=== PATIENT | female | born 1955 | race Two or more races ===

== ENCOUNTER 2017-12-10 15:05 | Inpatient (IN) | payer MEDICARE, OTHER ==
--- NOTE | 2017-12-10 15:44 | ED Physician Chart ---
ED Chief Complaint/HPI - Patient Information Date Seen:: 12/10/17 Time Seen:: 15:35 Chief Complaint:: combative History of Present Illness:: THIS IS A 62 YO FEMALE SENT FROM A [facility] FOR AN EVALUATION AND TREATMENT FOR HER PSYCHOSIS. SHE DENIES HAVING ANY CHEST, ABDOMEN AND HEAD PAIN. SHE ADMITS TO DIABETES AND HEART DISEASE. Allergies:: Allergies Allergy/AdvReac Type Severity Reaction Status Date / Time No Known Allergies Allergy Verified 12/10/17 15:20 Vitals:: Vital Signs - 8 hr 12/10/17 15:20 Temp 98.3 F HR 85 RR 16 BP 136/65 O2 Sat % 95 Historian:: Medical Records Review:: Nurse's Note Reviewed, Transfer documents Reviewed ED Review of Systems - Review of Systems General/Constitutional: No fever, No chills, No weight loss, No weakness, No diaphoresis, No edema, No loss of appetite Skin: No skin lesions, No rash, No bruising Head: No headache, No light-headedness Eyes: No loss of vision, No pain, No diplopia ENT: No earache, No nasal drainage, No sore throat, No tinnitus Neck: No neck pain, No swelling, No thyromegaly, No stiffness, No mass noted Cardio Vascular: No chest pain, No palpitations, No PND, No orthopnea, No edema Pulmonary: No SOB, No cough, No sputum, No wheezing GI: No nausea, No vomiting, No diarrhea, No pain, No melena, No hematochezia, No constipation, No hematemesis G/U: No dysuria, No frequency, No hematuria Musculoskeletal: No bone or joint pain, No back pain, No muscle pain Endocrine: No polyuria, No polydipsia Psychiatric: Prior psych history, No depression, No anxiety, No suicidal ideation Hematopoietic: No bruising, No lymphadenopathy Allergic/Immuno: No urticaria, No angioedema Neurological: No syncope, No focal symptoms, No weakness, No paresthesia, No headache, No seizure, No dizziness, No confusion, No vertigo ED Past Medical History - Past Medical History Obtainable: Yes Past Medical History: HTN, DM, CAD, CVA/TIA, Dyslipidemia Family History: None Social History: Non Smoker, No Alcohol, No Drug Use, Care Facility Surgical History: other (STENT PLACED IN THE HEART) Family Medical History - Family Member Brother History Unknown: Yes Age: 50 Ethnicity: Non- Living Status: Still Living Other Medical History: DOWNE'S SYNDROME ED Physical Exam - Physical Examination General/Constitutional: Awake, Well-developed, well-nourished, Alert, No distress, GCS 15, Non-toxic appearing, Ambulatory Head: Atraumatic Eyes: Lids, conjuctiva normal, PERRL, EOMI Skin: Nl inspection, No rash, No skin lesions, No ecchymosis, Well hydrated, No lymphadenopathy ENMT: External ears, nose nl, Nasal exam nl, Lips, teeth, gums nl Neck: Nontender, Full ROM w/o pain, No JVD, No nuchal rigidity, No bruit, No mass, No stridor Respiratory: Nl effort/Exclusion, Clear to Auscultation, No Wheeze/Rhonchi/Rales Cardio Vascular: RRR, No murmur, gallop, rubs, NL S1 S2 GI: No tenderness/rebounding/guarding, No organomegaly, No hernia, Normal BS's, Nondistended, No mass/bruits, No McBurney tenderness : No CVA tenderness Extremities: No tenderness or effusion, Full ROM, normal strength in all extremities, No edema, Normal digits & nails Neuro/Psych: Alert/oriented, DTR's symmetric, Normal sensory exam, Normal motor strength, Judgement/insight normal, Mood normal (COMBATIVE), Normal gait, No focal deficits Misc: Normal back, No paraspinal tenderness ED Labs/Radiology/EKG Results - Lab Results Results: Abnormal Lab Results 12/10/17 12/10/17 12/10/17 15:35 15:35 15:35 WBC 5.2 RBC 4.56 Hgb 14.2 Hct 42.4 MCV 93.2 MCH 31.2 H MCHC Differential 33.5 RDW 12.5 Plt Count 214 MPV 10.7 Neutrophils % 66.2 Lymphocytes % 27.0 Monocytes % 4.4 Eosinophils % 1.4 Basophils % 1.0 PT 10.2 INR 0.98 PTT (Actin FS) 19.6 L Sodium 131 L Potassium 4.9 Chloride 97 L Carbon Dioxide 24.9 Anion Gap 14.0 BUN 23 Creatinine 0.7 Est GFR ( Amer) > 60.0 Est GFR (Non-Af Amer) > 60.0 BUN/Creatinine Ratio 32.9 Glucose 639 H* Calcium 9.3 Total Bilirubin 0.3 AST 29 ALT 29 Alkaline Phosphatase 120 H Troponin I Total Protein 6.3 Albumin 3.6 L Globulin 2.7 Albumin/Globulin Ratio 1.3 12/10/17 15:35 WBC RBC Hgb Hct MCV MCH MCHC Differential RDW Plt Count MPV Neutrophils % Lymphocytes % Monocytes % Eosinophils % Basophils % PT INR PTT (Actin FS) Sodium Potassium Chloride Carbon Dioxide Anion Gap BUN Creatinine Est GFR ( Amer) Est GFR (Non-Af Amer) BUN/Creatinine Ratio Glucose Calcium Total Bilirubin AST ALT Alkaline Phosphatase Troponin I 0.01 Total Protein Albumin Globulin Albumin/Globulin Ratio - Radiology Results Results: CHEST X-RAY = NAD - EKG Interpretations EKG Time:: 15:20 Rate & Rhythm: RATE= 83, SINUS AND NO ECTOPY SEEN [place]: RIGHT ED Assessment - Assessment General Assessment: PSYCHOSIS DIABETES MELLITUS ED Septic Shock - . Is Septic Shock (SBP<90, OR Lactate>4 mmol\L) present?: No - <6hrs of presentation: Vital Signs: Vital Signs - 8 hr 12/10/17 15:20 Temp 98.3 F HR 85 RR 16 BP 136/65 O2 Sat % 95 ED Reassessment (Disposition) - Diagnosis Diagnosis:: PSYCHOSIS DIABETES MELLITUS - Patient Disposition Discharge/Transfer:: Acute Care w/in this hosp Admitting Medical Physician:: Samson Aldrich Admitting Psych Physician:: Florentin Wen Condition at Disposition:: Unchanged
[2017-12-10 15:47] LABS: % EOSINOPHILS 1.4 % (0.0-5.0); % MONOCYTES 4.4 % (2.0-10.0); % NEUTROPHILS 66.2 % (40.0-80.0); BASOPHILE ABSOLUTE 0.1 Th/cumm (0-0.2); EOSINOPHILE ABSOLUTE 0.1 Th/cmm (0.1-0.4); HEMATOCRIT 42.4 % (41.0-60); HEMOGLOBIN 14.2 gm/dL (12-16); LYMPHOCYTE ABSOLUTE 1.4 Th/cmm (1.5-3.0); MEAN CELL VOLUME 93.2 fl (81-100); MEAN CORPUSCULAR HEMOGLOBIN 31.2 pg (27.0-31.0); MEAN CORPUSCULAR HGB CONC 33.5 pg (28.0-36.0); MEAN PLATELET VOLUME 10.7 fl; MONOCYTE ABSOLUTE 0.2 Th/cmm (0.3-1.0); NEUTROPHILE ABSOLUTE 3.4 Th/cmm (1.8-8.0); PLATELET COUNT 214 Th/cmm (150-400); RED BLOOD COUNT 4.56 Mil/cmm (3.80-5.10); RED CELL DISTRIBUTION WIDTH 12.5 % (11.5-20.0); WHITE BLOOD COUNT 5.2 Th/cmm (4.8-10.8)
[2017-12-10 16:00] LABS: INR 0.98 (0.5-1.4); PROTHROMBIN TIME (TEST) 10.2 SECONDS (9.5-11.5)
[2017-12-10 16:01] LABS: ALB/GLOB RATIO 1.3 (1.0-1.8); ALBUMIN 3.6 gm/dL (3.7-5.3); ALKALINE PHOSPHATASE 120 U/L (34-104); BILIRUBIN,TOTAL 0.3 mg/dL (0.3-1.0); BUN - UREA NITROGEN 23 mg/dL (7-25); CALCIUM SERUM 9.3 mg/dL (8.6-10.3); CARBON DIOXIDE 24.9 mEq/L (21.0-31.0); CHLORIDE 97 mEq/L (98-107); CREATININE - SERUM 0.7 mg/dL (0.6-1.2); GFR AFRICAN-AMERICAN > 60.0 ml/min (>90); GFR NON AFRICAN-AMERICAN > 60.0 ml/min; POTASSIUM SERUM 4.9 mEq/L (3.5-5.1); SGOT 29 U/L (13-39); SGPT/ALT 29 U/L (7-52); SODIUM SERUM 131 mEq/L (136-145); TOTAL PROTEIN,SERUM 6.3 gm/dL (6.0-8.3)
[2017-12-10 16:03] LABS: GLUCOSE 639 mg/dL (70-105)
[2017-12-10] MEDS ORDERED: Sodium Chloride 0.45% 1,000 ML IV ONE (16:14)
[2017-12-10] MEDS ORDERED: INSULIN HUMAN REGULAR 100 UNITS/ML UNIT IV ONE (16:15)
[2017-12-10] MEDS ORDERED: INSULIN HUMAN REGULAR 100 UNITS/ML UNIT SUBQ ONE (16:15)
[2017-12-10] MEDS ORDERED: INSULIN HUMAN REGULAR 100 UNITS/ML UNIT ONE (16:29)
[2017-12-10 19:10] LABS: URINE SOURCE CLEAN C
[2017-12-10 19:12] LABS: URINE BILIRUBIN NEGATIVE (NEGATIVE); URINE BLOOD LARGE (NEGATIVE); URINE GLUCOSE (UA) >=1000 mg/dL (NEGATIVE); URINE KETONE TRACE mg/dL (NEGATIVE); URINE LEUKOCYTE ESTERASE TRACE (NEGATIVE); URINE MICROSCOPIC INDICATED? YES; URINE NITRATE NEGATIVE (NEGATIVE); URINE PROTEIN NEGATIVE (NEGATIVE); URINE UROBILINOGEN 0.2 E.U./dL (0.2 - 1.0)
[2017-12-10 19:18] LABS: URINE CLARITY CLOUDY (CLEAR); URINE COLOR YELLOW
[2017-12-10 19:19] LABS: URINE BACTERIA FEW /hpf (NONE SEEN); URINE EPITHELIAL CELLS OCCASIONAL /lpf (FEW)
[2017-12-10] MEDS ORDERED: Magnesium Hydroxide (MOM) 30 mL UDC PO PRN (19:19)
[2017-12-10] MEDS ORDERED: Maalox 30 mL Cup PO PRN (19:19)
[2017-12-10 19:21] LABS: URINE AMORPHOUS SEDIMENT MODERATE URATES (NONE SEEN)
[2017-12-10 19:35] VITALS: BP 118/55
[2017-12-10] MEDS: Atorvastatin Calcium 10 MG TAB PO SCH (20:36)
[2017-12-10] MEDS ORDERED: INSULIN GLARGINE HUM REC ANLOG 30 UNIT SUBQ SCH (21:00)
[2017-12-10] MEDS ORDERED: Non-Formulary Item 1 EA (Atorvastatin Calcium [Lipitor] 40 MG) PO SCH (21:00)
[2017-12-10] MEDS ORDERED: Magnesium Hydroxide (MOM) 30 mL UDC PO SCH (21:00)
[2017-12-10] MEDS ORDERED: INSULIN LISPRO 100 UNIT SUBQ SCH (21:00)
[2017-12-11] MEDS ORDERED: Non-Formulary Item 1 EA (Docusate Sodium [Docusate Sodium] 100 MG) PO SCH (09:00)
[2017-12-11] MEDS: Multivitamin Tab PO SCH (09:10)
[2017-12-11] MEDS: Multivitamin w/ Minerals Tab PO SCH (09:10)
[2017-12-11] MEDS: Aspirin 81mg Chewable Tab PO SCH (09:10)
--- NOTE | 2017-12-11 09:23 | Diagnostic Imaging Report ---
Chest x-ray single view History: Cough Comparison: None The heart size is normal. No focal pulmonary parenchymal processes. No hilar or mediastinal abnormalities. Impression: No acute abnormalities
[2017-12-11] MEDS ORDERED: Insulin Detemir 100 units/mL 10mL Vial SUBQ ONE (10:29)
[2017-12-11] MEDS ORDERED: INSULIN ASPART SLIDING SCALE 100 UNITS/ML UNIT SUBQ ONE (10:33)
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
[2017-12-11] MEDS: INSULIN ASPART SLIDING SCALE 100 UNITS/ML UNIT SUBQ SCH ×2 (12:12→18:23)
--- NOTE | 2017-12-11 17:55 | History & Physical ---
ADMIT DATE: 12/10/2017 REASON FOR ADMISSION: Agitation and combative behavior. HISTORY OF PRESENT ILLNESS: A 62-year-old female with past medical history significant for diabetes and hypertension, presents from care home for evaluation of agitation and behavioral aggressiveness. The patient was initially evaluated in the Emergency Room and medically cleared and admitted to psychiatric benz for further evaluation. The patient is awake and able to give some history although she is an unreliable historian. The patient denies any pain or distress. The patient and staff state that she has good appetite and oral intake. The patient appears cooperative and calm at this time. PAST MEDICAL HISTORY: The patient has history of insulin-dependent diabetes mellitus, hypertension, CVA with left-sided weakness, coronary artery disease, hyperlipidemia and depression. MEDICATIONS: As per reconciliation. ALLERGIES: The patient has allergy to IBUPROFEN. SOCIAL HISTORY: No tobacco, alcohol, or illicit drug use. FAMILY HISTORY: Noncontributory. REVIEW OF SYSTEMS: IMMUNOLOGIC: No recurrent infection. CARDIOVASCULAR: The patient has hypertension and heart disease. GASTROINTESTINAL: Denies nausea, vomiting, diarrhea. ENDOCRINE: The patient is diabetic. No thyroid disorder. NEUROLOGIC: The patient has had stroke before. No seizures. HEMATOLOGIC: No bleeding or clotting disorder. PHYSICAL EXAMINATION: GENERAL: The patient is awake and alert, in no acute distress. VITAL SIGNS: Temperature 98.3, pulse 77, respiration 18, blood pressure 105/57. SKIN: No acute lesions. HEENT: Pupils equally round, anicteric sclerae. NECK: Supple, no JVD, mass or bruit on auscultation. HEART: S1, S2, regular rate and rhythm. ABDOMEN: Soft, nontender, positive bowel sounds. EXTREMITIES: No clubbing, cyanosis, or edema. NEUROLOGIC: Left-sided weakness. LABORATORY DATA: Sodium is 131, potassium 4.9, BUN 23, creatinine 0.7, glucose is 639 on admission. IMPRESSION: 1. Insulin-dependent diabetes mellitus. 2. Hypertension ____. 3. Cerebrovascular accident. 4. Coronary artery disease. 5. Hyperlipidemia. 6. Depression. PLAN: The patient is admitted to [facility]. She is continued on current medications including her long-acting insulin as well as insulin sliding scale. I had a conversation with the staff today regarding glycemic control and close monitoring of her blood sugar. The patient is medically cleared to participate in activity. She will be followed while in facility. JOB# [id number]
[2017-12-11] MEDS: Atorvastatin Calcium 10 MG TAB PO SCH (21:36)
[2017-12-11] MEDS: Insulin Detemir 100 units/mL 10mL Vial SUBQ SCH (21:42)
[2017-12-11 23:02] LABS: A1C % 9.4 % (4.0-6.0)
[2017-12-12 06:55] LABS: ANION GAP 9.3 (7.0-16.0); BUN - UREA NITROGEN 19 mg/dL (7-25); CALCIUM SERUM 9.3 mg/dL (8.6-10.3); CARBON DIOXIDE 28.3 mEq/L (21.0-31.0); CHLORIDE 106 mEq/L (98-107); CREATININE - SERUM 0.5 mg/dL (0.6-1.2); GFR AFRICAN-AMERICAN > 60.0 ml/min (>90); GFR NON AFRICAN-AMERICAN > 60.0 ml/min; POTASSIUM SERUM 3.6 mEq/L (3.5-5.1); SODIUM SERUM 140 mEq/L (136-145)
[2017-12-12 07:04] LABS: GLUCOSE 51 mg/dL (70-105)
[2017-12-12] MEDS: INSULIN ASPART SLIDING SCALE 100 UNITS/ML UNIT SUBQ SCH ×4 (07:05→17:44)
[2017-12-12] MEDS: Multivitamin w/ Minerals Tab PO SCH (08:07)
[2017-12-12] MEDS: Aspirin 81mg Chewable Tab PO SCH (08:07)
[2017-12-12] MEDS: Multivitamin Tab PO SCH (08:07)
--- NOTE | 2017-12-12 15:28 | General Progress Note ---
Subjective - Review of Systems Service Date: 12/12/17 Subjective: resting comfortably no distress Objective - Results Result Diagrams: 12/10/17 15:35 12/12/17 06:18 Recent Labs: Laboratory Last Values WBC 5.2 Th/cmm (4.8-10.8) 12/10/17 15:35 RBC 4.56 Mil/cmm (3.80-5.10) 12/10/17 15:35 Hgb 14.2 gm/dL (12-16) 12/10/17 15:35 Hct 42.4 % (41.0-60) 12/10/17 15:35 MCV 93.2 fl (81-100) 12/10/17 15:35 MCH 31.2 pg (27.0-31.0) H 12/10/17 15:35 MCHC Differential 33.5 pg (28.0-36.0) 12/10/17 15:35 RDW 12.5 % (11.5-20.0) 12/10/17 15:35 Plt Count 214 Th/cmm (150-400) 12/10/17 15:35 MPV 10.7 fl 12/10/17 15:35 Neutrophils % 66.2 % (40.0-80.0) 12/10/17 15:35 Lymphocytes % 27.0 % (20.0-50.0) 12/10/17 15:35 Monocytes % 4.4 % (2.0-10.0) 12/10/17 15:35 Eosinophils % 1.4 % (0.0-5.0) 12/10/17 15:35 Basophils % 1.0 % (0.0-2.0) 12/10/17 15:35 PT 10.2 SECONDS (9.5-11.5) 12/10/17 15:35 INR 0.98 (0.5-1.4) 12/10/17 15:35 PTT (Actin FS) 19.6 SECONDS (26.0-38.0) L 12/10/17 15:35 Sodium 140 mEq/L (136-145) 12/12/17 06:18 Potassium 3.6 mEq/L (3.5-5.1) 12/12/17 06:18 Chloride 106 mEq/L (98-107) 12/12/17 06:18 Carbon Dioxide 28.3 mEq/L (21.0-31.0) 12/12/17 06:18 Anion Gap 9.3 (7.0-16.0) 12/12/17 06:18 BUN 19 mg/dL (7-25) 12/12/17 06:18 Creatinine 0.5 mg/dL (0.6-1.2) L 12/12/17 06:18 Est GFR ( Amer) > 60.0 ml/min (>90) 12/12/17 06:18 Est GFR (Non-Af Amer) > 60.0 ml/min 12/12/17 06:18 BUN/Creatinine Ratio 38.0 12/12/17 06:18 Glucose 51 mg/dL (70-105) L D 12/12/17 06:18 POC Glucose 421 MG/DL (70 - 105) H 12/12/17 12:05 Hemoglobin A1c % 9.4 % (4.0-6.0) H 12/10/17 15:35 Calcium 9.3 mg/dL (8.6-10.3) 12/12/17 06:18 Total Bilirubin 0.3 mg/dL (0.3-1.0) 12/10/17 15:35 AST 29 U/L (13-39) 12/10/17 15:35 ALT 29 U/L (7-52) 12/10/17 15:35 Alkaline Phosphatase 120 U/L (34-104) H 12/10/17 15:35 Troponin I 0.01 ng/mL (0.01-0.05) 12/10/17 15:35 Total Protein 6.3 gm/dL (6.0-8.3) 12/10/17 15:35 Albumin 3.6 gm/dL (3.7-5.3) L 12/10/17 15:35 Globulin 2.7 gm/dL 12/10/17 15:35 Albumin/Globulin Ratio 1.3 (1.0-1.8) 12/10/17 15:35 TSH 1.11 uIU/ml (0.34-5.60) 12/10/17 15:35 Urine Source CLEAN C 12/10/17 17:55 Urine Color YELLOW 12/10/17 17:55 Urine Clarity CLOUDY (CLEAR) H 12/10/17 17:55 Urine pH 6.0 (4.6 - 8.0) 12/10/17 17:55 Ur Specific [place] <= 1.005 (1.005-1.030) 12/10/17 17:55 Urine Protein NEGATIVE mg/dL (NEGATIVE) 12/10/17 17:55 Urine Glucose (UA) >=1000 mg/dL (NEGATIVE) H 12/10/17 17:55 Urine Ketones TRACE mg/dL (NEGATIVE) 12/10/17 17:55 Urine Blood LARGE (NEGATIVE) H 12/10/17 17:55 Urine Nitrate NEGATIVE (NEGATIVE) 12/10/17 17:55 Urine Bilirubin NEGATIVE (NEGATIVE) 12/10/17 17:55 Urine Urobilinogen 0.2 E.U./dL (0.2 - 1.0) 12/10/17 17:55 Ur Leukocyte Esterase TRACE (NEGATIVE) H 12/10/17 17:55 Urine RBC 5-10 /hpf (0-5) H 12/10/17 17:55 Urine WBC 2-5 /hpf (0-5) 12/10/17 17:55 Ur Epithelial Cells OCCASIONAL /lpf (FEW) 12/10/17 17:55 Amorphous Sediment MODERATE URATES (NONE SEEN) 12/10/17 17:55 Urine Bacteria FEW /hpf (NONE SEEN) 12/10/17 17:55 - Physical Exam Vitals and I&O: Vital Signs Temp 99.5 F 12/12/17 14:00 Pulse 76 12/12/17 14:00 Resp 20 12/12/17 14:00 BP 109/56 12/12/17 14:00 Pulse Ox 97 12/11/17 20:49 Intake & Output 12/11/17 12/12/17 12/12/17 18:59 06:59 18:59 Intake Total 1100 120 Balance 1100 120 Intake: Oral 1100 120 Other: # Voids 3 # Bowel Movements 0 Active Medications: Current Medications Acetaminophen (Tylenol) 650 mg PO Q4HR PRN PRN Reason: Mild Pain / Temp above 100 Stop: 02/08/18 19:18 Al Hydrox/Mg Hydrox/Simethicone (Maalox) 30 ml PO Q4HR PRN PRN Reason: GI DISTRESS Stop: 02/08/18 19:18 Aspirin (Aspirin Chewable) 81 mg PO DAILY KANG Stop: 02/09/18 08:59 Last Admin: 12/12/17 08:07 Dose: 81 mg Atorvastatin Calcium (Lipitor) 40 mg PO HS [facility]; Protocol Stop: 02/08/18 20:59 Last Admin: 12/11/17 21:36 Dose: 40 mg Clopidogrel Bisulfate (Plavix) 75 mg PO DAILY [facility] Stop: 02/09/18 08:59 Last Admin: 12/12/17 08:07 Dose: 75 mg Docusate Sodium (Colace) 100 mg PO DAILY [facility] Stop: 02/09/18 08:59 Last Admin: 12/12/17 08:07 Dose: 100 mg Insulin Aspart (Novolog Insulin Sliding Scale) 0 units SUBQ Q6HR [facility]; Protocol Stop: 02/09/18 11:59 Last Admin: 12/12/17 12:12 Dose: 13 units Insulin Detemir (Levemir Insulin) 30 units SUBQ HS [facility] Stop: 02/09/18 20:59 Last Admin: 12/11/17 21:42 Dose: 30 units Lorazepam (Ativan) 0.5 mg PO Q4HR PRN; Protocol PRN Reason: Anxiety Stop: 01/09/18 19:18 Magnesium Hydroxide (Milk Of Magnesia) 30 ml PO HS PRN PRN Reason: Constipation Metoprolol Tartrate (Lopressor) 25 mg PO BID [facility] Stop: 02/09/18 08:59 Last Admin: 12/12/17 08:07 Dose: 25 mg Multivitamins/Vitamin C (Theragran) 1 tab PO DAILY [facility] Stop: 02/09/18 08:59 Last Admin: 12/12/17 08:07 Dose: 1 tab Nitroglycerin (Nitrostat) 0.4 mg SL Q5MIN PRN PRN Reason: Chest Pain Stop: 02/08/18 18:09 Zolpidem Tartrate (Ambien) 5 mg PO HS PRN PRN Reason: Insomnia Stop: 02/08/18 19:18 Last Admin: 12/10/17 22:34 Dose: 5 mg General: No acute distress HEENT: Atraumatic, PERRLA Neck: Supple, JVD, Thyromegaly Cardiovascular: Regular rate, Normal S1, Normal S2 Lungs: Clear to auscultation Abdomen: Bowel sounds, Soft Assessment/Plan - Assessment Assessment: DM CAD HTN CVA - Plan Plan: cont current treatment Nutritional Asmnt/Malnutr-PDOC - Dietary Evaluation Malnutrition Findings (Please click <Entered> for more info): Nutritional Asmnt/Malnutrition Start: 12/12/17 09: 52 Text: Status: Complete Freq: Protocol: Document 12/12/17 09:52 [email or web address] F (Rec: 12/12/17 10:04 KARELY CARLOS- [email or web address]) Nutritional Asmnt/Malnutrition Patient General Information Nutritional Screening High Risk Consult Diagnosis Psychosis, cardiac disease Pertinent Medical Hx/Surgical Hx insulin-dependent diabetes, hypertension, CVA with left- sided weakness, coronary artery disease, hyperlipidemia , depression Subjective Information Consult received for cardiac diet. patient was admitted with BG 639. Patient in room at time of RD visit. Tolerating current diet order with adequate intake. Current Diet Order/ Nutrition Support Cardiac diet Patient / S.O Not Indicated Pertinent Medications maalox, lipitor, colace, novolog, levemir, MOM, Theragran Pertinent Labs Glucose 47-639, HGA1C 9.4, albumin 3.6 Nutritional Hx/Data Height 1.5 m Height (Calculated Centimeters) 149.9 Current Weight (lbs) 68.039 kg Weight (Calculated Kilograms) 68.0 Weight (Calculated Grams) 05573.9 [place] Body Weight 97.5 % [place] Body Weight 153 Body Mass Index (BMI) 30.2 Recent Weight Change No Weight Status Obese GI Symptoms GI Symptoms None Last BM none noted in EMR Difficult in: None Food Allergies No Cultural/Ethnic/Alevism Belief none indicated Usual diet at home unknown Skin Integrity/Comment: Roberto 17, No symptoms, abdomen soft, non-tender, round Current %PO Good (75-100%) Estimated Nutritional Goals BEE in Kcals: Adj wt of IBW Calories/Kcals/Kg 25-30 kcal/kg (using Adj wt 50 .2kg ) Kcals Calculated 9548-9903 kcal/day Protein: Adj wt of IBW Protein g/k-1.2 gm/kg Protein Calculated 50-60gm/day Fluid: ml 0182-5545 ml/day Nutritional Problem 1. Problem Problem Altered nutrition related lab values Etiology related to uncontrolled blood sugar aeb Signs/Symptoms: Glucose 47-639, HGA1C 9.4 Intervention/Recommendation Comments 1. Consider modifying diet to 45gm CCHO, cardiac diet. 2. MD to continue to modify insulin regimen for optimal glycemic control. Expected Outcomes/Goals Expected Outcomes/Goals Oral intake >75% of meals, weight stable or trend toward ideal body weight, nutrition related labs normalize
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
[2017-12-12] MEDS: Atorvastatin Calcium 10 MG TAB PO SCH (20:46)
[2017-12-12] MEDS: Insulin Detemir 100 units/mL 10mL Vial SUBQ SCH ×2 (21:00→22:39)
[2017-12-13] MEDS: INSULIN ASPART SLIDING SCALE 100 UNITS/ML UNIT SUBQ SCH ×4 (00:29→18:05)
[2017-12-13] MEDS: Multivitamin w/ Minerals Tab PO SCH (09:19)
[2017-12-13] MEDS: Aspirin 81mg Chewable Tab PO SCH (09:20)
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
--- NOTE | 2017-12-13 19:59 | Internal Medicine Prog Note ---
Internal Medicine Subjective - Subjective Service Date: 12/13/17 Patient seen and examined:: with staff Patient is:: awake, verbal, arousable, in bed, talking, confused Per staff patient has:: no adverse event Internal Medicine Objective - Results Result Diagrams: 12/10/17 15:35 12/12/17 06:18 Recent Labs: Laboratory Last Values WBC 5.2 Th/cmm (4.8-10.8) 12/10/17 15:35 RBC 4.56 Mil/cmm (3.80-5.10) 12/10/17 15:35 Hgb 14.2 gm/dL (12-16) 12/10/17 15:35 Hct 42.4 % (41.0-60) 12/10/17 15:35 MCV 93.2 fl (81-100) 12/10/17 15:35 MCH 31.2 pg (27.0-31.0) H 12/10/17 15:35 MCHC Differential 33.5 pg (28.0-36.0) 12/10/17 15:35 RDW 12.5 % (11.5-20.0) 12/10/17 15:35 Plt Count 214 Th/cmm (150-400) 12/10/17 15:35 MPV 10.7 fl 12/10/17 15:35 Neutrophils % 66.2 % (40.0-80.0) 12/10/17 15:35 Lymphocytes % 27.0 % (20.0-50.0) 12/10/17 15:35 Monocytes % 4.4 % (2.0-10.0) 12/10/17 15:35 Eosinophils % 1.4 % (0.0-5.0) 12/10/17 15:35 Basophils % 1.0 % (0.0-2.0) 12/10/17 15:35 PT 10.2 SECONDS (9.5-11.5) 12/10/17 15:35 INR 0.98 (0.5-1.4) 12/10/17 15:35 PTT (Actin FS) 19.6 SECONDS (26.0-38.0) L 12/10/17 15:35 Sodium 140 mEq/L (136-145) 12/12/17 06:18 Potassium 3.6 mEq/L (3.5-5.1) 12/12/17 06:18 Chloride 106 mEq/L (98-107) 12/12/17 06:18 Carbon Dioxide 28.3 mEq/L (21.0-31.0) 12/12/17 06:18 Anion Gap 9.3 (7.0-16.0) 12/12/17 06:18 BUN 19 mg/dL (7-25) 12/12/17 06:18 Creatinine 0.5 mg/dL (0.6-1.2) L 12/12/17 06:18 Est GFR ( Amer) > 60.0 ml/min (>90) 12/12/17 06:18 Est GFR (Non-Af Amer) > 60.0 ml/min 12/12/17 06:18 BUN/Creatinine Ratio 38.0 12/12/17 06:18 Glucose 51 mg/dL (70-105) L D 12/12/17 06:18 POC Glucose 73 MG/DL (70 - 105) 12/13/17 05:22 Hemoglobin A1c % 9.4 % (4.0-6.0) H 12/10/17 15:35 Calcium 9.3 mg/dL (8.6-10.3) 12/12/17 06:18 Total Bilirubin 0.3 mg/dL (0.3-1.0) 12/10/17 15:35 AST 29 U/L (13-39) 12/10/17 15:35 ALT 29 U/L (7-52) 12/10/17 15:35 Alkaline Phosphatase 120 U/L (34-104) H 12/10/17 15:35 Troponin I 0.01 ng/mL (0.01-0.05) 12/10/17 15:35 Total Protein 6.3 gm/dL (6.0-8.3) 12/10/17 15:35 Albumin 3.6 gm/dL (3.7-5.3) L 12/10/17 15:35 Globulin 2.7 gm/dL 12/10/17 15:35 Albumin/Globulin Ratio 1.3 (1.0-1.8) 12/10/17 15:35 TSH 1.11 uIU/ml (0.34-5.60) 12/10/17 15:35 Urine Source CLEAN C 12/10/17 17:55 Urine Color YELLOW 12/10/17 17:55 Urine Clarity CLOUDY (CLEAR) H 12/10/17 17:55 Urine pH 6.0 (4.6 - 8.0) 12/10/17 17:55 Ur Specific [place] <= 1.005 (1.005-1.030) 12/10/17 17:55 Urine Protein NEGATIVE mg/dL (NEGATIVE) 12/10/17 17:55 Urine Glucose (UA) >=1000 mg/dL (NEGATIVE) H 12/10/17 17:55 Urine Ketones TRACE mg/dL (NEGATIVE) 12/10/17 17:55 Urine Blood LARGE (NEGATIVE) H 12/10/17 17:55 Urine Nitrate NEGATIVE (NEGATIVE) 12/10/17 17:55 Urine Bilirubin NEGATIVE (NEGATIVE) 12/10/17 17:55 Urine Urobilinogen 0.2 E.U./dL (0.2 - 1.0) 12/10/17 17:55 Ur Leukocyte Esterase TRACE (NEGATIVE) H 12/10/17 17:55 Urine RBC 5-10 /hpf (0-5) H 12/10/17 17:55 Urine WBC 2-5 /hpf (0-5) 12/10/17 17:55 Ur Epithelial Cells OCCASIONAL /lpf (FEW) 12/10/17 17:55 Amorphous Sediment MODERATE URATES (NONE SEEN) 12/10/17 17:55 Urine Bacteria FEW /hpf (NONE SEEN) 12/10/17 17:55 - Physical Exam Vitals and I&O: Vital Signs Temp 98.3 F 12/13/17 16:43 Pulse 62 12/13/17 16:49 Resp 20 12/13/17 16:43 BP 117/69 12/13/17 16:49 Pulse Ox 98 12/13/17 06:36 Intake & Output 12/13/17 12/13/17 12/14/17 06:59 18:59 06:59 Intake Total 240 1400 Balance 240 1400 Intake: Oral 240 1400 Other: # Voids 2 5 # Bowel Movements 1 Active Medications: Current Medications Acetaminophen (Tylenol) 650 mg PO Q4HR PRN PRN Reason: Mild Pain / Temp above 100 Stop: 02/08/18 19:18 Al Hydrox/Mg Hydrox/Simethicone (Maalox) 30 ml PO Q4HR PRN PRN Reason: GI DISTRESS Stop: 02/08/18 19:18 Aspirin (Aspirin Chewable) 81 mg PO DAILY [facility] Stop: 02/09/18 08:59 Last Admin: 12/13/17 09:20 Dose: 81 mg Atorvastatin Calcium (Lipitor) 40 mg PO HS [facility]; Protocol Stop: 02/08/18 20:59 Clopidogrel Bisulfate (Plavix) 75 mg PO DAILY [facility] Stop: 02/09/18 08:59 Last Admin: 12/13/17 09:19 Dose: 75 mg Docusate Sodium (Colace) 100 mg PO DAILY [facility] Stop: 02/09/18 08:59 Last Admin: 12/13/17 09:20 Dose: 100 mg Insulin Aspart (Novolog Insulin Sliding Scale) 0 units SUBQ Q6HR [facility]; Protocol Stop: 02/09/18 11:59 Last Admin: 12/13/17 11:55 Dose: Not Given Insulin Detemir (Levemir Insulin) 30 units SUBQ HS [facility] Stop: 02/09/18 20:59 Last Admin: 12/12/17 21:00 Dose: 30 units Lorazepam (Ativan) 0.5 mg PO Q4HR PRN; Protocol PRN Reason: Anxiety Stop: 01/09/18 19:18 Last Admin: 12/13/17 14:20 Dose: 0.5 mg Magnesium Hydroxide (Milk Of Magnesia) 30 ml PO HS PRN PRN Reason: Constipation Metoprolol Tartrate (Lopressor) 25 mg PO BID [facility] Stop: 02/09/18 08:59 Last Admin: 12/13/17 16:49 Dose: 25 mg Nitroglycerin (Nitrostat) 0.4 mg SL Q5MIN PRN PRN Reason: Chest Pain Stop: 02/08/18 18:09 Quetiapine Fumarate (Seroquel) 25 mg PO BID [facility]; Protocol Stop: 02/11/18 16:59 Zolpidem Tartrate (Ambien) 5 mg PO HS PRN PRN Reason: Insomnia Stop: 02/08/18 19:18 Last Admin: 12/12/17 20:46 Dose: 5 mg General: demented HEENT: NC/AT, PERRLA, EOMI, anicteric sclerae, throat clear Neck: No thyromegaly, +2 carotid pulse wo bruit, + JVD Lungs: CTAB Cardiovascular: RRR, Normal S1, Normal S2, without murmur Abdomen: soft, non-tender, non-distended Extremities: clear Neurological: no change Internal Medicine Assmt/Plan - Assessment Assessment: 1.DM. 2.HTN. 3.CVA. 4.CAD. 5.HYPERLIPIDEMIA. 6.DEMENTIA. - Plan Plan: CONTINUE ON CURRENT MEDICATION AND DIET. Nutritional Asmnt/Malnutr-PDOC - Dietary Evaluation Malnutrition Findings (Please click <Entered> for more info): Nutritional Asmnt/Malnutrition Start: 12/12/17 09: 52 Text: Status: Complete Freq: Protocol: Document 12/12/17 09:52 KARELY (Rec: 12/12/17 10:04 KARELY GONZALEZ- [email or web address]) Nutritional Asmnt/Malnutrition Patient General Information Nutritional Screening High Risk Consult Diagnosis Psychosis, cardiac disease Pertinent Medical Hx/Surgical Hx insulin-dependent diabetes, hypertension, CVA with left- sided weakness, coronary artery disease, hyperlipidemia , depression Subjective Information Consult received for cardiac diet. patient was admitted with BG 639. Patient in room at time of RD visit. Tolerating current diet order with adequate intake. Current Diet Order/ Nutrition Support Cardiac diet Patient / S.O Not Indicated Pertinent Medications maalox, lipitor, colace, novolog, levemir, MOM, Theragran Pertinent Labs Glucose 47-639, HGA1C 9.4, albumin 3.6 Nutritional Hx/Data Height 1.5 m Height (Calculated Centimeters) 149.9 Current Weight (lbs) 68.039 kg Weight (Calculated Kilograms) 68.0 Weight (Calculated Grams) 93284.9 [place] Body Weight 97.5 % [place] Body Weight 153 Body Mass Index (BMI) 30.2 Recent Weight Change No Weight Status Obese GI Symptoms GI Symptoms None Last BM none noted in EMR Difficult in: None Food Allergies No Cultural/Ethnic/Tenriism Belief none indicated Usual diet at home unknown Skin Integrity/Comment: Roberto 17, No symptoms, abdomen soft, non-tender, round Current %PO Good (75-100%) Estimated Nutritional Goals BEE in Kcals: Adj wt of IBW Calories/Kcals/Kg 25-30 kcal/kg (using Adj wt 50 .2kg ) Kcals Calculated 5701-7359 kcal/day Protein: Adj wt of IBW Protein g/k-1.2 gm/kg Protein Calculated 50-60gm/day Fluid: ml 1475-9362 ml/day Nutritional Problem 1. Problem Problem Altered nutrition related lab values Etiology related to uncontrolled blood sugar aeb Signs/Symptoms: Glucose 47-639, HGA1C 9.4 Intervention/Recommendation Comments 1. Consider modifying diet to 45gm CCHO, cardiac diet. 2. MD to continue to modify insulin regimen for optimal glycemic control. Expected Outcomes/Goals Expected Outcomes/Goals Oral intake >75% of meals, weight stable or trend toward ideal body weight, nutrition related labs normalize
[2017-12-13] MEDS: Insulin Detemir 100 units/mL 10mL Vial SUBQ SCH (21:11)
[2017-12-13] MEDS ORDERED: INSULIN ASPART, RECOMBINANT 100 UNITS/ML SUBQ ONE (22:02)
[2017-12-14] MEDS: INSULIN ASPART SLIDING SCALE 100 UNITS/ML UNIT SUBQ SCH ×4 (00:31→18:00)
[2017-12-14] MEDS: Multivitamin w/ Minerals Tab PO SCH (09:18)
[2017-12-14] MEDS: Aspirin 81mg Chewable Tab PO SCH (09:18)
--- NOTE | 2017-12-14 16:15 | Progress Notes ---
DATE: 12/14/2017 SUBJECTIVE: The patient with ongoing behaviors, unruly behaviors, impulsive, unpredictable, still isolative, concerns about medication compliance. The patient is sleeping well, eating well, mostly withdrawn, keeps to herself. ASSESSMENT: The patient remains impulsive, unpredictable, concerns about compliance. She is somewhat calmer today. Staff noting she remains impulsive, poorly oriented, does not know where she is coming from. Does not know where she is going to go, forgetful, and confused. JOB# [id number]
--- NOTE | 2017-12-14 20:47 | Internal Medicine Prog Note ---
Internal Medicine Subjective - Subjective Service Date: 12/14/17 Patient seen and examined:: without staff Patient is:: awake, verbal, arousable, in bed, talking, confused Per staff patient has:: no adverse event Internal Medicine Objective - Results Result Diagrams: 12/10/17 15:35 12/12/17 06:18 Recent Labs: Laboratory Last Values WBC 5.2 Th/cmm (4.8-10.8) 12/10/17 15:35 RBC 4.56 Mil/cmm (3.80-5.10) 12/10/17 15:35 Hgb 14.2 gm/dL (12-16) 12/10/17 15:35 Hct 42.4 % (41.0-60) 12/10/17 15:35 MCV 93.2 fl (81-100) 12/10/17 15:35 MCH 31.2 pg (27.0-31.0) H 12/10/17 15:35 MCHC Differential 33.5 pg (28.0-36.0) 12/10/17 15:35 RDW 12.5 % (11.5-20.0) 12/10/17 15:35 Plt Count 214 Th/cmm (150-400) 12/10/17 15:35 MPV 10.7 fl 12/10/17 15:35 Neutrophils % 66.2 % (40.0-80.0) 12/10/17 15:35 Lymphocytes % 27.0 % (20.0-50.0) 12/10/17 15:35 Monocytes % 4.4 % (2.0-10.0) 12/10/17 15:35 Eosinophils % 1.4 % (0.0-5.0) 12/10/17 15:35 Basophils % 1.0 % (0.0-2.0) 12/10/17 15:35 PT 10.2 SECONDS (9.5-11.5) 12/10/17 15:35 INR 0.98 (0.5-1.4) 12/10/17 15:35 PTT (Actin FS) 19.6 SECONDS (26.0-38.0) L 12/10/17 15:35 Sodium 140 mEq/L (136-145) 12/12/17 06:18 Potassium 3.6 mEq/L (3.5-5.1) 12/12/17 06:18 Chloride 106 mEq/L (98-107) 12/12/17 06:18 Carbon Dioxide 28.3 mEq/L (21.0-31.0) 12/12/17 06:18 Anion Gap 9.3 (7.0-16.0) 12/12/17 06:18 BUN 19 mg/dL (7-25) 12/12/17 06:18 Creatinine 0.5 mg/dL (0.6-1.2) L 12/12/17 06:18 Est GFR ( Amer) > 60.0 ml/min (>90) 12/12/17 06:18 Est GFR (Non-Af Amer) > 60.0 ml/min 12/12/17 06:18 BUN/Creatinine Ratio 38.0 12/12/17 06:18 Glucose 628 mg/dL (70-105) H* 12/13/17 22:10 POC Glucose 187 MG/DL (70 - 105) H 12/14/17 05:22 Hemoglobin A1c % 9.4 % (4.0-6.0) H 12/10/17 15:35 Calcium 9.3 mg/dL (8.6-10.3) 12/12/17 06:18 Total Bilirubin 0.3 mg/dL (0.3-1.0) 12/10/17 15:35 AST 29 U/L (13-39) 12/10/17 15:35 ALT 29 U/L (7-52) 12/10/17 15:35 Alkaline Phosphatase 120 U/L (34-104) H 12/10/17 15:35 Troponin I 0.01 ng/mL (0.01-0.05) 12/10/17 15:35 Total Protein 6.3 gm/dL (6.0-8.3) 12/10/17 15:35 Albumin 3.6 gm/dL (3.7-5.3) L 12/10/17 15:35 Globulin 2.7 gm/dL 12/10/17 15:35 Albumin/Globulin Ratio 1.3 (1.0-1.8) 12/10/17 15:35 TSH 1.11 uIU/ml (0.34-5.60) 12/10/17 15:35 Urine Source CLEAN C 12/10/17 17:55 Urine Color YELLOW 12/10/17 17:55 Urine Clarity CLOUDY (CLEAR) H 12/10/17 17:55 Urine pH 6.0 (4.6 - 8.0) 12/10/17 17:55 Ur Specific [place] <= 1.005 (1.005-1.030) 12/10/17 17:55 Urine Protein NEGATIVE mg/dL (NEGATIVE) 12/10/17 17:55 Urine Glucose (UA) >=1000 mg/dL (NEGATIVE) H 12/10/17 17:55 Urine Ketones TRACE mg/dL (NEGATIVE) 12/10/17 17:55 Urine Blood LARGE (NEGATIVE) H 12/10/17 17:55 Urine Nitrate NEGATIVE (NEGATIVE) 12/10/17 17:55 Urine Bilirubin NEGATIVE (NEGATIVE) 12/10/17 17:55 Urine Urobilinogen 0.2 E.U./dL (0.2 - 1.0) 12/10/17 17:55 Ur Leukocyte Esterase TRACE (NEGATIVE) H 12/10/17 17:55 Urine RBC 5-10 /hpf (0-5) H 12/10/17 17:55 Urine WBC 2-5 /hpf (0-5) 12/10/17 17:55 Ur Epithelial Cells OCCASIONAL /lpf (FEW) 12/10/17 17:55 Amorphous Sediment MODERATE URATES (NONE SEEN) 12/10/17 17:55 Urine Bacteria FEW /hpf (NONE SEEN) 12/10/17 17:55 - Physical Exam Vitals and I&O: Vital Signs Temp 98.5 F 12/14/17 14:00 Pulse 80 12/14/17 16:58 Resp 20 12/14/17 14:00 BP 121/78 12/14/17 16:58 Pulse Ox 97 12/14/17 14:00 Intake & Output 12/14/17 12/14/17 12/15/17 06:59 18:59 06:59 Intake Total 120 900 Balance 120 900 Intake: Oral 120 900 Other: # Voids 3 4 # Bowel Movements 1 Active Medications: Current Medications Acetaminophen (Tylenol) 650 mg PO Q4HR PRN PRN Reason: Mild Pain / Temp above 100 Stop: 02/08/18 19:18 Al Hydrox/Mg Hydrox/Simethicone (Maalox) 30 ml PO Q4HR PRN PRN Reason: GI DISTRESS Stop: 02/08/18 19:18 Aspirin (Aspirin Chewable) 81 mg PO DAILY [facility] Stop: 02/09/18 08:59 Last Admin: 12/14/17 09:18 Dose: 81 mg Atorvastatin Calcium (Lipitor) 40 mg PO HS [facility]; Protocol Stop: 02/08/18 20:59 Last Admin: 12/14/17 20:36 Dose: 40 mg Clopidogrel Bisulfate (Plavix) 75 mg PO DAILY [facility] Stop: 02/09/18 08:59 Last Admin: 12/14/17 09:18 Dose: 75 mg Docusate Sodium (Colace) 100 mg PO DAILY [facility] Stop: 02/09/18 08:59 Last Admin: 12/14/17 09:19 Dose: 100 mg Insulin Aspart (Novolog Insulin Sliding Scale) 0 units SUBQ Q6HR [facility]; Protocol Stop: 02/09/18 11:59 Last Admin: 12/14/17 18:00 Dose: Not Given Insulin Detemir (Levemir Insulin) 30 units SUBQ HS [facility] Stop: 02/09/18 20:59 Last Admin: 12/13/17 21:11 Dose: 30 units Lorazepam (Ativan) 0.5 mg PO Q4HR PRN; Protocol PRN Reason: Anxiety Stop: 01/09/18 19:18 Last Admin: 12/13/17 14:20 Dose: 0.5 mg Magnesium Hydroxide (Milk Of Magnesia) 30 ml PO HS PRN PRN Reason: Constipation Metoprolol Tartrate (Lopressor) 25 mg PO BID [facility] Stop: 02/09/18 08:59 Last Admin: 12/14/17 16:58 Dose: 25 mg Nitroglycerin (Nitrostat) 0.4 mg SL Q5MIN PRN PRN Reason: Chest Pain Stop: 02/08/18 18:09 Quetiapine Fumarate (Seroquel) 25 mg PO BID [facility]; Protocol Stop: 02/11/18 16:59 Last Admin: 12/14/17 16:59 Dose: 25 mg Zolpidem Tartrate (Ambien) 5 mg PO HS PRN PRN Reason: Insomnia Stop: 02/08/18 19:18 Last Admin: 12/12/17 20:46 Dose: 5 mg General: demented HEENT: NC/AT, PERRLA, EOMI, anicteric sclerae, throat clear Neck: No thyromegaly, +2 carotid pulse wo bruit, + JVD Lungs: CTAB Cardiovascular: RRR, Normal S1, Normal S2, without murmur Abdomen: soft, non-tender, non-distended Extremities: clear Neurological: no change Internal Medicine Assmt/Plan - Assessment Assessment: 1.DM. 2.HTN. 3.CVA. 4.CAD. 5.HYPERLIPIDEMIA. 6.DEMENTIA. - Plan Plan: CONTINUE ON CURRENT MEDICATION AND DIET.sliding scale with regular insulin coverege ac and sh. Nutritional Asmnt/Malnutr-PDOC - Dietary Evaluation Malnutrition Findings (Please click <Entered> for more info): Nutritional Asmnt/Malnutrition Start: 12/12/17 09: 52 Text: Status: Complete Freq: Protocol: Document 12/12/17 09:52 KARELY (Rec: 12/12/17 10:04 KARELY GONZALEZ- FNS1) Nutritional Asmnt/Malnutrition Patient General Information Nutritional Screening High Risk Consult Diagnosis Psychosis, cardiac disease Pertinent Medical Hx/Surgical Hx insulin-dependent diabetes, hypertension, CVA with left- sided weakness, coronary artery disease, hyperlipidemia , depression Subjective Information Consult received for cardiac diet. patient was admitted with BG 639. Patient in room at time of RD visit. Tolerating current diet order with adequate intake. Current Diet Order/ Nutrition Support Cardiac diet Patient / S.O Not Indicated Pertinent Medications maalox, lipitor, colace, novolog, levemir, MOM, Theragran Pertinent Labs Glucose 47-639, HGA1C 9.4, albumin 3.6 Nutritional Hx/Data Height 1.5 m Height (Calculated Centimeters) 149.9 Current Weight (lbs) 68.039 kg Weight (Calculated Kilograms) 68.0 Weight (Calculated Grams) 63760.9 [place] Body Weight 97.5 % [place] Body Weight 153 Body Mass Index (BMI) 30.2 Recent Weight Change No Weight Status Obese GI Symptoms GI Symptoms None Last BM none noted in EMR Difficult in: None Food Allergies No Cultural/Ethnic/Hoahaoism Belief none indicated Usual diet at home unknown Skin Integrity/Comment: Roberto 17, No symptoms, abdomen soft, non-tender, round Current %PO Good (75-100%) Estimated Nutritional Goals BEE in Kcals: Adj wt of IBW Calories/Kcals/Kg 25-30 kcal/kg (using Adj wt 50 .2kg ) Kcals Calculated 0639-0400 kcal/day Protein: Adj wt of IBW Protein g/k-1.2 gm/kg Protein Calculated 50-60gm/day Fluid: ml 2783-2386 ml/day Nutritional Problem 1. Problem Problem Altered nutrition related lab values Etiology related to uncontrolled blood sugar aeb Signs/Symptoms: Glucose 47-639, HGA1C 9.4 Intervention/Recommendation Comments 1. Consider modifying diet to 45gm CCHO, cardiac diet. 2. MD to continue to modify insulin regimen for optimal glycemic control. Expected Outcomes/Goals Expected Outcomes/Goals Oral intake >75% of meals, weight stable or trend toward ideal body weight, nutrition related labs normalize
[2017-12-14] MEDS: Insulin Detemir 100 units/mL 10mL Vial SUBQ SCH (21:48)
[2017-12-15] MEDS: INSULIN ASPART SLIDING SCALE 100 UNITS/ML UNIT SUBQ SCH ×5 (06:35→21:37)
[2017-12-15] MEDS: Multivitamin w/ Minerals Tab PO SCH (08:37)
[2017-12-15] MEDS: Aspirin 81mg Chewable Tab PO SCH (08:38)
--- NOTE | 2017-12-15 10:04 | Progress Notes ---
DATE: 12/15/2017 SUBJECTIVE: The patient with ongoing behaviors, unruly behavior, is noted to be impulsive, unpredictable, isolative, concerns about medication compliance. She has been doing better. She seems to be more compliant with medications, significantly calmer, still remains forgetful, fully oriented. No longer as agitated and aggressive. She does remain highly impulsive, unpredictable. ASSESSMENT: The patient is forgetful, impulsive, ongoing safety concerns. She had been aggressive few days prior. We will continue to monitor. The patient does not know why she is here, the year, the month. [facility]# [id number]
--- NOTE | 2017-12-15 20:30 | Internal Medicine Prog Note ---
Internal Medicine Subjective - Subjective Service Date: 12/15/17 Patient seen and examined:: without staff Patient is:: awake, verbal, arousable, in bed, talking, confused Per staff patient has:: no adverse event Internal Medicine Objective - Results Result Diagrams: 12/10/17 15:35 12/12/17 06:18 Recent Labs: Laboratory Last Values WBC 5.2 Th/cmm (4.8-10.8) 12/10/17 15:35 RBC 4.56 Mil/cmm (3.80-5.10) 12/10/17 15:35 Hgb 14.2 gm/dL (12-16) 12/10/17 15:35 Hct 42.4 % (41.0-60) 12/10/17 15:35 MCV 93.2 fl (81-100) 12/10/17 15:35 MCH 31.2 pg (27.0-31.0) H 12/10/17 15:35 MCHC Differential 33.5 pg (28.0-36.0) 12/10/17 15:35 RDW 12.5 % (11.5-20.0) 12/10/17 15:35 Plt Count 214 Th/cmm (150-400) 12/10/17 15:35 MPV 10.7 fl 12/10/17 15:35 Neutrophils % 66.2 % (40.0-80.0) 12/10/17 15:35 Lymphocytes % 27.0 % (20.0-50.0) 12/10/17 15:35 Monocytes % 4.4 % (2.0-10.0) 12/10/17 15:35 Eosinophils % 1.4 % (0.0-5.0) 12/10/17 15:35 Basophils % 1.0 % (0.0-2.0) 12/10/17 15:35 PT 10.2 SECONDS (9.5-11.5) 12/10/17 15:35 INR 0.98 (0.5-1.4) 12/10/17 15:35 PTT (Actin FS) 19.6 SECONDS (26.0-38.0) L 12/10/17 15:35 Sodium 140 mEq/L (136-145) 12/12/17 06:18 Potassium 3.6 mEq/L (3.5-5.1) 12/12/17 06:18 Chloride 106 mEq/L (98-107) 12/12/17 06:18 Carbon Dioxide 28.3 mEq/L (21.0-31.0) 12/12/17 06:18 Anion Gap 9.3 (7.0-16.0) 12/12/17 06:18 BUN 19 mg/dL (7-25) 12/12/17 06:18 Creatinine 0.5 mg/dL (0.6-1.2) L 12/12/17 06:18 Est GFR ( Amer) > 60.0 ml/min (>90) 12/12/17 06:18 Est GFR (Non-Af Amer) > 60.0 ml/min 12/12/17 06:18 BUN/Creatinine Ratio 38.0 12/12/17 06:18 Glucose 628 mg/dL (70-105) H* 12/13/17 22:10 POC Glucose 327 MG/DL (70 - 105) H 12/15/17 11:13 Hemoglobin A1c % 9.4 % (4.0-6.0) H 12/10/17 15:35 Calcium 9.3 mg/dL (8.6-10.3) 12/12/17 06:18 Total Bilirubin 0.3 mg/dL (0.3-1.0) 12/10/17 15:35 AST 29 U/L (13-39) 12/10/17 15:35 ALT 29 U/L (7-52) 12/10/17 15:35 Alkaline Phosphatase 120 U/L (34-104) H 12/10/17 15:35 Troponin I 0.01 ng/mL (0.01-0.05) 12/10/17 15:35 Total Protein 6.3 gm/dL (6.0-8.3) 12/10/17 15:35 Albumin 3.6 gm/dL (3.7-5.3) L 12/10/17 15:35 Globulin 2.7 gm/dL 12/10/17 15:35 Albumin/Globulin Ratio 1.3 (1.0-1.8) 12/10/17 15:35 TSH 1.11 uIU/ml (0.34-5.60) 12/10/17 15:35 Urine Source CLEAN C 12/10/17 17:55 Urine Color YELLOW 12/10/17 17:55 Urine Clarity CLOUDY (CLEAR) H 12/10/17 17:55 Urine pH 6.0 (4.6 - 8.0) 12/10/17 17:55 Ur Specific [place] <= 1.005 (1.005-1.030) 12/10/17 17:55 Urine Protein NEGATIVE mg/dL (NEGATIVE) 12/10/17 17:55 Urine Glucose (UA) >=1000 mg/dL (NEGATIVE) H 12/10/17 17:55 Urine Ketones TRACE mg/dL (NEGATIVE) 12/10/17 17:55 Urine Blood LARGE (NEGATIVE) H 12/10/17 17:55 Urine Nitrate NEGATIVE (NEGATIVE) 12/10/17 17:55 Urine Bilirubin NEGATIVE (NEGATIVE) 12/10/17 17:55 Urine Urobilinogen 0.2 E.U./dL (0.2 - 1.0) 12/10/17 17:55 Ur Leukocyte Esterase TRACE (NEGATIVE) H 12/10/17 17:55 Urine RBC 5-10 /hpf (0-5) H 12/10/17 17:55 Urine WBC 2-5 /hpf (0-5) 12/10/17 17:55 Ur Epithelial Cells OCCASIONAL /lpf (FEW) 12/10/17 17:55 Amorphous Sediment MODERATE URATES (NONE SEEN) 12/10/17 17:55 Urine Bacteria FEW /hpf (NONE SEEN) 12/10/17 17:55 - Physical Exam Vitals and I&O: Vital Signs Temp 97.6 F 12/15/17 14:00 Pulse 83 12/15/17 16:51 Resp 20 12/15/17 14:00 BP 106/56 12/15/17 16:51 Pulse Ox 96 12/15/17 14:00 Intake & Output 12/15/17 12/15/17 12/16/17 06:59 18:59 06:59 Intake Total 1200 Balance 1200 Intake: Oral 1200 Other: # Bowel Movements 1 Active Medications: Current Medications Acetaminophen (Tylenol) 650 mg PO Q4HR PRN PRN Reason: Mild Pain / Temp above 100 Stop: 02/08/18 19:18 Aspirin (Aspirin Chewable) 81 mg PO DAILY [facility] Stop: 02/09/18 08:59 Last Admin: 12/15/17 08:38 Dose: 81 mg Atorvastatin Calcium (Lipitor) 40 mg PO HS COUNTS INCLUDE 234 BEDS AT THE [facility]; Protocol Stop: 02/08/18 20:59 Last Admin: 12/14/17 20:36 Dose: 40 mg Clopidogrel Bisulfate (Plavix) 75 mg PO DAILY COUNTS INCLUDE 234 BEDS AT THE [facility] Stop: 02/09/18 08:59 Last Admin: 12/15/17 08:37 Dose: 75 mg Docusate Sodium (Colace) 100 mg PO DAILY COUNTS INCLUDE 234 BEDS AT THE [facility] Stop: 02/09/18 08:59 Last Admin: 12/15/17 08:38 Dose: 100 mg Insulin Aspart (Novolog Insulin Sliding Scale) 0 units SUBQ ACHS COUNTS INCLUDE 234 BEDS AT THE [facility]; Protocol Stop: 02/12/18 20:59 Last Admin: 12/15/17 16:28 Dose: 5 units Insulin Detemir (Levemir Insulin) 30 units SUBQ HS COUNTS INCLUDE 234 BEDS AT THE [facility] Stop: 02/09/18 20:59 Last Admin: 12/14/17 21:48 Dose: 30 units Lorazepam (Ativan) 0.5 mg PO Q4HR PRN; Protocol PRN Reason: Anxiety Stop: 01/09/18 19:18 Last Admin: 12/13/17 14:20 Dose: 0.5 mg Magnesium Hydroxide (Milk Of Magnesia) 30 ml PO HS PRN PRN Reason: Constipation Metoprolol Tartrate (Lopressor) 25 mg PO BID COUNTS INCLUDE 234 BEDS AT THE [facility] Stop: 02/09/18 08:59 Last Admin: 12/15/17 16:51 Dose: 25 mg Nitroglycerin (Nitrostat) 0.4 mg SL Q5MIN PRN PRN Reason: Chest Pain Stop: 02/08/18 18:09 Quetiapine Fumarate (Seroquel) 25 mg PO BID COUNTS INCLUDE 234 BEDS AT THE [facility]; Protocol Stop: 02/11/18 16:59 Last Admin: 12/15/17 16:51 Dose: 25 mg Zolpidem Tartrate (Ambien) 5 mg PO HS PRN PRN Reason: Insomnia Stop: 02/08/18 19:18 Last Admin: 12/12/17 20:46 Dose: 5 mg General: demented HEENT: NC/AT, PERRLA, EOMI, anicteric sclerae, throat clear Neck: No thyromegaly, +2 carotid pulse wo bruit, + JVD Lungs: CTAB Cardiovascular: RRR, Normal S1, Normal S2, without murmur Abdomen: soft, non-tender, non-distended Extremities: clear Neurological: no change Internal Medicine Assmt/Plan - Assessment Assessment: 1.DM. 2.HTN. 3.CVA. 4.CAD. 5.HYPERLIPIDEMIA. 6.DEMENTIA. - Plan Plan: CONTINUE ON CURRENT MEDICATION AND DIET.sliding scale with regular insulin coverege ac and sh. Nutritional Asmnt/Malnutr-PDOC - Dietary Evaluation Malnutrition Findings (Please click <Entered> for more info): Nutritional Asmnt/Malnutrition Start: 12/12/17 09: 52 Text: Status: Complete Freq: Protocol: Document 12/12/17 09:52 KARELY (Rec: 12/12/17 10:04 KARELY GONZALEZ- [email or web address]) Nutritional Asmnt/Malnutrition Patient General Information Nutritional Screening High Risk Consult Diagnosis Psychosis, cardiac disease Pertinent Medical Hx/Surgical Hx insulin-dependent diabetes, hypertension, CVA with left- sided weakness, coronary artery disease, hyperlipidemia , depression Subjective Information Consult received for cardiac diet. patient was admitted with BG 639. Patient in room at time of RD visit. Tolerating current diet order with adequate intake. Current Diet Order/ Nutrition Support Cardiac diet Patient / S.O Not Indicated Pertinent Medications maalox, lipitor, colace, novolog, levemir, MOM, Theragran Pertinent Labs Glucose 47-639, HGA1C 9.4, albumin 3.6 Nutritional Hx/Data Height 1.5 m Height (Calculated Centimeters) 149.9 Current Weight (lbs) 68.039 kg Weight (Calculated Kilograms) 68.0 Weight (Calculated Grams) 36219.9 [place] Body Weight 97.5 % [place] Body Weight 153 Body Mass Index (BMI) 30.2 Recent Weight Change No Weight Status Obese GI Symptoms GI Symptoms None Last BM none noted in EMR Difficult in: None Food Allergies No Cultural/Ethnic/Jew Belief none indicated Usual diet at home unknown Skin Integrity/Comment: Roberto 17, No symptoms, abdomen soft, non-tender, round Current %PO Good (75-100%) Estimated Nutritional Goals BEE in Kcals: Adj wt of IBW Calories/Kcals/Kg 25-30 kcal/kg (using Adj wt 50 .2kg ) Kcals Calculated 8101-8045 kcal/day Protein: Adj wt of IBW Protein g/k-1.2 gm/kg Protein Calculated 50-60gm/day Fluid: ml 2829-2122 ml/day Nutritional Problem 1. Problem Problem Altered nutrition related lab values Etiology related to uncontrolled blood sugar aeb Signs/Symptoms: Glucose 47-639, HGA1C 9.4 Intervention/Recommendation Comments 1. Consider modifying diet to 45gm CCHO, cardiac diet. 2. MD to continue to modify insulin regimen for optimal glycemic control. Expected Outcomes/Goals Expected Outcomes/Goals Oral intake >75% of meals, weight stable or trend toward ideal body weight, nutrition related labs normalize
[2017-12-15] MEDS: Insulin Detemir 100 units/mL 10mL Vial SUBQ SCH (21:37)
[2017-12-16] MEDS: INSULIN ASPART SLIDING SCALE 100 UNITS/ML UNIT SUBQ SCH ×4 (06:46→20:38)
[2017-12-16 08:55] LABS: CHOLESTEROL 155 mg/dL (<200); HDL -HIGH DENSITY LIPOPROTEIN 46 mg/dL (23-92); TRIGLYCERIDES 148 mg/dL (<150)
[2017-12-16] MEDS: Aspirin 81mg Chewable Tab PO SCH (08:58)
[2017-12-16] MEDS: Multivitamin w/ Minerals Tab PO SCH (09:00)
[2017-12-16] MEDS ORDERED: Maalox 30 mL Cup PO PRN (10:51)
--- NOTE | 2017-12-16 15:41 | Progress Notes ---
DATE: 12/16/2017 SUBJECTIVE: The patient with ongoing behavior, is confused, believes that she lives "in the [place]," less agitation, less aggressive behavior, seems to be calmer, better med compliance, better treatment compliance, remains down, depressed, mostly stays to herself. ASSESSMENT: The patient is confused, disoriented, withdrawn. She does remain impulsive, unpredictable, but is with better medication compliance and better treatment compliance. [facility]# [id number]
--- NOTE | 2017-12-16 20:38 | Internal Medicine Prog Note ---
Internal Medicine Subjective - Subjective Service Date: 12/16/17 Patient seen and examined:: without staff Patient is:: awake, verbal, arousable, in bed, talking, confused Per staff patient has:: no adverse event Internal Medicine Objective - Results Result Diagrams: 12/10/17 15:35 12/12/17 06:18 Recent Labs: Laboratory Last Values WBC 5.2 Th/cmm (4.8-10.8) 12/10/17 15:35 RBC 4.56 Mil/cmm (3.80-5.10) 12/10/17 15:35 Hgb 14.2 gm/dL (12-16) 12/10/17 15:35 Hct 42.4 % (41.0-60) 12/10/17 15:35 MCV 93.2 fl (81-100) 12/10/17 15:35 MCH 31.2 pg (27.0-31.0) H 12/10/17 15:35 MCHC Differential 33.5 pg (28.0-36.0) 12/10/17 15:35 RDW 12.5 % (11.5-20.0) 12/10/17 15:35 Plt Count 214 Th/cmm (150-400) 12/10/17 15:35 MPV 10.7 fl 12/10/17 15:35 Neutrophils % 66.2 % (40.0-80.0) 12/10/17 15:35 Lymphocytes % 27.0 % (20.0-50.0) 12/10/17 15:35 Monocytes % 4.4 % (2.0-10.0) 12/10/17 15:35 Eosinophils % 1.4 % (0.0-5.0) 12/10/17 15:35 Basophils % 1.0 % (0.0-2.0) 12/10/17 15:35 PT 10.2 SECONDS (9.5-11.5) 12/10/17 15:35 INR 0.98 (0.5-1.4) 12/10/17 15:35 PTT (Actin FS) 19.6 SECONDS (26.0-38.0) L 12/10/17 15:35 Sodium 140 mEq/L (136-145) 12/12/17 06:18 Potassium 3.6 mEq/L (3.5-5.1) 12/12/17 06:18 Chloride 106 mEq/L (98-107) 12/12/17 06:18 Carbon Dioxide 28.3 mEq/L (21.0-31.0) 12/12/17 06:18 Anion Gap 9.3 (7.0-16.0) 12/12/17 06:18 BUN 19 mg/dL (7-25) 12/12/17 06:18 Creatinine 0.5 mg/dL (0.6-1.2) L 12/12/17 06:18 Est GFR ( Amer) > 60.0 ml/min (>90) 12/12/17 06:18 Est GFR (Non-Af Amer) > 60.0 ml/min 12/12/17 06:18 BUN/Creatinine Ratio 38.0 12/12/17 06:18 Glucose 628 mg/dL (70-105) H* 12/13/17 22:10 POC Glucose 329 MG/DL (70 - 105) H 12/16/17 11:19 Hemoglobin A1c % 9.4 % (4.0-6.0) H 12/10/17 15:35 Calcium 9.3 mg/dL (8.6-10.3) 12/12/17 06:18 Total Bilirubin 0.3 mg/dL (0.3-1.0) 12/10/17 15:35 AST 29 U/L (13-39) 12/10/17 15:35 ALT 29 U/L (7-52) 12/10/17 15:35 Alkaline Phosphatase 120 U/L (34-104) H 12/10/17 15:35 Troponin I 0.01 ng/mL (0.01-0.05) 12/10/17 15:35 Total Protein 6.3 gm/dL (6.0-8.3) 12/10/17 15:35 Albumin 3.6 gm/dL (3.7-5.3) L 12/10/17 15:35 Globulin 2.7 gm/dL 12/10/17 15:35 Albumin/Globulin Ratio 1.3 (1.0-1.8) 12/10/17 15:35 Triglycerides 148 mg/dL (<150) 12/16/17 07:38 Cholesterol 155 mg/dL (<200) 12/16/17 07:38 LDL Cholesterol Direct 91 mg/dL (75-193) 12/16/17 07:38 HDL Cholesterol 46 mg/dL (23-92) 12/16/17 07:38 TSH 1.11 uIU/ml (0.34-5.60) 12/10/17 15:35 Urine Source CLEAN C 12/10/17 17:55 Urine Color YELLOW 12/10/17 17:55 Urine Clarity CLOUDY (CLEAR) H 12/10/17 17:55 Urine pH 6.0 (4.6 - 8.0) 12/10/17 17:55 Ur Specific [place] <= 1.005 (1.005-1.030) 12/10/17 17:55 Urine Protein NEGATIVE mg/dL (NEGATIVE) 12/10/17 17:55 Urine Glucose (UA) >=1000 mg/dL (NEGATIVE) H 12/10/17 17:55 Urine Ketones TRACE mg/dL (NEGATIVE) 12/10/17 17:55 Urine Blood LARGE (NEGATIVE) H 12/10/17 17:55 Urine Nitrate NEGATIVE (NEGATIVE) 12/10/17 17:55 Urine Bilirubin NEGATIVE (NEGATIVE) 12/10/17 17:55 Urine Urobilinogen 0.2 E.U./dL (0.2 - 1.0) 12/10/17 17:55 Ur Leukocyte Esterase TRACE (NEGATIVE) H 12/10/17 17:55 Urine RBC 5-10 /hpf (0-5) H 12/10/17 17:55 Urine WBC 2-5 /hpf (0-5) 12/10/17 17:55 Ur Epithelial Cells OCCASIONAL /lpf (FEW) 12/10/17 17:55 Amorphous Sediment MODERATE URATES (NONE SEEN) 12/10/17 17:55 Urine Bacteria FEW /hpf (NONE SEEN) 12/10/17 17:55 RPR NONREACTIVE (NONREACTIVE) 12/10/17 15:35 - Physical Exam Vitals and I&O: Vital Signs Temp 98 F 12/16/17 07:04 Pulse 96 12/16/17 17:16 Resp 18 12/16/17 07:04 BP 127/73 12/16/17 17:16 Pulse Ox 97 12/16/17 07:04 Intake & Output 12/16/17 12/16/17 12/17/17 06:59 18:59 06:59 Intake Total 240 1440 Balance 240 1440 Intake: Oral 240 1440 Other: # Voids 1 1 # Bowel Movements 1 Active Medications: Current Medications Acetaminophen (Tylenol) 650 mg PO Q4HR PRN PRN Reason: Mild Pain / Temp above 100 Stop: 02/08/18 19:18 Al Hydrox/Mg Hydrox/Simethicone (Maalox) 30 ml PO Q4HR PRN PRN Reason: GI DISTRESS Stop: 02/14/18 10:50 Atorvastatin Calcium (Lipitor) 40 mg PO HS [facility]; Protocol Stop: 02/08/18 20:59 Last Admin: 12/15/17 21:11 Dose: 40 mg Clopidogrel Bisulfate (Plavix) 75 mg PO DAILY [facility] Stop: 02/09/18 08:59 Last Admin: 12/16/17 08:59 Dose: 75 mg Docusate Sodium (Colace) 100 mg PO DAILY [facility] Stop: 02/09/18 08:59 Last Admin: 12/16/17 08:59 Dose: 100 mg Insulin Aspart (Novolog Insulin Sliding Scale) 0 units SUBQ ACHS [facility]; Protocol Stop: 02/12/18 20:59 Last Admin: 12/16/17 16:29 Dose: 7 units Insulin Detemir (Levemir Insulin) 30 units SUBQ HS [facility] Stop: 02/09/18 20:59 Last Admin: 12/15/17 21:37 Dose: 30 units Lorazepam (Ativan) 0.5 mg PO Q4HR PRN; Protocol PRN Reason: Anxiety Stop: 01/09/18 19:18 Last Admin: 12/13/17 14:20 Dose: 0.5 mg Magnesium Hydroxide (Milk Of Magnesia) 30 ml PO HS PRN PRN Reason: Constipation Metoprolol Tartrate (Lopressor) 25 mg PO BID [facility] Stop: 02/09/18 08:59 Last Admin: 12/16/17 17:16 Dose: 25 mg Nitroglycerin (Nitrostat) 0.4 mg SL Q5MIN PRN PRN Reason: Chest Pain Stop: 02/08/18 18:09 Quetiapine Fumarate (Seroquel) 25 mg PO BID [facility]; Protocol Stop: 02/11/18 16:59 Last Admin: 12/16/17 08:59 Dose: 25 mg Zolpidem Tartrate (Ambien) 5 mg PO HS PRN PRN Reason: Insomnia Stop: 02/08/18 19:18 Last Admin: 12/15/17 21:11 Dose: 5 mg General: demented HEENT: NC/AT, PERRLA, EOMI, anicteric sclerae, throat clear Neck: No thyromegaly, +2 carotid pulse wo bruit, + JVD Lungs: CTAB Cardiovascular: RRR, Normal S1, Normal S2, without murmur Abdomen: soft, non-tender, non-distended Extremities: clear Neurological: no change Internal Medicine Assmt/Plan - Assessment Assessment: 1.DM. 2.HTN. 3.CVA. 4.CAD. 5.HYPERLIPIDEMIA. 6.DEMENTIA. - Plan Plan: CONTINUE ON CURRENT MEDICATION AND DIET.sliding scale with regular insulin coverege ac and sh. Nutritional Asmnt/Malnutr-PDOC - Dietary Evaluation Malnutrition Findings (Please click <Entered> for more info): Nutritional Asmnt/Malnutrition Start: 12/12/17 09: 52 Text: Status: Complete Freq: Protocol: Document 12/12/17 09:52 KARELY (Rec: 12/12/17 10:04 MMOPAL GONZALEZ- FNS1) Nutritional Asmnt/Malnutrition Patient General Information Nutritional Screening High Risk Consult Diagnosis Psychosis, cardiac disease Pertinent Medical Hx/Surgical Hx insulin-dependent diabetes, hypertension, CVA with left- sided weakness, coronary artery disease, hyperlipidemia , depression Subjective Information Consult received for cardiac diet. patient was admitted with BG 639. Patient in room at time of RD visit. Tolerating current diet order with adequate intake. Current Diet Order/ Nutrition Support Cardiac diet Patient / S.O Not Indicated Pertinent Medications maalox, lipitor, colace, novolog, levemir, MOM, Theragran Pertinent Labs Glucose 47-639, HGA1C 9.4, albumin 3.6 Nutritional Hx/Data Height 1.5 m Height (Calculated Centimeters) 149.9 Current Weight (lbs) 68.039 kg Weight (Calculated Kilograms) 68.0 Weight (Calculated Grams) 94954.9 [place] Body Weight 97.5 % [place] Body Weight 153 Body Mass Index (BMI) 30.2 Recent Weight Change No Weight Status Obese GI Symptoms GI Symptoms None Last BM none noted in EMR Difficult in: None Food Allergies No Cultural/Ethnic/Spiritism Belief none indicated Usual diet at home unknown Skin Integrity/Comment: Roberto 17, No symptoms, abdomen soft, non-tender, round Current %PO Good (75-100%) Estimated Nutritional Goals BEE in Kcals: Adj wt of IBW Calories/Kcals/Kg 25-30 kcal/kg (using Adj wt 50 .2kg ) Kcals Calculated 8977-8249 kcal/day Protein: Adj wt of IBW Protein g/k-1.2 gm/kg Protein Calculated 50-60gm/day Fluid: ml 7761-2954 ml/day Nutritional Problem 1. Problem Problem Altered nutrition related lab values Etiology related to uncontrolled blood sugar aeb Signs/Symptoms: Glucose 47-639, HGA1C 9.4 Intervention/Recommendation Comments 1. Consider modifying diet to 45gm CCHO, cardiac diet. 2. MD to continue to modify insulin regimen for optimal glycemic control. Expected Outcomes/Goals Expected Outcomes/Goals Oral intake >75% of meals, weight stable or trend toward ideal body weight, nutrition related labs normalize
[2017-12-16] MEDS: Insulin Detemir 100 units/mL 10mL Vial SUBQ SCH (20:41)
[2017-12-17] MEDS: INSULIN ASPART SLIDING SCALE 100 UNITS/ML UNIT SUBQ SCH ×4 (06:29→20:27)
[2017-12-17] MEDS: Multivitamin w/ Minerals Tab PO SCH (08:42)
--- NOTE | 2017-12-17 17:03 | Internal Medicine Prog Note ---
Internal Medicine Subjective - Subjective Service Date: 12/17/17 Patient seen and examined:: with staff Patient is:: awake, verbal, arousable, in bed, talking, confused Per staff patient has:: no adverse event Internal Medicine Objective - Results Result Diagrams: 12/10/17 15:35 12/12/17 06:18 Recent Labs: Laboratory Last Values WBC 5.2 Th/cmm (4.8-10.8) 12/10/17 15:35 RBC 4.56 Mil/cmm (3.80-5.10) 12/10/17 15:35 Hgb 14.2 gm/dL (12-16) 12/10/17 15:35 Hct 42.4 % (41.0-60) 12/10/17 15:35 MCV 93.2 fl (81-100) 12/10/17 15:35 MCH 31.2 pg (27.0-31.0) H 12/10/17 15:35 MCHC Differential 33.5 pg (28.0-36.0) 12/10/17 15:35 RDW 12.5 % (11.5-20.0) 12/10/17 15:35 Plt Count 214 Th/cmm (150-400) 12/10/17 15:35 MPV 10.7 fl 12/10/17 15:35 Neutrophils % 66.2 % (40.0-80.0) 12/10/17 15:35 Lymphocytes % 27.0 % (20.0-50.0) 12/10/17 15:35 Monocytes % 4.4 % (2.0-10.0) 12/10/17 15:35 Eosinophils % 1.4 % (0.0-5.0) 12/10/17 15:35 Basophils % 1.0 % (0.0-2.0) 12/10/17 15:35 PT 10.2 SECONDS (9.5-11.5) 12/10/17 15:35 INR 0.98 (0.5-1.4) 12/10/17 15:35 PTT (Actin FS) 19.6 SECONDS (26.0-38.0) L 12/10/17 15:35 Sodium 140 mEq/L (136-145) 12/12/17 06:18 Potassium 3.6 mEq/L (3.5-5.1) 12/12/17 06:18 Chloride 106 mEq/L (98-107) 12/12/17 06:18 Carbon Dioxide 28.3 mEq/L (21.0-31.0) 12/12/17 06:18 Anion Gap 9.3 (7.0-16.0) 12/12/17 06:18 BUN 19 mg/dL (7-25) 12/12/17 06:18 Creatinine 0.5 mg/dL (0.6-1.2) L 12/12/17 06:18 Est GFR ( Amer) > 60.0 ml/min (>90) 12/12/17 06:18 Est GFR (Non-Af Amer) > 60.0 ml/min 12/12/17 06:18 BUN/Creatinine Ratio 38.0 12/12/17 06:18 Glucose 628 mg/dL (70-105) H* 12/13/17 22:10 POC Glucose 85 MG/DL (70 - 105) 12/17/17 06:27 Hemoglobin A1c % 9.4 % (4.0-6.0) H 12/10/17 15:35 Calcium 9.3 mg/dL (8.6-10.3) 12/12/17 06:18 Total Bilirubin 0.3 mg/dL (0.3-1.0) 12/10/17 15:35 AST 29 U/L (13-39) 12/10/17 15:35 ALT 29 U/L (7-52) 12/10/17 15:35 Alkaline Phosphatase 120 U/L (34-104) H 12/10/17 15:35 Troponin I 0.01 ng/mL (0.01-0.05) 12/10/17 15:35 Total Protein 6.3 gm/dL (6.0-8.3) 12/10/17 15:35 Albumin 3.6 gm/dL (3.7-5.3) L 12/10/17 15:35 Globulin 2.7 gm/dL 12/10/17 15:35 Albumin/Globulin Ratio 1.3 (1.0-1.8) 12/10/17 15:35 Triglycerides 148 mg/dL (<150) 12/16/17 07:38 Cholesterol 155 mg/dL (<200) 12/16/17 07:38 LDL Cholesterol Direct 91 mg/dL (75-193) 12/16/17 07:38 HDL Cholesterol 46 mg/dL (23-92) 12/16/17 07:38 TSH 1.11 uIU/ml (0.34-5.60) 12/10/17 15:35 Urine Source CLEAN C 12/10/17 17:55 Urine Color YELLOW 12/10/17 17:55 Urine Clarity CLOUDY (CLEAR) H 12/10/17 17:55 Urine pH 6.0 (4.6 - 8.0) 12/10/17 17:55 Ur Specific [place] <= 1.005 (1.005-1.030) 12/10/17 17:55 Urine Protein NEGATIVE mg/dL (NEGATIVE) 12/10/17 17:55 Urine Glucose (UA) >=1000 mg/dL (NEGATIVE) H 12/10/17 17:55 Urine Ketones TRACE mg/dL (NEGATIVE) 12/10/17 17:55 Urine Blood LARGE (NEGATIVE) H 12/10/17 17:55 Urine Nitrate NEGATIVE (NEGATIVE) 12/10/17 17:55 Urine Bilirubin NEGATIVE (NEGATIVE) 12/10/17 17:55 Urine Urobilinogen 0.2 E.U./dL (0.2 - 1.0) 12/10/17 17:55 Ur Leukocyte Esterase TRACE (NEGATIVE) H 12/10/17 17:55 Urine RBC 5-10 /hpf (0-5) H 12/10/17 17:55 Urine WBC 2-5 /hpf (0-5) 12/10/17 17:55 Ur Epithelial Cells OCCASIONAL /lpf (FEW) 12/10/17 17:55 Amorphous Sediment MODERATE URATES (NONE SEEN) 12/10/17 17:55 Urine Bacteria FEW /hpf (NONE SEEN) 12/10/17 17:55 RPR NONREACTIVE (NONREACTIVE) 12/10/17 15:35 - Physical Exam Vitals and I&O: Vital Signs Temp 98.8 F 12/17/17 14:00 Pulse 87 12/17/17 16:50 Resp 18 12/17/17 14:00 BP 106/46 12/17/17 16:50 Pulse Ox 99 12/17/17 14:00 Intake & Output 12/16/17 12/17/17 12/17/17 18:59 06:59 18:59 Intake Total 1440 Balance 1440 Intake: Oral 1440 Other: # Voids 1 3 # Bowel Movements 1 0 Active Medications: Current Medications Acetaminophen (Tylenol) 650 mg PO Q4HR PRN PRN Reason: Mild Pain / Temp above 100 Stop: 02/08/18 19:18 Acetaminophen (Tylenol) mg PO Q6HRT PRN PRN Reason: Pain (Mild) Stop: 02/15/18 16:55 Al Hydrox/Mg Hydrox/Simethicone (Maalox) 30 ml PO Q4HR PRN PRN Reason: GI DISTRESS Stop: 02/14/18 10:50 Atorvastatin Calcium (Lipitor) 40 mg PO HS [facility]; Protocol Stop: 02/08/18 20:59 Last Admin: 12/16/17 20:37 Dose: 40 mg Clopidogrel Bisulfate (Plavix) 75 mg PO DAILY [facility] Stop: 02/09/18 08:59 Last Admin: 12/17/17 08:34 Dose: 75 mg Docusate Sodium (Colace) 100 mg PO DAILY [facility] Stop: 02/09/18 08:59 Last Admin: 12/17/17 08:34 Dose: 100 mg Insulin Aspart (Novolog Insulin Sliding Scale) 0 units SUBQ ACHS [facility]; Protocol Stop: 02/12/18 20:59 Last Admin: 12/17/17 16:36 Dose: 5 units Insulin Detemir (Levemir Insulin) 30 units SUBQ HS [facility] Stop: 02/09/18 20:59 Last Admin: 12/16/17 20:41 Dose: 30 units Lorazepam (Ativan) 0.5 mg PO Q4HR PRN; Protocol PRN Reason: Anxiety Stop: 01/09/18 19:18 Last Admin: 12/17/17 08:33 Dose: 0.5 mg Magnesium Hydroxide (Milk Of Magnesia) 30 ml PO HS PRN PRN Reason: Constipation Metoprolol Tartrate (Lopressor) 25 mg PO BID [facility] Stop: 02/09/18 08:59 Last Admin: 12/17/17 16:50 Dose: 25 mg Nitroglycerin (Nitrostat) 0.4 mg SL Q5MIN PRN PRN Reason: Chest Pain Stop: 02/08/18 18:09 Quetiapine Fumarate (Seroquel) 25 mg PO BID [facility]; Protocol Stop: 02/11/18 16:59 Last Admin: 12/17/17 16:51 Dose: 25 mg Zolpidem Tartrate (Ambien) 5 mg PO HS PRN PRN Reason: Insomnia Stop: 02/08/18 19:18 Last Admin: 12/15/17 21:11 Dose: 5 mg General: demented HEENT: NC/AT, PERRLA, EOMI, anicteric sclerae, throat clear Neck: No thyromegaly, +2 carotid pulse wo bruit, + JVD Lungs: CTAB Cardiovascular: RRR, Normal S1, Normal S2, without murmur Abdomen: soft, non-tender, non-distended Extremities: clear Neurological: no change Internal Medicine Assmt/Plan - Assessment Assessment: 1.DM. 2.HTN. 3.CVA. 4.CAD. 5.HYPERLIPIDEMIA. 6.DEMENTIA. - Plan Plan: CONTINUE ON CURRENT MEDICATION AND DIET. Nutritional Asmnt/Malnutr-PDOC - Dietary Evaluation Malnutrition Findings (Please click <Entered> for more info): Nutritional Asmnt/Malnutrition Start: 12/12/17 09: 52 Text: Status: Complete Freq: Protocol: Document 12/12/17 09:52 MMOPAL (Rec: 12/12/17 10:04 MMULITERA GONZALEZ- FNS1) Nutritional Asmnt/Malnutrition Patient General Information Nutritional Screening High Risk Consult Diagnosis Psychosis, cardiac disease Pertinent Medical Hx/Surgical Hx insulin-dependent diabetes, hypertension, CVA with left- sided weakness, coronary artery disease, hyperlipidemia , depression Subjective Information Consult received for cardiac diet. patient was admitted with BG 639. Patient in room at time of RD visit. Tolerating current diet order with adequate intake. Current Diet Order/ Nutrition Support Cardiac diet Patient / S.O Not Indicated Pertinent Medications maalox, lipitor, colace, novolog, levemir, MOM, Theragran Pertinent Labs Glucose 47-639, HGA1C 9.4, albumin 3.6 Nutritional Hx/Data Height 1.5 m Height (Calculated Centimeters) 149.9 Current Weight (lbs) 68.039 kg Weight (Calculated Kilograms) 68.0 Weight (Calculated Grams) 93410.9 [place] Body Weight 97.5 % [place] Body Weight 153 Body Mass Index (BMI) 30.2 Recent Weight Change No Weight Status Obese GI Symptoms GI Symptoms None Last BM none noted in EMR Difficult in: None Food Allergies No Cultural/Ethnic/[place] Belief none indicated Usual diet at home unknown Skin Integrity/Comment: Roberto 17, No symptoms, abdomen soft, non-tender, round Current %PO Good (75-100%) Estimated Nutritional Goals BEE in Kcals: Adj wt of IBW Calories/Kcals/Kg 25-30 kcal/kg (using Adj wt 50 .2kg ) Kcals Calculated 2048-4583 kcal/day Protein: Adj wt of IBW Protein g/k-1.2 gm/kg Protein Calculated 50-60gm/day Fluid: ml 5812-8149 ml/day Nutritional Problem 1. Problem Problem Altered nutrition related lab values Etiology related to uncontrolled blood sugar aeb Signs/Symptoms: Glucose 47-639, HGA1C 9.4 Intervention/Recommendation Comments 1. Consider modifying diet to 45gm CCHO, cardiac diet. 2. MD to continue to modify insulin regimen for optimal glycemic control. Expected Outcomes/Goals Expected Outcomes/Goals Oral intake >75% of meals, weight stable or trend toward ideal body weight, nutrition related labs normalize
[2017-12-17] MEDS: Insulin Detemir 100 units/mL 10mL Vial SUBQ SCH (20:26)
[2017-12-18] MEDS: INSULIN ASPART SLIDING SCALE 100 UNITS/ML UNIT SUBQ SCH ×4 (06:31→20:12)
[2017-12-18] MEDS: Multivitamin w/ Minerals Tab PO SCH (08:29)
--- NOTE | 2017-12-18 09:41 | Progress Notes ---
DATE: 12/17/2017 The patient was seen and evaluated. The patient's chart reviewed. Today on [id number] evaluation, the patient reported becoming sad, depressed and distraught. She is tolerating medications well. At this point, ____ depressed and distressed, although seems to be compliant with medications. CURRENT MEDICATIONS: Include Coreg, insulin, Ativan as needed, metoprolol and Seroquel 25 mg b.i.d. ASSESSMENT AND PLAN: This is a 62-year-old female who started to show mild improvement in her mood. We will continue with the current medication regimen as she continues to be slightly withdrawn and disengaged, although some mild improvement is noted. [facility]# [id number]
--- NOTE | 2017-12-18 13:38 | Internal Medicine Prog Note ---
Internal Medicine Subjective - Subjective Service Date: 12/18/17 Patient seen and examined:: without staff Patient is:: awake, verbal, arousable, in bed, talking, confused Per staff patient has:: no adverse event Internal Medicine Objective - Results Result Diagrams: 12/10/17 15:35 12/12/17 06:18 Recent Labs: Laboratory Last Values WBC 5.2 Th/cmm (4.8-10.8) 12/10/17 15:35 RBC 4.56 Mil/cmm (3.80-5.10) 12/10/17 15:35 Hgb 14.2 gm/dL (12-16) 12/10/17 15:35 Hct 42.4 % (41.0-60) 12/10/17 15:35 MCV 93.2 fl (81-100) 12/10/17 15:35 MCH 31.2 pg (27.0-31.0) H 12/10/17 15:35 MCHC Differential 33.5 pg (28.0-36.0) 12/10/17 15:35 RDW 12.5 % (11.5-20.0) 12/10/17 15:35 Plt Count 214 Th/cmm (150-400) 12/10/17 15:35 MPV 10.7 fl 12/10/17 15:35 Neutrophils % 66.2 % (40.0-80.0) 12/10/17 15:35 Lymphocytes % 27.0 % (20.0-50.0) 12/10/17 15:35 Monocytes % 4.4 % (2.0-10.0) 12/10/17 15:35 Eosinophils % 1.4 % (0.0-5.0) 12/10/17 15:35 Basophils % 1.0 % (0.0-2.0) 12/10/17 15:35 PT 10.2 SECONDS (9.5-11.5) 12/10/17 15:35 INR 0.98 (0.5-1.4) 12/10/17 15:35 PTT (Actin FS) 19.6 SECONDS (26.0-38.0) L 12/10/17 15:35 Sodium 140 mEq/L (136-145) 12/12/17 06:18 Potassium 3.6 mEq/L (3.5-5.1) 12/12/17 06:18 Chloride 106 mEq/L (98-107) 12/12/17 06:18 Carbon Dioxide 28.3 mEq/L (21.0-31.0) 12/12/17 06:18 Anion Gap 9.3 (7.0-16.0) 12/12/17 06:18 BUN 19 mg/dL (7-25) 12/12/17 06:18 Creatinine 0.5 mg/dL (0.6-1.2) L 12/12/17 06:18 Est GFR ( Amer) > 60.0 ml/min (>90) 12/12/17 06:18 Est GFR (Non-Af Amer) > 60.0 ml/min 12/12/17 06:18 BUN/Creatinine Ratio 38.0 12/12/17 06:18 Glucose 628 mg/dL (70-105) H* 12/13/17 22:10 POC Glucose 377 MG/DL (70 - 105) H 12/18/17 11:55 Hemoglobin A1c % 9.4 % (4.0-6.0) H 12/10/17 15:35 Calcium 9.3 mg/dL (8.6-10.3) 12/12/17 06:18 Total Bilirubin 0.3 mg/dL (0.3-1.0) 12/10/17 15:35 AST 29 U/L (13-39) 12/10/17 15:35 ALT 29 U/L (7-52) 12/10/17 15:35 Alkaline Phosphatase 120 U/L (34-104) H 12/10/17 15:35 Troponin I 0.01 ng/mL (0.01-0.05) 12/10/17 15:35 Total Protein 6.3 gm/dL (6.0-8.3) 12/10/17 15:35 Albumin 3.6 gm/dL (3.7-5.3) L 12/10/17 15:35 Globulin 2.7 gm/dL 12/10/17 15:35 Albumin/Globulin Ratio 1.3 (1.0-1.8) 12/10/17 15:35 Triglycerides 148 mg/dL (<150) 12/16/17 07:38 Cholesterol 155 mg/dL (<200) 12/16/17 07:38 LDL Cholesterol Direct 91 mg/dL (75-193) 12/16/17 07:38 HDL Cholesterol 46 mg/dL (23-92) 12/16/17 07:38 TSH 1.11 uIU/ml (0.34-5.60) 12/10/17 15:35 Urine Source CLEAN C 12/10/17 17:55 Urine Color YELLOW 12/10/17 17:55 Urine Clarity CLOUDY (CLEAR) H 12/10/17 17:55 Urine pH 6.0 (4.6 - 8.0) 12/10/17 17:55 Ur Specific [place] <= 1.005 (1.005-1.030) 12/10/17 17:55 Urine Protein NEGATIVE mg/dL (NEGATIVE) 12/10/17 17:55 Urine Glucose (UA) >=1000 mg/dL (NEGATIVE) H 12/10/17 17:55 Urine Ketones TRACE mg/dL (NEGATIVE) 12/10/17 17:55 Urine Blood LARGE (NEGATIVE) H 12/10/17 17:55 Urine Nitrate NEGATIVE (NEGATIVE) 12/10/17 17:55 Urine Bilirubin NEGATIVE (NEGATIVE) 12/10/17 17:55 Urine Urobilinogen 0.2 E.U./dL (0.2 - 1.0) 12/10/17 17:55 Ur Leukocyte Esterase TRACE (NEGATIVE) H 12/10/17 17:55 Urine RBC 5-10 /hpf (0-5) H 12/10/17 17:55 Urine WBC 2-5 /hpf (0-5) 12/10/17 17:55 Ur Epithelial Cells OCCASIONAL /lpf (FEW) 12/10/17 17:55 Amorphous Sediment MODERATE URATES (NONE SEEN) 12/10/17 17:55 Urine Bacteria FEW /hpf (NONE SEEN) 12/10/17 17:55 RPR NONREACTIVE (NONREACTIVE) 12/10/17 15:35 - Physical Exam Vitals and I&O: Vital Signs Temp 97.7 F 12/18/17 06:00 Pulse 69 12/18/17 06:00 Resp 18 12/18/17 06:00 BP 105/56 12/18/17 06:00 Pulse Ox 97 12/18/17 06:00 Intake & Output 12/17/17 12/18/17 12/18/17 18:59 06:59 18:59 Intake Total 1200 120 Balance 1200 120 Intake: Oral 1200 120 Other: # Voids 3 # Bowel Movements 1 Active Medications: Current Medications Acetaminophen (Tylenol) 650 mg PO Q4HR PRN PRN Reason: Mild Pain / Temp above 100 Stop: 02/08/18 19:18 Acetaminophen (Tylenol) mg PO Q6HRT PRN PRN Reason: Pain (Mild) Stop: 02/15/18 16:55 Al Hydrox/Mg Hydrox/Simethicone (Maalox) 30 ml PO Q4HR PRN PRN Reason: GI DISTRESS Stop: 02/14/18 10:50 Atorvastatin Calcium (Lipitor) 40 mg PO HS [facility]; Protocol Stop: 02/08/18 20:59 Last Admin: 12/17/17 20:10 Dose: 40 mg Clopidogrel Bisulfate (Plavix) 75 mg PO DAILY [facility] Stop: 02/09/18 08:59 Last Admin: 12/18/17 08:29 Dose: 75 mg Docusate Sodium (Colace) 100 mg PO DAILY [facility] Stop: 02/09/18 08:59 Last Admin: 12/18/17 08:29 Dose: 100 mg Insulin Aspart (Novolog Insulin Sliding Scale) 0 units SUBQ ACHS [facility]; Protocol Stop: 02/12/18 20:59 Last Admin: 12/18/17 12:09 Dose: 11 units Insulin Detemir (Levemir Insulin) 30 units SUBQ HS [facility] Stop: 02/09/18 20:59 Last Admin: 12/17/17 20:26 Dose: 30 units Lorazepam (Ativan) 0.5 mg PO Q4HR PRN; Protocol PRN Reason: Anxiety Stop: 01/09/18 19:18 Last Admin: 12/17/17 20:10 Dose: 0.5 mg Magnesium Hydroxide (Milk Of Magnesia) 30 ml PO HS PRN PRN Reason: Constipation Metoprolol Tartrate (Lopressor) 25 mg PO BID [facility] Stop: 02/09/18 08:59 Last Admin: 12/18/17 08:30 Dose: Not Given Nitroglycerin (Nitrostat) 0.4 mg SL Q5MIN PRN PRN Reason: Chest Pain Stop: 02/08/18 18:09 Quetiapine Fumarate (Seroquel) 25 mg PO BID [facility]; Protocol Stop: 02/11/18 16:59 Last Admin: 12/18/17 08:29 Dose: 25 mg Zolpidem Tartrate (Ambien) 5 mg PO HS PRN PRN Reason: Insomnia Stop: 02/08/18 19:18 Last Admin: 12/17/17 20:11 Dose: 5 mg General: demented HEENT: NC/AT, PERRLA, EOMI, anicteric sclerae, throat clear Neck: No thyromegaly, +2 carotid pulse wo bruit, + JVD Lungs: CTAB Cardiovascular: RRR, Normal S1, Normal S2, without murmur Abdomen: soft, non-tender, non-distended Extremities: clear Neurological: no change Internal Medicine Assmt/Plan - Assessment Assessment: 1.DM. 2.HTN. 3.CVA. 4.CAD. 5.HYPERLIPIDEMIA. 6.DEMENTIA. - Plan Plan: CONTINUE ON CURRENT MEDICATION AND DIET. Nutritional Asmnt/Malnutr-PDOC - Dietary Evaluation Malnutrition Findings (Please click <Entered> for more info): Nutritional Asmnt/Malnutrition Start: 12/12/17 09: 52 Text: Status: Complete Freq: Protocol: Document 12/12/17 09:52 KRAELY (Rec: 12/12/17 10:04 MMULTIERA GONZALEZ- FNS1) Nutritional Asmnt/Malnutrition Patient General Information Nutritional Screening High Risk Consult Diagnosis Psychosis, cardiac disease Pertinent Medical Hx/Surgical Hx insulin-dependent diabetes, hypertension, CVA with left- sided weakness, coronary artery disease, hyperlipidemia , depression Subjective Information Consult received for cardiac diet. patient was admitted with BG 639. Patient in room at time of RD visit. Tolerating current diet order with adequate intake. Current Diet Order/ Nutrition Support Cardiac diet Patient / S.O Not Indicated Pertinent Medications maalox, lipitor, colace, novolog, levemir, MOM, Theragran Pertinent Labs Glucose 47-639, HGA1C 9.4, albumin 3.6 Nutritional Hx/Data Height 1.5 m Height (Calculated Centimeters) 149.9 Current Weight (lbs) 68.039 kg Weight (Calculated Kilograms) 68.0 Weight (Calculated Grams) 58190.9 [place] Body Weight 97.5 % [place] Body Weight 153 Body Mass Index (BMI) 30.2 Recent Weight Change No Weight Status Obese GI Symptoms GI Symptoms None Last BM none noted in EMR Difficult in: None Food Allergies No Cultural/Ethnic/[place] Belief none indicated Usual diet at home unknown Skin Integrity/Comment: Roberto 17, No symptoms, abdomen soft, non-tender, round Current %PO Good (75-100%) Estimated Nutritional Goals BEE in Kcals: Adj wt of IBW Calories/Kcals/Kg 25-30 kcal/kg (using Adj wt 50 .2kg ) Kcals Calculated 6777-8265 kcal/day Protein: Adj wt of IBW Protein g/k-1.2 gm/kg Protein Calculated 50-60gm/day Fluid: ml 4355-5173 ml/day Nutritional Problem 1. Problem Problem Altered nutrition related lab values Etiology related to uncontrolled blood sugar aeb Signs/Symptoms: Glucose 47-639, HGA1C 9.4 Intervention/Recommendation Comments 1. Consider modifying diet to 45gm CCHO, cardiac diet. 2. MD to continue to modify insulin regimen for optimal glycemic control. Expected Outcomes/Goals Expected Outcomes/Goals Oral intake >75% of meals, weight stable or trend toward ideal body weight, nutrition related labs normalize
[2017-12-18] MEDS: Insulin Detemir 100 units/mL 10mL Vial SUBQ SCH (20:13)
--- NOTE | 2017-12-18 20:17 | Progress Notes ---
DATE: 12/18/2017 SUBJECTIVE: The patient was seen and evaluated. The patient's chart reviewed. Covering for Dr. Wen. Today on [id number] evaluation, the patient reports no side effects of the medication. She reports she has been little better with the medication. She reports that her mood is still down. MENTAL STATUS EXAMINATION: Still disoriented, withdrawn and disengaged. ASSESSMENT AND PLAN: We will continue with primary psychiatrist's treatment plan and goals to target the patient's less aggressive behavior that seems to be noticing some mild improvement secondary to the patient status post CVA and neurocognitive impairment. [facility]# [id number]
[2017-12-19] MEDS: INSULIN ASPART SLIDING SCALE 100 UNITS/ML UNIT SUBQ SCH ×4 (06:40→21:20)
[2017-12-19] MEDS: Multivitamin w/ Minerals Tab PO SCH (08:50)
--- NOTE | 2017-12-19 19:47 | Internal Medicine Prog Note ---
Internal Medicine Subjective - Subjective Service Date: 12/19/17 Patient seen and examined:: with staff Patient is:: awake, verbal, arousable, in bed, talking, confused Per staff patient has:: no adverse event Internal Medicine Objective - Results Result Diagrams: 12/10/17 15:35 12/12/17 06:18 Recent Labs: Laboratory Last Values WBC 5.2 Th/cmm (4.8-10.8) 12/10/17 15:35 RBC 4.56 Mil/cmm (3.80-5.10) 12/10/17 15:35 Hgb 14.2 gm/dL (12-16) 12/10/17 15:35 Hct 42.4 % (41.0-60) 12/10/17 15:35 MCV 93.2 fl (81-100) 12/10/17 15:35 MCH 31.2 pg (27.0-31.0) H 12/10/17 15:35 MCHC Differential 33.5 pg (28.0-36.0) 12/10/17 15:35 RDW 12.5 % (11.5-20.0) 12/10/17 15:35 Plt Count 214 Th/cmm (150-400) 12/10/17 15:35 MPV 10.7 fl 12/10/17 15:35 Neutrophils % 66.2 % (40.0-80.0) 12/10/17 15:35 Lymphocytes % 27.0 % (20.0-50.0) 12/10/17 15:35 Monocytes % 4.4 % (2.0-10.0) 12/10/17 15:35 Eosinophils % 1.4 % (0.0-5.0) 12/10/17 15:35 Basophils % 1.0 % (0.0-2.0) 12/10/17 15:35 PT 10.2 SECONDS (9.5-11.5) 12/10/17 15:35 INR 0.98 (0.5-1.4) 12/10/17 15:35 PTT (Actin FS) 19.6 SECONDS (26.0-38.0) L 12/10/17 15:35 Sodium 140 mEq/L (136-145) 12/12/17 06:18 Potassium 3.6 mEq/L (3.5-5.1) 12/12/17 06:18 Chloride 106 mEq/L (98-107) 12/12/17 06:18 Carbon Dioxide 28.3 mEq/L (21.0-31.0) 12/12/17 06:18 Anion Gap 9.3 (7.0-16.0) 12/12/17 06:18 BUN 19 mg/dL (7-25) 12/12/17 06:18 Creatinine 0.5 mg/dL (0.6-1.2) L 12/12/17 06:18 Est GFR ( Amer) > 60.0 ml/min (>90) 12/12/17 06:18 Est GFR (Non-Af Amer) > 60.0 ml/min 12/12/17 06:18 BUN/Creatinine Ratio 38.0 12/12/17 06:18 Glucose 628 mg/dL (70-105) H* 12/13/17 22:10 POC Glucose 221 MG/DL (70 - 105) H 12/19/17 16:59 Hemoglobin A1c % 9.4 % (4.0-6.0) H 12/10/17 15:35 Calcium 9.3 mg/dL (8.6-10.3) 12/12/17 06:18 Total Bilirubin 0.3 mg/dL (0.3-1.0) 12/10/17 15:35 AST 29 U/L (13-39) 12/10/17 15:35 ALT 29 U/L (7-52) 12/10/17 15:35 Alkaline Phosphatase 120 U/L (34-104) H 12/10/17 15:35 Troponin I 0.01 ng/mL (0.01-0.05) 12/10/17 15:35 Total Protein 6.3 gm/dL (6.0-8.3) 12/10/17 15:35 Albumin 3.6 gm/dL (3.7-5.3) L 12/10/17 15:35 Globulin 2.7 gm/dL 12/10/17 15:35 Albumin/Globulin Ratio 1.3 (1.0-1.8) 12/10/17 15:35 Triglycerides 148 mg/dL (<150) 12/16/17 07:38 Cholesterol 155 mg/dL (<200) 12/16/17 07:38 LDL Cholesterol Direct 91 mg/dL (75-193) 12/16/17 07:38 HDL Cholesterol 46 mg/dL (23-92) 12/16/17 07:38 TSH 1.11 uIU/ml (0.34-5.60) 12/10/17 15:35 Urine Source CLEAN C 12/10/17 17:55 Urine Color YELLOW 12/10/17 17:55 Urine Clarity CLOUDY (CLEAR) H 12/10/17 17:55 Urine pH 6.0 (4.6 - 8.0) 12/10/17 17:55 Ur Specific [place] <= 1.005 (1.005-1.030) 12/10/17 17:55 Urine Protein NEGATIVE mg/dL (NEGATIVE) 12/10/17 17:55 Urine Glucose (UA) >=1000 mg/dL (NEGATIVE) H 12/10/17 17:55 Urine Ketones TRACE mg/dL (NEGATIVE) 12/10/17 17:55 Urine Blood LARGE (NEGATIVE) H 12/10/17 17:55 Urine Nitrate NEGATIVE (NEGATIVE) 12/10/17 17:55 Urine Bilirubin NEGATIVE (NEGATIVE) 12/10/17 17:55 Urine Urobilinogen 0.2 E.U./dL (0.2 - 1.0) 12/10/17 17:55 Ur Leukocyte Esterase TRACE (NEGATIVE) H 12/10/17 17:55 Urine RBC 5-10 /hpf (0-5) H 12/10/17 17:55 Urine WBC 2-5 /hpf (0-5) 12/10/17 17:55 Ur Epithelial Cells OCCASIONAL /lpf (FEW) 12/10/17 17:55 Amorphous Sediment MODERATE URATES (NONE SEEN) 12/10/17 17:55 Urine Bacteria FEW /hpf (NONE SEEN) 12/10/17 17:55 RPR NONREACTIVE (NONREACTIVE) 12/10/17 15:35 - Physical Exam Vitals and I&O: Vital Signs Temp 98.0 F 12/19/17 14:00 Pulse 89 12/19/17 14:00 Resp 20 12/19/17 14:00 BP 112/58 12/19/17 14:00 Pulse Ox 97 12/19/17 14:00 Intake & Output 12/19/17 12/19/17 12/20/17 06:59 18:59 06:59 Intake Total 240 900 Balance 240 900 Intake: Oral 240 900 Other: # Voids 1 3 # Bowel Movements 1 1 Active Medications: Current Medications Acetaminophen (Tylenol) 650 mg PO Q4HR PRN PRN Reason: Mild Pain / Temp above 100 Stop: 02/08/18 19:18 Last Admin: 12/19/17 09:35 Dose: 650 mg Al Hydrox/Mg Hydrox/Simethicone (Maalox) 30 ml PO Q4HR PRN PRN Reason: GI DISTRESS Stop: 02/14/18 10:50 Atorvastatin Calcium (Lipitor) 40 mg PO HS [facility]; Protocol Stop: 02/08/18 20:59 Last Admin: 12/18/17 20:07 Dose: 40 mg Clopidogrel Bisulfate (Plavix) 75 mg PO DAILY [facility] Stop: 02/09/18 08:59 Last Admin: 12/19/17 08:50 Dose: 75 mg Docusate Sodium (Colace) 100 mg PO DAILY [facility] Stop: 02/09/18 08:59 Last Admin: 12/19/17 08:50 Dose: 100 mg Insulin Aspart (Novolog Insulin Sliding Scale) 0 units SUBQ ACHS [facility]; Protocol Stop: 02/12/18 20:59 Last Admin: 12/19/17 17:02 Dose: 5 units Insulin Detemir (Levemir Insulin) 30 units SUBQ HS [facility] Stop: 02/09/18 20:59 Last Admin: 12/18/17 20:13 Dose: 30 units Lorazepam (Ativan) 0.5 mg PO Q4HR PRN; Protocol PRN Reason: Anxiety Stop: 01/09/18 19:18 Last Admin: 12/17/17 20:10 Dose: 0.5 mg Magnesium Hydroxide (Milk Of Magnesia) 30 ml PO HS PRN PRN Reason: Constipation Metoprolol Tartrate (Lopressor) 25 mg PO BID [facility] Stop: 02/09/18 08:59 Last Admin: 12/19/17 16:34 Dose: Not Given Nitroglycerin (Nitrostat) 0.4 mg SL Q5MIN PRN PRN Reason: Chest Pain Stop: 02/08/18 18:09 Quetiapine Fumarate (Seroquel) 25 mg PO BID [facility]; Protocol Stop: 02/11/18 16:59 Last Admin: 12/19/17 16:34 Dose: 25 mg Zolpidem Tartrate (Ambien) 5 mg PO HS PRN PRN Reason: Insomnia Stop: 02/08/18 19:18 Last Admin: 12/18/17 20:08 Dose: 5 mg General: demented HEENT: NC/AT, PERRLA, EOMI, anicteric sclerae, throat clear Neck: No thyromegaly, +2 carotid pulse wo bruit, + JVD Lungs: CTAB Cardiovascular: RRR, Normal S1, Normal S2, without murmur Abdomen: soft, non-tender, non-distended Extremities: clear Neurological: no change Internal Medicine Assmt/Plan - Assessment Assessment: 1.DM. 2.HTN. 3.CVA. 4.CAD. 5.HYPERLIPIDEMIA. 6.DEMENTIA. - Plan Plan: CONTINUE ON CURRENT MEDICATION AND DIET. Nutritional Asmnt/Malnutr-PDOC - Dietary Evaluation Malnutrition Findings (Please click <Entered> for more info): Nutritional Asmnt/Malnutrition Start: 12/12/17 09: 52 Text: Status: Complete Freq: Protocol: Document 12/12/17 09:52 KARELY (Rec: 12/12/17 10:04 KARELY GONZALEZ- [email or web address]) Nutritional Asmnt/Malnutrition Patient General Information Nutritional Screening High Risk Consult Diagnosis Psychosis, cardiac disease Pertinent Medical Hx/Surgical Hx insulin-dependent diabetes, hypertension, CVA with left- sided weakness, coronary artery disease, hyperlipidemia , depression Subjective Information Consult received for cardiac diet. patient was admitted with BG 639. Patient in room at time of RD visit. Tolerating current diet order with adequate intake. Current Diet Order/ Nutrition Support Cardiac diet Patient / S.O Not Indicated Pertinent Medications maalox, lipitor, colace, novolog, levemir, MOM, Theragran Pertinent Labs Glucose 47-639, HGA1C 9.4, albumin 3.6 Nutritional Hx/Data Height 1.5 m Height (Calculated Centimeters) 149.9 Current Weight (lbs) 68.039 kg Weight (Calculated Kilograms) 68.0 Weight (Calculated Grams) 91945.9 [place] Body Weight 97.5 % [place] Body Weight 153 Body Mass Index (BMI) 30.2 Recent Weight Change No Weight Status Obese GI Symptoms GI Symptoms None Last BM none noted in EMR Difficult in: None Food Allergies No Cultural/Ethnic/Yazdanism Belief none indicated Usual diet at home unknown Skin Integrity/Comment: Roberto 17, No symptoms, abdomen soft, non-tender, round Current %PO Good (75-100%) Estimated Nutritional Goals BEE in Kcals: Adj wt of IBW Calories/Kcals/Kg 25-30 kcal/kg (using Adj wt 50 .2kg ) Kcals Calculated 9544-9060 kcal/day Protein: Adj wt of IBW Protein g/k-1.2 gm/kg Protein Calculated 50-60gm/day Fluid: ml 4300-4492 ml/day Nutritional Problem 1. Problem Problem Altered nutrition related lab values Etiology related to uncontrolled blood sugar aeb Signs/Symptoms: Glucose 47-639, HGA1C 9.4 Intervention/Recommendation Comments 1. Consider modifying diet to 45gm CCHO, cardiac diet. 2. MD to continue to modify insulin regimen for optimal glycemic control. Expected Outcomes/Goals Expected Outcomes/Goals Oral intake >75% of meals, weight stable or trend toward ideal body weight, nutrition related labs normalize
[2017-12-19] MEDS: Insulin Detemir 100 units/mL 10mL Vial SUBQ SCH (21:21)
--- NOTE | 2017-12-19 23:38 | Progress Notes ---
DATE: 12/19/2017 The patient in the hospital, calm and cooperative. She remains withdrawn, disengaged, bouts of confusion, disorientation, still remains impulsive, highly unpredictable, had been very aggressive upon initial presentation, mostly stays to herself. She does seem to be calmer, more cooperative, no longer yelling or screaming, although some bouts of anger, irritability. PLAN: We will continue to monitor, titrate and adjust medications. The patient is doing well with current dosing of Seroquel. [facility]# [id number]
[2017-12-20] MEDS: INSULIN ASPART SLIDING SCALE 100 UNITS/ML UNIT SUBQ SCH ×3 (06:55→21:26)
[2017-12-20] MEDS: Multivitamin w/ Minerals Tab PO SCH (08:45)
--- NOTE | 2017-12-20 15:36 | Progress Notes ---
DATE: 12/20/2017 SUBJECTIVE: The patient remains symptomatic, confused, somewhat disoriented. However, she is calmer, somewhat cooperative, allowing care. No longer is aggressive, no longer symptomatic. Alert and oriented to self only. She does not really know where she is. She does not know where she lives. No agitation, no escalation of behaviors. She is likely approaching her baseline. Tolerant of medications. Seroquel dosing was noted. Sleeping well more engaged and going to groups and going to the day area group area. ASSESSMENT AND PLAN: The patient likely approaching her baseline, calmer, more cooperative. PLAN: We will err on the side of caution, monitor for further 24 hours, adjust and titrate medications, monitor for any side effects. JOB# [id number]
--- NOTE | 2017-12-20 20:56 | Internal Medicine Prog Note ---
Internal Medicine Subjective - Subjective Service Date: 12/20/17 Patient seen and examined:: with staff Patient is:: awake, verbal, arousable, in bed, talking, confused Per staff patient has:: no adverse event Internal Medicine Objective - Results Result Diagrams: 12/10/17 15:35 12/12/17 06:18 Recent Labs: Laboratory Last Values WBC 5.2 Th/cmm (4.8-10.8) 12/10/17 15:35 RBC 4.56 Mil/cmm (3.80-5.10) 12/10/17 15:35 Hgb 14.2 gm/dL (12-16) 12/10/17 15:35 Hct 42.4 % (41.0-60) 12/10/17 15:35 MCV 93.2 fl (81-100) 12/10/17 15:35 MCH 31.2 pg (27.0-31.0) H 12/10/17 15:35 MCHC Differential 33.5 pg (28.0-36.0) 12/10/17 15:35 RDW 12.5 % (11.5-20.0) 12/10/17 15:35 Plt Count 214 Th/cmm (150-400) 12/10/17 15:35 MPV 10.7 fl 12/10/17 15:35 Neutrophils % 66.2 % (40.0-80.0) 12/10/17 15:35 Lymphocytes % 27.0 % (20.0-50.0) 12/10/17 15:35 Monocytes % 4.4 % (2.0-10.0) 12/10/17 15:35 Eosinophils % 1.4 % (0.0-5.0) 12/10/17 15:35 Basophils % 1.0 % (0.0-2.0) 12/10/17 15:35 PT 10.2 SECONDS (9.5-11.5) 12/10/17 15:35 INR 0.98 (0.5-1.4) 12/10/17 15:35 PTT (Actin FS) 19.6 SECONDS (26.0-38.0) L 12/10/17 15:35 Sodium 140 mEq/L (136-145) 12/12/17 06:18 Potassium 3.6 mEq/L (3.5-5.1) 12/12/17 06:18 Chloride 106 mEq/L (98-107) 12/12/17 06:18 Carbon Dioxide 28.3 mEq/L (21.0-31.0) 12/12/17 06:18 Anion Gap 9.3 (7.0-16.0) 12/12/17 06:18 BUN 19 mg/dL (7-25) 12/12/17 06:18 Creatinine 0.5 mg/dL (0.6-1.2) L 12/12/17 06:18 Est GFR ( Amer) > 60.0 ml/min (>90) 12/12/17 06:18 Est GFR (Non-Af Amer) > 60.0 ml/min 12/12/17 06:18 BUN/Creatinine Ratio 38.0 12/12/17 06:18 Glucose 469 mg/dL (70-105) H* 12/19/17 21:40 POC Glucose 271 MG/DL (70 - 105) H 12/20/17 11:52 Hemoglobin A1c % 9.4 % (4.0-6.0) H 12/10/17 15:35 Calcium 9.3 mg/dL (8.6-10.3) 12/12/17 06:18 Total Bilirubin 0.3 mg/dL (0.3-1.0) 12/10/17 15:35 AST 29 U/L (13-39) 12/10/17 15:35 ALT 29 U/L (7-52) 12/10/17 15:35 Alkaline Phosphatase 120 U/L (34-104) H 12/10/17 15:35 Troponin I 0.01 ng/mL (0.01-0.05) 12/10/17 15:35 Total Protein 6.3 gm/dL (6.0-8.3) 12/10/17 15:35 Albumin 3.6 gm/dL (3.7-5.3) L 12/10/17 15:35 Globulin 2.7 gm/dL 12/10/17 15:35 Albumin/Globulin Ratio 1.3 (1.0-1.8) 12/10/17 15:35 Triglycerides 148 mg/dL (<150) 12/16/17 07:38 Cholesterol 155 mg/dL (<200) 12/16/17 07:38 LDL Cholesterol Direct 91 mg/dL (75-193) 12/16/17 07:38 HDL Cholesterol 46 mg/dL (23-92) 12/16/17 07:38 TSH 1.11 uIU/ml (0.34-5.60) 12/10/17 15:35 Urine Source CLEAN C 12/10/17 17:55 Urine Color YELLOW 12/10/17 17:55 Urine Clarity CLOUDY (CLEAR) H 12/10/17 17:55 Urine pH 6.0 (4.6 - 8.0) 12/10/17 17:55 Ur Specific [place] <= 1.005 (1.005-1.030) 12/10/17 17:55 Urine Protein NEGATIVE mg/dL (NEGATIVE) 12/10/17 17:55 Urine Glucose (UA) >=1000 mg/dL (NEGATIVE) H 12/10/17 17:55 Urine Ketones TRACE mg/dL (NEGATIVE) 12/10/17 17:55 Urine Blood LARGE (NEGATIVE) H 12/10/17 17:55 Urine Nitrate NEGATIVE (NEGATIVE) 12/10/17 17:55 Urine Bilirubin NEGATIVE (NEGATIVE) 12/10/17 17:55 Urine Urobilinogen 0.2 E.U./dL (0.2 - 1.0) 12/10/17 17:55 Ur Leukocyte Esterase TRACE (NEGATIVE) H 12/10/17 17:55 Urine RBC 5-10 /hpf (0-5) H 12/10/17 17:55 Urine WBC 2-5 /hpf (0-5) 12/10/17 17:55 Ur Epithelial Cells OCCASIONAL /lpf (FEW) 12/10/17 17:55 Amorphous Sediment MODERATE URATES (NONE SEEN) 12/10/17 17:55 Urine Bacteria FEW /hpf (NONE SEEN) 12/10/17 17:55 RPR NONREACTIVE (NONREACTIVE) 12/10/17 15:35 - Physical Exam Vitals and I&O: Vital Signs Temp 98.5 F 12/20/17 20:52 Pulse 84 12/20/17 20:52 Resp 20 12/20/17 20:52 BP 108/60 12/20/17 20:52 Pulse Ox 97 12/20/17 20:52 Intake & Output 12/20/17 12/20/17 12/21/17 06:59 18:59 06:59 Intake Total 240 1300 240 Balance 240 1300 240 Intake: Oral 240 1300 240 Other: # Voids 3 5 1 # Bowel Movements 0 0 Active Medications: Current Medications Acetaminophen (Tylenol) 650 mg PO Q4HR PRN PRN Reason: Mild Pain / Temp above 100 Stop: 02/08/18 19:18 Last Admin: 12/19/17 09:35 Dose: 650 mg Al Hydrox/Mg Hydrox/Simethicone (Maalox) 30 ml PO Q4HR PRN PRN Reason: GI DISTRESS Stop: 02/14/18 10:50 Atorvastatin Calcium (Lipitor) 40 mg PO HS [facility]; Protocol Stop: 02/08/18 20:59 Last Admin: 12/19/17 21:01 Dose: 40 mg Clopidogrel Bisulfate (Plavix) 75 mg PO DAILY [facility] Stop: 02/09/18 08:59 Last Admin: 12/20/17 08:45 Dose: 75 mg Docusate Sodium (Colace) 100 mg PO DAILY [facility] Stop: 02/09/18 08:59 Last Admin: 12/20/17 08:45 Dose: 100 mg Insulin Aspart (Novolog Insulin Sliding Scale) 0 units SUBQ ACHS [facility]; Protocol Stop: 02/12/18 20:59 Last Admin: 12/20/17 11:58 Dose: 7 units Insulin Detemir (Levemir Insulin) 30 units SUBQ HS [facility] Stop: 02/09/18 20:59 Last Admin: 12/19/17 21:21 Dose: 30 units Lorazepam (Ativan) 0.5 mg PO Q4HR PRN; Protocol PRN Reason: Anxiety Stop: 01/09/18 19:18 Last Admin: 12/17/17 20:10 Dose: 0.5 mg Magnesium Hydroxide (Milk Of Magnesia) 30 ml PO HS PRN PRN Reason: Constipation Metoprolol Tartrate (Lopressor) 25 mg PO BID [facility] Stop: 02/09/18 08:59 Last Admin: 12/20/17 16:46 Dose: 25 mg Nitroglycerin (Nitrostat) 0.4 mg SL Q5MIN PRN PRN Reason: Chest Pain Stop: 02/08/18 18:09 Quetiapine Fumarate (Seroquel) 25 mg PO BID [facility]; Protocol Stop: 02/11/18 16:59 Last Admin: 12/20/17 16:46 Dose: 25 mg Zolpidem Tartrate (Ambien) 5 mg PO HS PRN PRN Reason: Insomnia Stop: 02/08/18 19:18 Last Admin: 12/19/17 21:01 Dose: 5 mg General: demented HEENT: NC/AT, PERRLA, EOMI, anicteric sclerae, throat clear Neck: No thyromegaly, +2 carotid pulse wo bruit, + JVD Lungs: CTAB Cardiovascular: RRR, Normal S1, Normal S2, without murmur Abdomen: soft, non-tender, non-distended Extremities: clear Neurological: no change Internal Medicine Assmt/Plan - Assessment Assessment: 1.DM. 2.HTN. 3.CVA. 4.CAD. 5.HYPERLIPIDEMIA. 6.DEMENTIA. - Plan Plan: CONTINUE ON CURRENT MEDICATION AND DIET. Nutritional Asmnt/Malnutr-PDOC - Dietary Evaluation Malnutrition Findings (Please click <Entered> for more info): Nutritional Asmnt/Malnutrition Start: 12/12/17 09: 52 Text: Status: Complete Freq: Protocol: Document 12/12/17 09:52 KARELY (Rec: 12/12/17 10:04 KARELY GONZALEZ- [email or web address]) Nutritional Asmnt/Malnutrition Patient General Information Nutritional Screening High Risk Consult Diagnosis Psychosis, cardiac disease Pertinent Medical Hx/Surgical Hx insulin-dependent diabetes, hypertension, CVA with left- sided weakness, coronary artery disease, hyperlipidemia , depression Subjective Information Consult received for cardiac diet. patient was admitted with BG 639. Patient in room at time of RD visit. Tolerating current diet order with adequate intake. Current Diet Order/ Nutrition Support Cardiac diet Patient / S.O Not Indicated Pertinent Medications maalox, lipitor, colace, novolog, levemir, MOM, Theragran Pertinent Labs Glucose 47-639, HGA1C 9.4, albumin 3.6 Nutritional Hx/Data Height 1.5 m Height (Calculated Centimeters) 149.9 Current Weight (lbs) 68.039 kg Weight (Calculated Kilograms) 68.0 Weight (Calculated Grams) 21046.9 [place] Body Weight 97.5 % [place] Body Weight 153 Body Mass Index (BMI) 30.2 Recent Weight Change No Weight Status Obese GI Symptoms GI Symptoms None Last BM none noted in EMR Difficult in: None Food Allergies No Cultural/Ethnic/Mormon Belief none indicated Usual diet at home unknown Skin Integrity/Comment: Roberto 17, No symptoms, abdomen soft, non-tender, round Current %PO Good (75-100%) Estimated Nutritional Goals BEE in Kcals: Adj wt of IBW Calories/Kcals/Kg 25-30 kcal/kg (using Adj wt 50 .2kg ) Kcals Calculated 5501-0959 kcal/day Protein: Adj wt of IBW Protein g/k-1.2 gm/kg Protein Calculated 50-60gm/day Fluid: ml 7892-4335 ml/day Nutritional Problem 1. Problem Problem Altered nutrition related lab values Etiology related to uncontrolled blood sugar aeb Signs/Symptoms: Glucose 47-639, HGA1C 9.4 Intervention/Recommendation Comments 1. Consider modifying diet to 45gm CCHO, cardiac diet. 2. MD to continue to modify insulin regimen for optimal glycemic control. Expected Outcomes/Goals Expected Outcomes/Goals Oral intake >75% of meals, weight stable or trend toward ideal body weight, nutrition related labs normalize
[2017-12-20] MEDS: Insulin Detemir 100 units/mL 10mL Vial SUBQ SCH (21:27)
[2017-12-21] MEDS: INSULIN ASPART SLIDING SCALE 100 UNITS/ML UNIT SUBQ SCH ×4 (06:34→20:18)
[2017-12-21] MEDS: Multivitamin w/ Minerals Tab PO SCH (08:25)
--- NOTE | 2017-12-21 10:06 | Progress Notes ---
DATE: SUBJECTIVE: The patient seen, chart reviewed, discussed with staff. The patient is confused, disoriented, mostly isolative, but in the dayroom today, calmer, more cooperative, no longer agitated. It seems that her symptoms are dissipating and decreasing. She seems significantly calmer, tolerant of treatment, tolerant of medications. The patient likely approaching her baseline, sleeping well, eating well. ASSESSMENT: The patient likely approaching her baseline, symptoms and behaviors seem to be lessening, ongoing concerns about her impulse control. PLAN: We will continue Seroquel, monitor for any side effects, monitor for any behavioral disturbances. [facility]# [id number]
--- NOTE | 2017-12-21 13:02 | Internal Medicine Prog Note ---
Internal Medicine Subjective - Subjective Service Date: 12/21/17 Patient seen and examined:: with staff Patient is:: awake, verbal, arousable, in bed, talking, confused Per staff patient has:: no adverse event Internal Medicine Objective - Results Result Diagrams: 12/10/17 15:35 12/12/17 06:18 Recent Labs: Laboratory Last Values WBC 5.2 Th/cmm (4.8-10.8) 12/10/17 15:35 RBC 4.56 Mil/cmm (3.80-5.10) 12/10/17 15:35 Hgb 14.2 gm/dL (12-16) 12/10/17 15:35 Hct 42.4 % (41.0-60) 12/10/17 15:35 MCV 93.2 fl (81-100) 12/10/17 15:35 MCH 31.2 pg (27.0-31.0) H 12/10/17 15:35 MCHC Differential 33.5 pg (28.0-36.0) 12/10/17 15:35 RDW 12.5 % (11.5-20.0) 12/10/17 15:35 Plt Count 214 Th/cmm (150-400) 12/10/17 15:35 MPV 10.7 fl 12/10/17 15:35 Neutrophils % 66.2 % (40.0-80.0) 12/10/17 15:35 Lymphocytes % 27.0 % (20.0-50.0) 12/10/17 15:35 Monocytes % 4.4 % (2.0-10.0) 12/10/17 15:35 Eosinophils % 1.4 % (0.0-5.0) 12/10/17 15:35 Basophils % 1.0 % (0.0-2.0) 12/10/17 15:35 PT 10.2 SECONDS (9.5-11.5) 12/10/17 15:35 INR 0.98 (0.5-1.4) 12/10/17 15:35 PTT (Actin FS) 19.6 SECONDS (26.0-38.0) L 12/10/17 15:35 Sodium 140 mEq/L (136-145) 12/12/17 06:18 Potassium 3.6 mEq/L (3.5-5.1) 12/12/17 06:18 Chloride 106 mEq/L (98-107) 12/12/17 06:18 Carbon Dioxide 28.3 mEq/L (21.0-31.0) 12/12/17 06:18 Anion Gap 9.3 (7.0-16.0) 12/12/17 06:18 BUN 19 mg/dL (7-25) 12/12/17 06:18 Creatinine 0.5 mg/dL (0.6-1.2) L 12/12/17 06:18 Est GFR ( Amer) > 60.0 ml/min (>90) 12/12/17 06:18 Est GFR (Non-Af Amer) > 60.0 ml/min 12/12/17 06:18 BUN/Creatinine Ratio 38.0 12/12/17 06:18 Glucose 469 mg/dL (70-105) H* 12/19/17 21:40 POC Glucose 79 MG/DL (70 - 105) 12/21/17 06:21 Hemoglobin A1c % 9.4 % (4.0-6.0) H 12/10/17 15:35 Calcium 9.3 mg/dL (8.6-10.3) 12/12/17 06:18 Total Bilirubin 0.3 mg/dL (0.3-1.0) 12/10/17 15:35 AST 29 U/L (13-39) 12/10/17 15:35 ALT 29 U/L (7-52) 12/10/17 15:35 Alkaline Phosphatase 120 U/L (34-104) H 12/10/17 15:35 Troponin I 0.01 ng/mL (0.01-0.05) 12/10/17 15:35 Total Protein 6.3 gm/dL (6.0-8.3) 12/10/17 15:35 Albumin 3.6 gm/dL (3.7-5.3) L 12/10/17 15:35 Globulin 2.7 gm/dL 12/10/17 15:35 Albumin/Globulin Ratio 1.3 (1.0-1.8) 12/10/17 15:35 Triglycerides 148 mg/dL (<150) 12/16/17 07:38 Cholesterol 155 mg/dL (<200) 12/16/17 07:38 LDL Cholesterol Direct 91 mg/dL (75-193) 12/16/17 07:38 HDL Cholesterol 46 mg/dL (23-92) 12/16/17 07:38 TSH 1.11 uIU/ml (0.34-5.60) 12/10/17 15:35 Urine Source CLEAN C 12/10/17 17:55 Urine Color YELLOW 12/10/17 17:55 Urine Clarity CLOUDY (CLEAR) H 12/10/17 17:55 Urine pH 6.0 (4.6 - 8.0) 12/10/17 17:55 Ur Specific [place] <= 1.005 (1.005-1.030) 12/10/17 17:55 Urine Protein NEGATIVE mg/dL (NEGATIVE) 12/10/17 17:55 Urine Glucose (UA) >=1000 mg/dL (NEGATIVE) H 12/10/17 17:55 Urine Ketones TRACE mg/dL (NEGATIVE) 12/10/17 17:55 Urine Blood LARGE (NEGATIVE) H 12/10/17 17:55 Urine Nitrate NEGATIVE (NEGATIVE) 12/10/17 17:55 Urine Bilirubin NEGATIVE (NEGATIVE) 12/10/17 17:55 Urine Urobilinogen 0.2 E.U./dL (0.2 - 1.0) 12/10/17 17:55 Ur Leukocyte Esterase TRACE (NEGATIVE) H 12/10/17 17:55 Urine RBC 5-10 /hpf (0-5) H 12/10/17 17:55 Urine WBC 2-5 /hpf (0-5) 12/10/17 17:55 Ur Epithelial Cells OCCASIONAL /lpf (FEW) 12/10/17 17:55 Amorphous Sediment MODERATE URATES (NONE SEEN) 12/10/17 17:55 Urine Bacteria FEW /hpf (NONE SEEN) 12/10/17 17:55 RPR NONREACTIVE (NONREACTIVE) 12/10/17 15:35 - Physical Exam Vitals and I&O: Vital Signs Temp 97.9 F 12/21/17 06:35 Pulse 76 12/21/17 06:35 Resp 20 12/21/17 06:35 BP 100/56 12/21/17 06:35 Pulse Ox 96 12/21/17 06:35 Intake & Output 12/20/17 12/21/17 12/21/17 18:59 06:59 18:59 Intake Total 1300 240 Balance 1300 240 Intake: Oral 1300 240 Other: # Voids 5 3 # Bowel Movements 0 0 Active Medications: Current Medications Acetaminophen (Tylenol) 650 mg PO Q4HR PRN PRN Reason: Mild Pain / Temp above 100 Stop: 02/08/18 19:18 Last Admin: 12/19/17 09:35 Dose: 650 mg Al Hydrox/Mg Hydrox/Simethicone (Maalox) 30 ml PO Q4HR PRN PRN Reason: GI DISTRESS Stop: 02/14/18 10:50 Atorvastatin Calcium (Lipitor) 40 mg PO HS [facility]; Protocol Stop: 02/08/18 20:59 Last Admin: 12/20/17 21:27 Dose: 40 mg Clopidogrel Bisulfate (Plavix) 75 mg PO DAILY [facility] Stop: 02/09/18 08:59 Last Admin: 12/21/17 08:25 Dose: 75 mg Docusate Sodium (Colace) 100 mg PO DAILY [facility] Stop: 02/09/18 08:59 Last Admin: 12/21/17 08:25 Dose: 100 mg Insulin Aspart (Novolog Insulin Sliding Scale) 0 units SUBQ ACHS [facility]; Protocol Stop: 02/12/18 20:59 Last Admin: 12/21/17 11:34 Dose: Not Given Insulin Detemir (Levemir Insulin) 30 units SUBQ HS [facility] Stop: 02/09/18 20:59 Last Admin: 12/20/17 21:27 Dose: 30 units Lorazepam (Ativan) 0.5 mg PO Q4HR PRN; Protocol PRN Reason: Anxiety Stop: 01/09/18 19:18 Last Admin: 12/17/17 20:10 Dose: 0.5 mg Magnesium Hydroxide (Milk Of Magnesia) 30 ml PO HS PRN PRN Reason: Constipation Metoprolol Tartrate (Lopressor) 25 mg PO BID [facility] Stop: 02/09/18 08:59 Last Admin: 12/21/17 08:29 Dose: Not Given Nitroglycerin (Nitrostat) 0.4 mg SL Q5MIN PRN PRN Reason: Chest Pain Stop: 02/08/18 18:09 Quetiapine Fumarate (Seroquel) 25 mg PO BID [facility]; Protocol Stop: 02/11/18 16:59 Last Admin: 12/21/17 08:25 Dose: 25 mg Zolpidem Tartrate (Ambien) 5 mg PO HS PRN PRN Reason: Insomnia Stop: 02/08/18 19:18 Last Admin: 12/19/17 21:01 Dose: 5 mg General: demented HEENT: NC/AT, PERRLA, EOMI, anicteric sclerae, throat clear Neck: No thyromegaly, +2 carotid pulse wo bruit, + JVD Lungs: CTAB Cardiovascular: RRR, Normal S1, Normal S2, without murmur Abdomen: soft, non-tender, non-distended Extremities: clear Neurological: no change Internal Medicine Assmt/Plan - Assessment Assessment: 1.DM. 2.HTN. 3.CVA. 4.CAD. 5.HYPERLIPIDEMIA. 6.DEMENTIA. - Plan Plan: CONTINUE ON CURRENT MEDICATION AND DIET. Nutritional Asmnt/Malnutr-PDOC - Dietary Evaluation Malnutrition Findings (Please click <Entered> for more info): Nutritional Asmnt/Malnutrition Start: 12/12/17 09: 52 Text: Status: Complete Freq: Protocol: Document 12/12/17 09:52 KARELY (Rec: 12/12/17 10:04 KARELY GONZALEZ- [email or web address]) Nutritional Asmnt/Malnutrition Patient General Information Nutritional Screening High Risk Consult Diagnosis Psychosis, cardiac disease Pertinent Medical Hx/Surgical Hx insulin-dependent diabetes, hypertension, CVA with left- sided weakness, coronary artery disease, hyperlipidemia , depression Subjective Information Consult received for cardiac diet. patient was admitted with BG 639. Patient in room at time of RD visit. Tolerating current diet order with adequate intake. Current Diet Order/ Nutrition Support Cardiac diet Patient / S.O Not Indicated Pertinent Medications maalox, lipitor, colace, novolog, levemir, MOM, Theragran Pertinent Labs Glucose 47-639, HGA1C 9.4, albumin 3.6 Nutritional Hx/Data Height 1.5 m Height (Calculated Centimeters) 149.9 Current Weight (lbs) 68.039 kg Weight (Calculated Kilograms) 68.0 Weight (Calculated Grams) 63614.9 [place] Body Weight 97.5 % [place] Body Weight 153 Body Mass Index (BMI) 30.2 Recent Weight Change No Weight Status Obese GI Symptoms GI Symptoms None Last BM none noted in EMR Difficult in: None Food Allergies No Cultural/Ethnic/Jew Belief none indicated Usual diet at home unknown Skin Integrity/Comment: Roberto 17, No symptoms, abdomen soft, non-tender, round Current %PO Good (75-100%) Estimated Nutritional Goals BEE in Kcals: Adj wt of IBW Calories/Kcals/Kg 25-30 kcal/kg (using Adj wt 50 .2kg ) Kcals Calculated 5256-2870 kcal/day Protein: Adj wt of IBW Protein g/k-1.2 gm/kg Protein Calculated 50-60gm/day Fluid: ml 8103-6969 ml/day Nutritional Problem 1. Problem Problem Altered nutrition related lab values Etiology related to uncontrolled blood sugar aeb Signs/Symptoms: Glucose 47-639, HGA1C 9.4 Intervention/Recommendation Comments 1. Consider modifying diet to 45gm CCHO, cardiac diet. 2. MD to continue to modify insulin regimen for optimal glycemic control. Expected Outcomes/Goals Expected Outcomes/Goals Oral intake >75% of meals, weight stable or trend toward ideal body weight, nutrition related labs normalize
[2017-12-21] MEDS: Insulin Detemir 100 units/mL 10mL Vial SUBQ SCH (20:18)
[2017-12-22] MEDS: INSULIN ASPART SLIDING SCALE 100 UNITS/ML UNIT SUBQ SCH ×4 (06:53→20:21)
[2017-12-22] MEDS: Multivitamin w/ Minerals Tab PO SCH (08:41)
--- NOTE | 2017-12-22 11:48 | Progress Notes ---
DATE: 12/22/2017 SUBJECTIVE: The patient calmer, still disoriented. No longer combative or agitated. At this point, I am mostly concerned about her blood sugar, is hovering around 500. She is significantly calmer, tolerant of treatment. She has been more med compliant, still remains confused, disoriented, does not really know where she is or what is going on, does not know where she lives. Staff also concerned about her blood sugar, sleeping well, eating well. ASSESSMENT: The patient is confused, disoriented, behavior is seemed to be dissipating and decreasing likely approaching her baseline and confused, but not agitated. PLAN: We will continue to monitor. I am concerned about her blood sugar, medical stability given that it is hovering around 500. JOB# [id number]
[2017-12-22] MEDS: Insulin Detemir 100 units/mL 10mL Vial SUBQ SCH (20:23)
[2017-12-22] MEDS ORDERED: INSULIN ASPART, RECOMBINANT 100 UNITS/ML SUBQ ONE (21:15)
--- NOTE | 2017-12-22 22:32 | Internal Medicine Prog Note ---
Internal Medicine Subjective - Subjective Service Date: 12/22/17 Patient seen and examined:: with staff Patient is:: awake, verbal, arousable, in bed, talking, confused Per staff patient has:: no adverse event Internal Medicine Objective - Results Result Diagrams: 12/10/17 15:35 12/12/17 06:18 Recent Labs: Laboratory Last Values WBC 5.2 Th/cmm (4.8-10.8) 12/10/17 15:35 RBC 4.56 Mil/cmm (3.80-5.10) 12/10/17 15:35 Hgb 14.2 gm/dL (12-16) 12/10/17 15:35 Hct 42.4 % (41.0-60) 12/10/17 15:35 MCV 93.2 fl (81-100) 12/10/17 15:35 MCH 31.2 pg (27.0-31.0) H 12/10/17 15:35 MCHC Differential 33.5 pg (28.0-36.0) 12/10/17 15:35 RDW 12.5 % (11.5-20.0) 12/10/17 15:35 Plt Count 214 Th/cmm (150-400) 12/10/17 15:35 MPV 10.7 fl 12/10/17 15:35 Neutrophils % 66.2 % (40.0-80.0) 12/10/17 15:35 Lymphocytes % 27.0 % (20.0-50.0) 12/10/17 15:35 Monocytes % 4.4 % (2.0-10.0) 12/10/17 15:35 Eosinophils % 1.4 % (0.0-5.0) 12/10/17 15:35 Basophils % 1.0 % (0.0-2.0) 12/10/17 15:35 PT 10.2 SECONDS (9.5-11.5) 12/10/17 15:35 INR 0.98 (0.5-1.4) 12/10/17 15:35 PTT (Actin FS) 19.6 SECONDS (26.0-38.0) L 12/10/17 15:35 Sodium 140 mEq/L (136-145) 12/12/17 06:18 Potassium 3.6 mEq/L (3.5-5.1) 12/12/17 06:18 Chloride 106 mEq/L (98-107) 12/12/17 06:18 Carbon Dioxide 28.3 mEq/L (21.0-31.0) 12/12/17 06:18 Anion Gap 9.3 (7.0-16.0) 12/12/17 06:18 BUN 19 mg/dL (7-25) 12/12/17 06:18 Creatinine 0.5 mg/dL (0.6-1.2) L 12/12/17 06:18 Est GFR ( Amer) > 60.0 ml/min (>90) 12/12/17 06:18 Est GFR (Non-Af Amer) > 60.0 ml/min 12/12/17 06:18 BUN/Creatinine Ratio 38.0 12/12/17 06:18 Glucose 469 mg/dL (70-105) H* 12/19/17 21:40 POC Glucose 471 MG/DL (70 - 105) H* 12/22/17 21:30 Hemoglobin A1c % 9.4 % (4.0-6.0) H 12/10/17 15:35 Calcium 9.3 mg/dL (8.6-10.3) 12/12/17 06:18 Total Bilirubin 0.3 mg/dL (0.3-1.0) 12/10/17 15:35 AST 29 U/L (13-39) 12/10/17 15:35 ALT 29 U/L (7-52) 12/10/17 15:35 Alkaline Phosphatase 120 U/L (34-104) H 12/10/17 15:35 Troponin I 0.01 ng/mL (0.01-0.05) 12/10/17 15:35 Total Protein 6.3 gm/dL (6.0-8.3) 12/10/17 15:35 Albumin 3.6 gm/dL (3.7-5.3) L 12/10/17 15:35 Globulin 2.7 gm/dL 12/10/17 15:35 Albumin/Globulin Ratio 1.3 (1.0-1.8) 12/10/17 15:35 Triglycerides 148 mg/dL (<150) 12/16/17 07:38 Cholesterol 155 mg/dL (<200) 12/16/17 07:38 LDL Cholesterol Direct 91 mg/dL (75-193) 12/16/17 07:38 HDL Cholesterol 46 mg/dL (23-92) 12/16/17 07:38 TSH 1.11 uIU/ml (0.34-5.60) 12/10/17 15:35 Urine Source CLEAN C 12/10/17 17:55 Urine Color YELLOW 12/10/17 17:55 Urine Clarity CLOUDY (CLEAR) H 12/10/17 17:55 Urine pH 6.0 (4.6 - 8.0) 12/10/17 17:55 Ur Specific [place] <= 1.005 (1.005-1.030) 12/10/17 17:55 Urine Protein NEGATIVE mg/dL (NEGATIVE) 12/10/17 17:55 Urine Glucose (UA) >=1000 mg/dL (NEGATIVE) H 12/10/17 17:55 Urine Ketones TRACE mg/dL (NEGATIVE) 12/10/17 17:55 Urine Blood LARGE (NEGATIVE) H 12/10/17 17:55 Urine Nitrate NEGATIVE (NEGATIVE) 12/10/17 17:55 Urine Bilirubin NEGATIVE (NEGATIVE) 12/10/17 17:55 Urine Urobilinogen 0.2 E.U./dL (0.2 - 1.0) 12/10/17 17:55 Ur Leukocyte Esterase TRACE (NEGATIVE) H 12/10/17 17:55 Urine RBC 5-10 /hpf (0-5) H 12/10/17 17:55 Urine WBC 2-5 /hpf (0-5) 12/10/17 17:55 Ur Epithelial Cells OCCASIONAL /lpf (FEW) 12/10/17 17:55 Amorphous Sediment MODERATE URATES (NONE SEEN) 12/10/17 17:55 Urine Bacteria FEW /hpf (NONE SEEN) 12/10/17 17:55 RPR NONREACTIVE (NONREACTIVE) 12/10/17 15:35 - Physical Exam Vitals and I&O: Vital Signs Temp 98.2 F 12/22/17 14:00 Pulse 76 12/22/17 14:00 Resp 18 12/22/17 14:00 BP 116/63 12/22/17 14:00 Pulse Ox 96 12/22/17 14:00 Intake & Output 12/22/17 12/22/17 12/23/17 06:59 18:59 06:59 Intake Total 120 1400 Balance 120 1400 Intake: Oral 120 1400 Other: # Voids 3 3 # Bowel Movements 0 0 Active Medications: Current Medications Acetaminophen (Tylenol) 650 mg PO Q4HR PRN PRN Reason: Mild Pain / Temp above 100 Stop: 02/08/18 19:18 Last Admin: 12/19/17 09:35 Dose: 650 mg Al Hydrox/Mg Hydrox/Simethicone (Maalox) 30 ml PO Q4HR PRN PRN Reason: GI DISTRESS Stop: 02/14/18 10:50 Atorvastatin Calcium (Lipitor) 40 mg PO HS [facility]; Protocol Stop: 02/08/18 20:59 Last Admin: 12/22/17 20:23 Dose: 40 mg Clopidogrel Bisulfate (Plavix) 75 mg PO DAILY [facility] Stop: 02/09/18 08:59 Last Admin: 12/22/17 08:40 Dose: 75 mg Docusate Sodium (Colace) 100 mg PO DAILY [facility] Stop: 02/09/18 08:59 Last Admin: 12/22/17 08:40 Dose: 100 mg Insulin Detemir (Levemir Insulin) 30 units SUBQ HS [facility] Stop: 02/09/18 20:59 Last Admin: 12/22/17 20:23 Dose: 30 units Insulin Detemir (Levemir Insulin) 10 units SUBQ DAILY [facility]; Protocol Stop: 02/21/18 08:59 Lorazepam (Ativan) 0.5 mg PO Q4HR PRN; Protocol PRN Reason: Anxiety Stop: 01/09/18 19:18 Last Admin: 12/17/17 20:10 Dose: 0.5 mg Magnesium Hydroxide (Milk Of Magnesia) 30 ml PO HS PRN PRN Reason: Constipation Metoprolol Tartrate (Lopressor) 25 mg PO BID [facility] Stop: 02/09/18 08:59 Last Admin: 12/22/17 17:01 Dose: Not Given Nitroglycerin (Nitrostat) 0.4 mg SL Q5MIN PRN PRN Reason: Chest Pain Stop: 02/08/18 18:09 Quetiapine Fumarate (Seroquel) 25 mg PO BID [facility]; Protocol Stop: 02/11/18 16:59 Last Admin: 12/22/17 17:01 Dose: Not Given Zolpidem Tartrate (Ambien) 5 mg PO HS PRN PRN Reason: Insomnia Stop: 02/08/18 19:18 Last Admin: 12/22/17 20:23 Dose: 5 mg General: demented HEENT: NC/AT, PERRLA, EOMI, anicteric sclerae, throat clear Neck: No thyromegaly, +2 carotid pulse wo bruit, + JVD Lungs: CTAB Cardiovascular: RRR, Normal S1, Normal S2, without murmur Abdomen: soft, non-tender, non-distended Extremities: clear Neurological: no change Internal Medicine Assmt/Plan - Assessment Assessment: 1.DM. 2.HTN. 3.CVA. 4.CAD. 5.HYPERLIPIDEMIA. 6.DEMENTIA. - Plan Plan: CONTINUE ON CURRENT MEDICATION AND DIET.ADD LEVAMIR 10 U IN AM. Nutritional Asmnt/Malnutr-PDOC - Dietary Evaluation Malnutrition Findings (Please click <Entered> for more info): Nutritional Asmnt/Malnutrition Start: 12/12/17 09: 52 Text: Status: Complete Freq: Protocol: Document 12/12/17 09:52 KARELY (Rec: 12/12/17 10:04 KARELY GONZALEZ- [email or web address]) Nutritional Asmnt/Malnutrition Patient General Information Nutritional Screening High Risk Consult Diagnosis Psychosis, cardiac disease Pertinent Medical Hx/Surgical Hx insulin-dependent diabetes, hypertension, CVA with left- sided weakness, coronary artery disease, hyperlipidemia , depression Subjective Information Consult received for cardiac diet. patient was admitted with BG 639. Patient in room at time of RD visit. Tolerating current diet order with adequate intake. Current Diet Order/ Nutrition Support Cardiac diet Patient / S.O Not Indicated Pertinent Medications maalox, lipitor, colace, novolog, levemir, MOM, Theragran Pertinent Labs Glucose 47-639, HGA1C 9.4, albumin 3.6 Nutritional Hx/Data Height 1.5 m Height (Calculated Centimeters) 149.9 Current Weight (lbs) 68.039 kg Weight (Calculated Kilograms) 68.0 Weight (Calculated Grams) 34005.9 [place] Body Weight 97.5 % [place] Body Weight 153 Body Mass Index (BMI) 30.2 Recent Weight Change No Weight Status Obese GI Symptoms GI Symptoms None Last BM none noted in EMR Difficult in: None Food Allergies No Cultural/Ethnic/Rastafarian Belief none indicated Usual diet at home unknown Skin Integrity/Comment: Roberto 17, No symptoms, abdomen soft, non-tender, round Current %PO Good (75-100%) Estimated Nutritional Goals BEE in Kcals: Adj wt of IBW Calories/Kcals/Kg 25-30 kcal/kg (using Adj wt 50 .2kg ) Kcals Calculated 7035-2675 kcal/day Protein: Adj wt of IBW Protein g/k-1.2 gm/kg Protein Calculated 50-60gm/day Fluid: ml 4730-5638 ml/day Nutritional Problem 1. Problem Problem Altered nutrition related lab values Etiology related to uncontrolled blood sugar aeb Signs/Symptoms: Glucose 47-639, HGA1C 9.4 Intervention/Recommendation Comments 1. Consider modifying diet to 45gm CCHO, cardiac diet. 2. MD to continue to modify insulin regimen for optimal glycemic control. Expected Outcomes/Goals Expected Outcomes/Goals Oral intake >75% of meals, weight stable or trend toward ideal body weight, nutrition related labs normalize
[2017-12-23] MEDS: INSULIN ASPART SLIDING SCALE 100 UNITS/ML UNIT SUBQ SCH ×4 (06:36→20:36)
[2017-12-23] MEDS ORDERED: Insulin Detemir 100 units/mL 10mL Vial SUBQ SCH ×2 (07:30→09:00)
--- NOTE | 2017-12-23 08:04 | Progress Notes ---
DATE: 12/23/2017 SUBJECTIVE: The patient remains disoriented, believes she lives with her daughter. Blood sugar of 505. Medication changes were made and dropped to around 17, so her blood sugars are pretty unstable. I have concerns about her medical stability right now. She is likely at her psychiatric and mental status baseline, confused, disoriented, but pleasantly confused. Sleeping well, eating well, mostly isolative and withdrawn, tolerant of Seroquel. ASSESSMENT: The patient remains symptomatic, out of control, blood sugar concerns about her medical stability. We will continue to monitor on an inpatient basis. JOB# [id number]
[2017-12-23] MEDS: Multivitamin w/ Minerals Tab PO SCH (09:42)
[2017-12-23] MEDS: Insulin Detemir 100 units/mL 10mL Vial SUBQ SCH (20:36)
--- NOTE | 2017-12-23 21:48 | Internal Medicine Prog Note ---
Internal Medicine Subjective - Subjective Service Date: 12/23/17 Patient seen and examined:: without staff Patient is:: awake, verbal, arousable, in bed, talking, confused Per staff patient has:: no adverse event Internal Medicine Objective - Results Result Diagrams: 12/10/17 15:35 12/12/17 06:18 Recent Labs: Laboratory Last Values WBC 5.2 Th/cmm (4.8-10.8) 12/10/17 15:35 RBC 4.56 Mil/cmm (3.80-5.10) 12/10/17 15:35 Hgb 14.2 gm/dL (12-16) 12/10/17 15:35 Hct 42.4 % (41.0-60) 12/10/17 15:35 MCV 93.2 fl (81-100) 12/10/17 15:35 MCH 31.2 pg (27.0-31.0) H 12/10/17 15:35 MCHC Differential 33.5 pg (28.0-36.0) 12/10/17 15:35 RDW 12.5 % (11.5-20.0) 12/10/17 15:35 Plt Count 214 Th/cmm (150-400) 12/10/17 15:35 MPV 10.7 fl 12/10/17 15:35 Neutrophils % 66.2 % (40.0-80.0) 12/10/17 15:35 Lymphocytes % 27.0 % (20.0-50.0) 12/10/17 15:35 Monocytes % 4.4 % (2.0-10.0) 12/10/17 15:35 Eosinophils % 1.4 % (0.0-5.0) 12/10/17 15:35 Basophils % 1.0 % (0.0-2.0) 12/10/17 15:35 PT 10.2 SECONDS (9.5-11.5) 12/10/17 15:35 INR 0.98 (0.5-1.4) 12/10/17 15:35 PTT (Actin FS) 19.6 SECONDS (26.0-38.0) L 12/10/17 15:35 Sodium 140 mEq/L (136-145) 12/12/17 06:18 Potassium 3.6 mEq/L (3.5-5.1) 12/12/17 06:18 Chloride 106 mEq/L (98-107) 12/12/17 06:18 Carbon Dioxide 28.3 mEq/L (21.0-31.0) 12/12/17 06:18 Anion Gap 9.3 (7.0-16.0) 12/12/17 06:18 BUN 19 mg/dL (7-25) 12/12/17 06:18 Creatinine 0.5 mg/dL (0.6-1.2) L 12/12/17 06:18 Est GFR ( Amer) > 60.0 ml/min (>90) 12/12/17 06:18 Est GFR (Non-Af Amer) > 60.0 ml/min 12/12/17 06:18 BUN/Creatinine Ratio 38.0 12/12/17 06:18 Glucose 469 mg/dL (70-105) H* 12/19/17 21:40 POC Glucose 248 MG/DL (70 - 105) H 12/23/17 19:58 Hemoglobin A1c % 9.4 % (4.0-6.0) H 12/10/17 15:35 Calcium 9.3 mg/dL (8.6-10.3) 12/12/17 06:18 Total Bilirubin 0.3 mg/dL (0.3-1.0) 12/10/17 15:35 AST 29 U/L (13-39) 12/10/17 15:35 ALT 29 U/L (7-52) 12/10/17 15:35 Alkaline Phosphatase 120 U/L (34-104) H 12/10/17 15:35 Troponin I 0.01 ng/mL (0.01-0.05) 12/10/17 15:35 Total Protein 6.3 gm/dL (6.0-8.3) 12/10/17 15:35 Albumin 3.6 gm/dL (3.7-5.3) L 12/10/17 15:35 Globulin 2.7 gm/dL 12/10/17 15:35 Albumin/Globulin Ratio 1.3 (1.0-1.8) 12/10/17 15:35 Triglycerides 148 mg/dL (<150) 12/16/17 07:38 Cholesterol 155 mg/dL (<200) 12/16/17 07:38 LDL Cholesterol Direct 91 mg/dL (75-193) 12/16/17 07:38 HDL Cholesterol 46 mg/dL (23-92) 12/16/17 07:38 TSH 1.11 uIU/ml (0.34-5.60) 12/10/17 15:35 Urine Source CLEAN C 12/10/17 17:55 Urine Color YELLOW 12/10/17 17:55 Urine Clarity CLOUDY (CLEAR) H 12/10/17 17:55 Urine pH 6.0 (4.6 - 8.0) 12/10/17 17:55 Ur Specific [place] <= 1.005 (1.005-1.030) 12/10/17 17:55 Urine Protein NEGATIVE mg/dL (NEGATIVE) 12/10/17 17:55 Urine Glucose (UA) >=1000 mg/dL (NEGATIVE) H 12/10/17 17:55 Urine Ketones TRACE mg/dL (NEGATIVE) 12/10/17 17:55 Urine Blood LARGE (NEGATIVE) H 12/10/17 17:55 Urine Nitrate NEGATIVE (NEGATIVE) 12/10/17 17:55 Urine Bilirubin NEGATIVE (NEGATIVE) 12/10/17 17:55 Urine Urobilinogen 0.2 E.U./dL (0.2 - 1.0) 12/10/17 17:55 Ur Leukocyte Esterase TRACE (NEGATIVE) H 12/10/17 17:55 Urine RBC 5-10 /hpf (0-5) H 12/10/17 17:55 Urine WBC 2-5 /hpf (0-5) 12/10/17 17:55 Ur Epithelial Cells OCCASIONAL /lpf (FEW) 12/10/17 17:55 Amorphous Sediment MODERATE URATES (NONE SEEN) 12/10/17 17:55 Urine Bacteria FEW /hpf (NONE SEEN) 12/10/17 17:55 RPR NONREACTIVE (NONREACTIVE) 12/10/17 15:35 - Physical Exam Vitals and I&O: Vital Signs Temp 98.3 F 12/23/17 21:09 Pulse 77 12/23/17 21:09 Resp 18 12/23/17 21:09 BP 130/76 12/23/17 21:09 Pulse Ox 94 12/23/17 21:09 Intake & Output 12/23/17 12/23/17 12/24/17 06:59 18:59 06:59 Intake Total 1200 240 Balance 1200 240 Intake: Oral 1200 240 Other: # Voids 2 # Bowel Movements 1 Active Medications: Current Medications Acetaminophen (Tylenol) 650 mg PO Q4HR PRN PRN Reason: Mild Pain / Temp above 100 Stop: 02/08/18 19:18 Last Admin: 12/19/17 09:35 Dose: 650 mg Al Hydrox/Mg Hydrox/Simethicone (Maalox) 30 ml PO Q4HR PRN PRN Reason: GI DISTRESS Stop: 02/14/18 10:50 Atorvastatin Calcium (Lipitor) 40 mg PO HS [facility]; Protocol Stop: 02/08/18 20:59 Last Admin: 12/23/17 20:35 Dose: 40 mg Clopidogrel Bisulfate (Plavix) 75 mg PO DAILY [facility] Stop: 02/09/18 08:59 Last Admin: 12/23/17 09:42 Dose: 75 mg Docusate Sodium (Colace) 100 mg PO DAILY [facility] Stop: 02/09/18 08:59 Last Admin: 12/23/17 09:42 Dose: 100 mg Insulin Aspart (Novolog Insulin Sliding Scale) 0 units SUBQ ACHS [facility]; Protocol Stop: 01/22/18 07:29 Last Admin: 12/23/17 20:36 Dose: 5 units Insulin Detemir (Levemir Insulin) 30 units SUBQ HS [facility] Stop: 02/09/18 20:59 Last Admin: 12/23/17 20:36 Dose: 30 units Insulin Detemir (Levemir Insulin) 10 units SUBQ DAILY [facility]; Protocol Stop: 02/21/18 08:59 Last Admin: 12/23/17 09:55 Dose: 10 units Lorazepam (Ativan) 0.5 mg PO Q4HR PRN; Protocol PRN Reason: Anxiety Stop: 01/09/18 19:18 Last Admin: 12/17/17 20:10 Dose: 0.5 mg Magnesium Hydroxide (Milk Of Magnesia) 30 ml PO HS PRN PRN Reason: Constipation Metoprolol Tartrate (Lopressor) 25 mg PO BID [facility] Stop: 02/09/18 08:59 Last Admin: 12/23/17 17:08 Dose: Not Given Nitroglycerin (Nitrostat) 0.4 mg SL Q5MIN PRN PRN Reason: Chest Pain Stop: 02/08/18 18:09 Quetiapine Fumarate (Seroquel) 25 mg PO BID [facility]; Protocol Stop: 02/11/18 16:59 Last Admin: 12/23/17 17:07 Dose: 25 mg Zolpidem Tartrate (Ambien) 5 mg PO HS PRN PRN Reason: Insomnia Stop: 02/08/18 19:18 Last Admin: 12/22/17 20:23 Dose: 5 mg General: demented HEENT: NC/AT, PERRLA, EOMI, anicteric sclerae, throat clear Neck: No thyromegaly, +2 carotid pulse wo bruit, + JVD Lungs: CTAB Cardiovascular: RRR, Normal S1, Normal S2, without murmur Abdomen: soft, non-tender, non-distended Extremities: clear Neurological: no change Internal Medicine Assmt/Plan - Assessment Assessment: 1.DM. 2.HTN. 3.CVA. 4.CAD. 5.HYPERLIPIDEMIA. 6.DEMENTIA. - Plan Plan: CONTINUE ON CURRENT MEDICATION AND DIET. Nutritional Asmnt/Malnutr-PDOC - Dietary Evaluation Malnutrition Findings (Please click <Entered> for more info): Nutritional Asmnt/Malnutrition Start: 12/12/17 09: 52 Text: Status: Complete Freq: Protocol: Document 12/12/17 09:52 KARELY (Rec: 12/12/17 10:04 KARELY GONZALEZ- [email or web address]) Nutritional Asmnt/Malnutrition Patient General Information Nutritional Screening High Risk Consult Diagnosis Psychosis, cardiac disease Pertinent Medical Hx/Surgical Hx insulin-dependent diabetes, hypertension, CVA with left- sided weakness, coronary artery disease, hyperlipidemia , depression Subjective Information Consult received for cardiac diet. patient was admitted with BG 639. Patient in room at time of RD visit. Tolerating current diet order with adequate intake. Current Diet Order/ Nutrition Support Cardiac diet Patient / S.O Not Indicated Pertinent Medications maalox, lipitor, colace, novolog, levemir, MOM, Theragran Pertinent Labs Glucose 47-639, HGA1C 9.4, albumin 3.6 Nutritional Hx/Data Height 1.5 m Height (Calculated Centimeters) 149.9 Current Weight (lbs) 68.039 kg Weight (Calculated Kilograms) 68.0 Weight (Calculated Grams) 69075.9 [place] Body Weight 97.5 % [place] Body Weight 153 Body Mass Index (BMI) 30.2 Recent Weight Change No Weight Status Obese GI Symptoms GI Symptoms None Last BM none noted in EMR Difficult in: None Food Allergies No Cultural/Ethnic/Congregational Belief none indicated Usual diet at home unknown Skin Integrity/Comment: Roberto Squires, No symptoms, abdomen soft, non-tender, round Current %PO Good (75-100%) Estimated Nutritional Goals BEE in Kcals: Adj wt of IBW Calories/Kcals/Kg 25-30 kcal/kg (using Adj wt 50 .2kg ) Kcals Calculated 0250-2848 kcal/day Protein: Adj wt of IBW Protein g/k-1.2 gm/kg Protein Calculated 50-60gm/day Fluid: ml 5021-8554 ml/day Nutritional Problem 1. Problem Problem Altered nutrition related lab values Etiology related to uncontrolled blood sugar aeb Signs/Symptoms: Glucose 47-639, HGA1C 9.4 Intervention/Recommendation Comments 1. Consider modifying diet to 45gm CCHO, cardiac diet. 2. MD to continue to modify insulin regimen for optimal glycemic control. Expected Outcomes/Goals Expected Outcomes/Goals Oral intake >75% of meals, weight stable or trend toward ideal body weight, nutrition related labs normalize
[2017-12-24] MEDS: INSULIN ASPART SLIDING SCALE 100 UNITS/ML UNIT SUBQ SCH ×4 (07:30→20:46)
[2017-12-24] MEDS: Insulin Detemir 100 units/mL 10mL Vial SUBQ SCH ×2 (09:40→20:47)
[2017-12-24] MEDS: Multivitamin w/ Minerals Tab PO SCH (09:49)
--- NOTE | 2017-12-24 16:58 | General Progress Note ---
Subjective - Review of Systems Service Date: 12/24/17 Subjective: resting comfortably no distress Objective - Results Result Diagrams: 12/10/17 15:35 12/12/17 06:18 Recent Labs: Laboratory Last Values WBC 5.2 Th/cmm (4.8-10.8) 12/10/17 15:35 RBC 4.56 Mil/cmm (3.80-5.10) 12/10/17 15:35 Hgb 14.2 gm/dL (12-16) 12/10/17 15:35 Hct 42.4 % (41.0-60) 12/10/17 15:35 MCV 93.2 fl (81-100) 12/10/17 15:35 MCH 31.2 pg (27.0-31.0) H 12/10/17 15:35 MCHC Differential 33.5 pg (28.0-36.0) 12/10/17 15:35 RDW 12.5 % (11.5-20.0) 12/10/17 15:35 Plt Count 214 Th/cmm (150-400) 12/10/17 15:35 MPV 10.7 fl 12/10/17 15:35 Neutrophils % 66.2 % (40.0-80.0) 12/10/17 15:35 Lymphocytes % 27.0 % (20.0-50.0) 12/10/17 15:35 Monocytes % 4.4 % (2.0-10.0) 12/10/17 15:35 Eosinophils % 1.4 % (0.0-5.0) 12/10/17 15:35 Basophils % 1.0 % (0.0-2.0) 12/10/17 15:35 PT 10.2 SECONDS (9.5-11.5) 12/10/17 15:35 INR 0.98 (0.5-1.4) 12/10/17 15:35 PTT (Actin FS) 19.6 SECONDS (26.0-38.0) L 12/10/17 15:35 Sodium 140 mEq/L (136-145) 12/12/17 06:18 Potassium 3.6 mEq/L (3.5-5.1) 12/12/17 06:18 Chloride 106 mEq/L (98-107) 12/12/17 06:18 Carbon Dioxide 28.3 mEq/L (21.0-31.0) 12/12/17 06:18 Anion Gap 9.3 (7.0-16.0) 12/12/17 06:18 BUN 19 mg/dL (7-25) 12/12/17 06:18 Creatinine 0.5 mg/dL (0.6-1.2) L 12/12/17 06:18 Est GFR ( Amer) > 60.0 ml/min (>90) 12/12/17 06:18 Est GFR (Non-Af Amer) > 60.0 ml/min 12/12/17 06:18 BUN/Creatinine Ratio 38.0 12/12/17 06:18 Glucose 507 mg/dL (70-105) H* 12/24/17 12:03 POC Glucose 500 MG/DL (70 - 105) H* 12/24/17 11:25 Hemoglobin A1c % 9.4 % (4.0-6.0) H 12/10/17 15:35 Calcium 9.3 mg/dL (8.6-10.3) 12/12/17 06:18 Total Bilirubin 0.3 mg/dL (0.3-1.0) 12/10/17 15:35 AST 29 U/L (13-39) 12/10/17 15:35 ALT 29 U/L (7-52) 12/10/17 15:35 Alkaline Phosphatase 120 U/L (34-104) H 12/10/17 15:35 Troponin I 0.01 ng/mL (0.01-0.05) 12/10/17 15:35 Total Protein 6.3 gm/dL (6.0-8.3) 12/10/17 15:35 Albumin 3.6 gm/dL (3.7-5.3) L 12/10/17 15:35 Globulin 2.7 gm/dL 12/10/17 15:35 Albumin/Globulin Ratio 1.3 (1.0-1.8) 12/10/17 15:35 Triglycerides 148 mg/dL (<150) 12/16/17 07:38 Cholesterol 155 mg/dL (<200) 12/16/17 07:38 LDL Cholesterol Direct 91 mg/dL (75-193) 12/16/17 07:38 HDL Cholesterol 46 mg/dL (23-92) 12/16/17 07:38 TSH 1.11 uIU/ml (0.34-5.60) 12/10/17 15:35 Urine Source CLEAN C 12/10/17 17:55 Urine Color YELLOW 12/10/17 17:55 Urine Clarity CLOUDY (CLEAR) H 12/10/17 17:55 Urine pH 6.0 (4.6 - 8.0) 12/10/17 17:55 Ur Specific [place] <= 1.005 (1.005-1.030) 12/10/17 17:55 Urine Protein NEGATIVE mg/dL (NEGATIVE) 12/10/17 17:55 Urine Glucose (UA) >=1000 mg/dL (NEGATIVE) H 12/10/17 17:55 Urine Ketones TRACE mg/dL (NEGATIVE) 12/10/17 17:55 Urine Blood LARGE (NEGATIVE) H 12/10/17 17:55 Urine Nitrate NEGATIVE (NEGATIVE) 12/10/17 17:55 Urine Bilirubin NEGATIVE (NEGATIVE) 12/10/17 17:55 Urine Urobilinogen 0.2 E.U./dL (0.2 - 1.0) 12/10/17 17:55 Ur Leukocyte Esterase TRACE (NEGATIVE) H 12/10/17 17:55 Urine RBC 5-10 /hpf (0-5) H 12/10/17 17:55 Urine WBC 2-5 /hpf (0-5) 12/10/17 17:55 Ur Epithelial Cells OCCASIONAL /lpf (FEW) 12/10/17 17:55 Amorphous Sediment MODERATE URATES (NONE SEEN) 12/10/17 17:55 Urine Bacteria FEW /hpf (NONE SEEN) 12/10/17 17:55 RPR NONREACTIVE (NONREACTIVE) 12/10/17 15:35 - Physical Exam Vitals and I&O: Vital Signs Temp 98.6 F 12/24/17 15:02 Pulse 78 12/24/17 15:02 Resp 19 12/24/17 15:02 BP 100/51 12/24/17 15:02 Pulse Ox 98 12/24/17 15:02 Intake & Output 12/23/17 12/24/17 12/24/17 18:59 06:59 18:59 Intake Total 1200 480 Balance 1200 480 Intake: Oral 1200 480 Other: # Voids 2 # Bowel Movements 1 Active Medications: Current Medications Acetaminophen (Tylenol) 650 mg PO Q4HR PRN PRN Reason: Mild Pain / Temp above 100 Stop: 02/08/18 19:18 Last Admin: 12/19/17 09:35 Dose: 650 mg Al Hydrox/Mg Hydrox/Simethicone (Maalox) 30 ml PO Q4HR PRN PRN Reason: GI DISTRESS Stop: 02/14/18 10:50 Atorvastatin Calcium (Lipitor) 40 mg PO HS [facility]; Protocol Stop: 02/08/18 20:59 Last Admin: 12/23/17 20:35 Dose: 40 mg Clopidogrel Bisulfate (Plavix) 75 mg PO DAILY [facility] Stop: 02/09/18 08:59 Last Admin: 12/24/17 09:17 Dose: 75 mg Docusate Sodium (Colace) 100 mg PO DAILY [facility] Stop: 02/09/18 08:59 Last Admin: 12/24/17 09:47 Dose: 100 mg Insulin Aspart (Novolog Insulin Sliding Scale) 0 units SUBQ ACHS [facility]; Protocol Stop: 01/22/18 07:29 Last Admin: 12/24/17 16:31 Dose: 7 units Insulin Detemir (Levemir Insulin) 30 units SUBQ HS [facility] Stop: 02/09/18 20:59 Last Admin: 12/23/17 20:36 Dose: 30 units Insulin Detemir (Levemir Insulin) 15 units SUBQ DAILY [facility]; Protocol Stop: 02/22/18 08:59 Last Admin: 12/24/17 09:40 Dose: 15 units Lorazepam (Ativan) 0.5 mg PO Q4HR PRN; Protocol PRN Reason: Anxiety Stop: 01/09/18 19:18 Last Admin: 12/17/17 20:10 Dose: 0.5 mg Magnesium Hydroxide (Milk Of Magnesia) 30 ml PO HS PRN PRN Reason: Constipation Metoprolol Tartrate (Lopressor) 25 mg PO BID [facility] Stop: 02/09/18 08:59 Last Admin: 12/24/17 09:17 Dose: 25 mg Nitroglycerin (Nitrostat) 0.4 mg SL Q5MIN PRN PRN Reason: Chest Pain Stop: 02/08/18 18:09 Quetiapine Fumarate (Seroquel) 25 mg PO BID [facility]; Protocol Stop: 02/11/18 16:59 Last Admin: 12/24/17 09:47 Dose: 25 mg Zolpidem Tartrate (Ambien) 5 mg PO HS PRN PRN Reason: Insomnia Stop: 02/08/18 19:18 Last Admin: 12/22/17 20:23 Dose: 5 mg General: No acute distress HEENT: Atraumatic, PERRLA Neck: Supple, JVD, Thyromegaly Cardiovascular: Regular rate, Normal S1, Normal S2 Lungs: Clear to auscultation Abdomen: Bowel sounds, Soft Assessment/Plan - Assessment Assessment: DM CAD HTN CVA - Plan Plan: cont current treatment Nutritional Asmnt/Malnutr-PDOC - Dietary Evaluation Malnutrition Findings (Please click <Entered> for more info): Nutritional Asmnt/Malnutrition Start: 12/12/17 09: 52 Text: Status: Complete Freq: Protocol: Document 12/12/17 09:52 MMOPAL (Rec: 12/12/17 10:04 MMOPAL CARLOS- FNS1) Nutritional Asmnt/Malnutrition Patient General Information Nutritional Screening High Risk Consult Diagnosis Psychosis, cardiac disease Pertinent Medical Hx/Surgical Hx insulin-dependent diabetes, hypertension, CVA with left- sided weakness, coronary artery disease, hyperlipidemia , depression Subjective Information Consult received for cardiac diet. patient was admitted with BG 639. Patient in room at time of RD visit. Tolerating current diet order with adequate intake. Current Diet Order/ Nutrition Support Cardiac diet Patient / S.O Not Indicated Pertinent Medications maalox, lipitor, colace, novolog, levemir, MOM, Theragran Pertinent Labs Glucose 47-639, HGA1C 9.4, albumin 3.6 Nutritional Hx/Data Height 1.5 m Height (Calculated Centimeters) 149.9 Current Weight (lbs) 68.039 kg Weight (Calculated Kilograms) 68.0 Weight (Calculated Grams) 61087.9 [place] Body Weight 97.5 % [place] Body Weight 153 Body Mass Index (BMI) 30.2 Recent Weight Change No Weight Status Obese GI Symptoms GI Symptoms None Last BM none noted in EMR Difficult in: None Food Allergies No Cultural/Ethnic/Gnosticist Belief none indicated Usual diet at home unknown Skin Integrity/Comment: Roberto 17, No symptoms, abdomen soft, non-tender, round Current %PO Good (75-100%) Estimated Nutritional Goals BEE in Kcals: Adj wt of IBW Calories/Kcals/Kg 25-30 kcal/kg (using Adj wt 50 .2kg ) Kcals Calculated 4590-7402 kcal/day Protein: Adj wt of IBW Protein g/k-1.2 gm/kg Protein Calculated 50-60gm/day Fluid: ml 8581-0079 ml/day Nutritional Problem 1. Problem Problem Altered nutrition related lab values Etiology related to uncontrolled blood sugar aeb Signs/Symptoms: Glucose 47-639, HGA1C 9.4 Intervention/Recommendation Comments 1. Consider modifying diet to 45gm CCHO, cardiac diet. 2. MD to continue to modify insulin regimen for optimal glycemic control. Expected Outcomes/Goals Expected Outcomes/Goals Oral intake >75% of meals, weight stable or trend toward ideal body weight, nutrition related labs normalize
[2017-12-25] MEDS: INSULIN ASPART SLIDING SCALE 100 UNITS/ML UNIT SUBQ SCH ×4 (06:35→21:29)
[2017-12-25] MEDS: Multivitamin w/ Minerals Tab PO SCH (08:56)
[2017-12-25] MEDS: Insulin Detemir 100 units/mL 10mL Vial SUBQ SCH ×2 (08:57→21:27)
--- NOTE | 2017-12-25 19:15 | Progress Notes ---
DATE: 12/24/2017 SUBJECTIVE: The patient was seen and evaluated. The patient's chart reviewed. Noted that the patient continues to be mildly confused, disoriented, but pleasantly confused. Today, on [id number] evaluation, the patient reports she tends to guard, though she feels a little bit better. She denies any ____ but continues to maintain herself isolated, withdrawn. MENTAL STATUS EXAMINATION: Still isolated, withdrawn, disengaged. ASSESSMENT AND PLAN: The patient is still symptomatic in terms of out of control blood sugars. There is lot of concern about her medical instability. We will continue monitoring ____ medical doctor to continue following up in regard to the patient's blood sugar. [facility]# [id number]
--- NOTE | 2017-12-25 20:26 | General Progress Note ---
Subjective - Review of Systems Service Date: 12/25/17 Subjective: resting comfortably no distress Objective - Results Result Diagrams: 12/10/17 15:35 12/12/17 06:18 Recent Labs: Laboratory Last Values WBC 5.2 Th/cmm (4.8-10.8) 12/10/17 15:35 RBC 4.56 Mil/cmm (3.80-5.10) 12/10/17 15:35 Hgb 14.2 gm/dL (12-16) 12/10/17 15:35 Hct 42.4 % (41.0-60) 12/10/17 15:35 MCV 93.2 fl (81-100) 12/10/17 15:35 MCH 31.2 pg (27.0-31.0) H 12/10/17 15:35 MCHC Differential 33.5 pg (28.0-36.0) 12/10/17 15:35 RDW 12.5 % (11.5-20.0) 12/10/17 15:35 Plt Count 214 Th/cmm (150-400) 12/10/17 15:35 MPV 10.7 fl 12/10/17 15:35 Neutrophils % 66.2 % (40.0-80.0) 12/10/17 15:35 Lymphocytes % 27.0 % (20.0-50.0) 12/10/17 15:35 Monocytes % 4.4 % (2.0-10.0) 12/10/17 15:35 Eosinophils % 1.4 % (0.0-5.0) 12/10/17 15:35 Basophils % 1.0 % (0.0-2.0) 12/10/17 15:35 PT 10.2 SECONDS (9.5-11.5) 12/10/17 15:35 INR 0.98 (0.5-1.4) 12/10/17 15:35 PTT (Actin FS) 19.6 SECONDS (26.0-38.0) L 12/10/17 15:35 Sodium 140 mEq/L (136-145) 12/12/17 06:18 Potassium 3.6 mEq/L (3.5-5.1) 12/12/17 06:18 Chloride 106 mEq/L (98-107) 12/12/17 06:18 Carbon Dioxide 28.3 mEq/L (21.0-31.0) 12/12/17 06:18 Anion Gap 9.3 (7.0-16.0) 12/12/17 06:18 BUN 19 mg/dL (7-25) 12/12/17 06:18 Creatinine 0.5 mg/dL (0.6-1.2) L 12/12/17 06:18 Est GFR ( Amer) > 60.0 ml/min (>90) 12/12/17 06:18 Est GFR (Non-Af Amer) > 60.0 ml/min 12/12/17 06:18 BUN/Creatinine Ratio 38.0 12/12/17 06:18 Glucose 507 mg/dL (70-105) H* 12/24/17 12:03 POC Glucose 493 MG/DL (70 - 105) H* 12/25/17 19:38 Hemoglobin A1c % 9.4 % (4.0-6.0) H 12/10/17 15:35 Calcium 9.3 mg/dL (8.6-10.3) 12/12/17 06:18 Total Bilirubin 0.3 mg/dL (0.3-1.0) 12/10/17 15:35 AST 29 U/L (13-39) 12/10/17 15:35 ALT 29 U/L (7-52) 12/10/17 15:35 Alkaline Phosphatase 120 U/L (34-104) H 12/10/17 15:35 Troponin I 0.01 ng/mL (0.01-0.05) 12/10/17 15:35 Total Protein 6.3 gm/dL (6.0-8.3) 12/10/17 15:35 Albumin 3.6 gm/dL (3.7-5.3) L 12/10/17 15:35 Globulin 2.7 gm/dL 12/10/17 15:35 Albumin/Globulin Ratio 1.3 (1.0-1.8) 12/10/17 15:35 Triglycerides 148 mg/dL (<150) 12/16/17 07:38 Cholesterol 155 mg/dL (<200) 12/16/17 07:38 LDL Cholesterol Direct 91 mg/dL (75-193) 12/16/17 07:38 HDL Cholesterol 46 mg/dL (23-92) 12/16/17 07:38 TSH 1.11 uIU/ml (0.34-5.60) 12/10/17 15:35 Urine Source CLEAN C 12/10/17 17:55 Urine Color YELLOW 12/10/17 17:55 Urine Clarity CLOUDY (CLEAR) H 12/10/17 17:55 Urine pH 6.0 (4.6 - 8.0) 12/10/17 17:55 Ur Specific [place] <= 1.005 (1.005-1.030) 12/10/17 17:55 Urine Protein NEGATIVE mg/dL (NEGATIVE) 12/10/17 17:55 Urine Glucose (UA) >=1000 mg/dL (NEGATIVE) H 12/10/17 17:55 Urine Ketones TRACE mg/dL (NEGATIVE) 12/10/17 17:55 Urine Blood LARGE (NEGATIVE) H 12/10/17 17:55 Urine Nitrate NEGATIVE (NEGATIVE) 12/10/17 17:55 Urine Bilirubin NEGATIVE (NEGATIVE) 12/10/17 17:55 Urine Urobilinogen 0.2 E.U./dL (0.2 - 1.0) 12/10/17 17:55 Ur Leukocyte Esterase TRACE (NEGATIVE) H 12/10/17 17:55 Urine RBC 5-10 /hpf (0-5) H 12/10/17 17:55 Urine WBC 2-5 /hpf (0-5) 12/10/17 17:55 Ur Epithelial Cells OCCASIONAL /lpf (FEW) 12/10/17 17:55 Amorphous Sediment MODERATE URATES (NONE SEEN) 12/10/17 17:55 Urine Bacteria FEW /hpf (NONE SEEN) 12/10/17 17:55 RPR NONREACTIVE (NONREACTIVE) 12/10/17 15:35 - Physical Exam Vitals and I&O: Vital Signs Temp 98.2 F 12/25/17 15:00 Pulse 82 12/25/17 17:32 Resp 18 12/25/17 15:00 BP 121/64 12/25/17 17:32 Pulse Ox 100 12/25/17 15:00 Intake & Output 12/25/17 12/25/17 12/26/17 06:59 18:59 06:59 Intake Total 240 950 Output Total 1 Balance 239 950 Intake: Oral 240 950 Output: Urine/Stool Mix 1 Other: # Voids 1 4 # Bowel Movements 2 Active Medications: Current Medications Acetaminophen (Tylenol) 650 mg PO Q4HR PRN PRN Reason: Mild Pain / Temp above 100 Stop: 02/08/18 19:18 Last Admin: 12/19/17 09:35 Dose: 650 mg Al Hydrox/Mg Hydrox/Simethicone (Maalox) 30 ml PO Q4HR PRN PRN Reason: GI DISTRESS Stop: 02/14/18 10:50 Atorvastatin Calcium (Lipitor) 40 mg PO HS [facility]; Protocol Stop: 02/08/18 20:59 Last Admin: 12/24/17 20:46 Dose: 40 mg Clopidogrel Bisulfate (Plavix) 75 mg PO DAILY [facility] Stop: 02/09/18 08:59 Last Admin: 12/25/17 08:54 Dose: 75 mg Docusate Sodium (Colace) 100 mg PO DAILY [facility] Stop: 02/09/18 08:59 Last Admin: 12/25/17 08:56 Dose: 100 mg Insulin Aspart (Novolog Insulin Sliding Scale) 0 units SUBQ ACHS [facility]; Protocol Stop: 01/22/18 07:29 Last Admin: 12/25/17 17:27 Dose: Not Given Insulin Detemir (Levemir Insulin) 30 units SUBQ HS [facility] Stop: 02/09/18 20:59 Last Admin: 12/24/17 20:47 Dose: 30 units Insulin Detemir (Levemir Insulin) 15 units SUBQ DAILY [facility]; Protocol Stop: 02/22/18 08:59 Last Admin: 12/25/17 08:57 Dose: 15 units Lorazepam (Ativan) 0.5 mg PO Q4HR PRN; Protocol PRN Reason: Anxiety Stop: 01/09/18 19:18 Last Admin: 12/25/17 01:41 Dose: 0.5 mg Magnesium Hydroxide (Milk Of Magnesia) 30 ml PO HS PRN PRN Reason: Constipation Metoprolol Tartrate (Lopressor) 25 mg PO BID [facility] Stop: 02/09/18 08:59 Last Admin: 12/25/17 17:32 Dose: 25 mg Nitroglycerin (Nitrostat) 0.4 mg SL Q5MIN PRN PRN Reason: Chest Pain Stop: 02/08/18 18:09 Quetiapine Fumarate (Seroquel) 25 mg PO BID [facility]; Protocol Stop: 02/11/18 16:59 Last Admin: 12/25/17 17:31 Dose: 25 mg Zolpidem Tartrate (Ambien) 5 mg PO HS PRN PRN Reason: Insomnia Stop: 02/08/18 19:18 Last Admin: 12/24/17 20:49 Dose: 5 mg General: No acute distress HEENT: Atraumatic, PERRLA Neck: Supple, JVD, Thyromegaly Cardiovascular: Regular rate, Normal S1, Normal S2 Lungs: Clear to auscultation Abdomen: Bowel sounds, Soft Assessment/Plan - Assessment Assessment: DM CAD HTN CVA - Plan Plan: cont current treatment Nutritional Asmnt/Malnutr-PDOC - Dietary Evaluation Malnutrition Findings (Please click <Entered> for more info): Nutritional Asmnt/Malnutrition Start: 12/12/17 09: 52 Text: Status: Complete Freq: Protocol: Document 12/12/17 09:52 KARELY (Rec: 12/12/17 10:04 KARELY GONZALEZ- [email or web address]) Nutritional Asmnt/Malnutrition Patient General Information Nutritional Screening High Risk Consult Diagnosis Psychosis, cardiac disease Pertinent Medical Hx/Surgical Hx insulin-dependent diabetes, hypertension, CVA with left- sided weakness, coronary artery disease, hyperlipidemia , depression Subjective Information Consult received for cardiac diet. patient was admitted with BG 639. Patient in room at time of RD visit. Tolerating current diet order with adequate intake. Current Diet Order/ Nutrition Support Cardiac diet Patient / S.O Not Indicated Pertinent Medications maalox, lipitor, colace, novolog, levemir, MOM, Theragran Pertinent Labs Glucose 47-639, HGA1C 9.4, albumin 3.6 Nutritional Hx/Data Height 1.5 m Height (Calculated Centimeters) 149.9 Current Weight (lbs) 68.039 kg Weight (Calculated Kilograms) 68.0 Weight (Calculated Grams) 25577.9 [place] Body Weight 97.5 % [place] Body Weight 153 Body Mass Index (BMI) 30.2 Recent Weight Change No Weight Status Obese GI Symptoms GI Symptoms None Last BM none noted in EMR Difficult in: None Food Allergies No Cultural/Ethnic/Rastafari Belief none indicated Usual diet at home unknown Skin Integrity/Comment: Roberto 17, No symptoms, abdomen soft, non-tender, round Current %PO Good (75-100%) Estimated Nutritional Goals BEE in Kcals: Adj wt of IBW Calories/Kcals/Kg 25-30 kcal/kg (using Adj wt 50 .2kg ) Kcals Calculated 2658-9001 kcal/day Protein: Adj wt of IBW Protein g/k-1.2 gm/kg Protein Calculated 50-60gm/day Fluid: ml 0878-3779 ml/day Nutritional Problem 1. Problem Problem Altered nutrition related lab values Etiology related to uncontrolled blood sugar aeb Signs/Symptoms: Glucose 47-639, HGA1C 9.4 Intervention/Recommendation Comments 1. Consider modifying diet to 45gm CCHO, cardiac diet. 2. MD to continue to modify insulin regimen for optimal glycemic control. Expected Outcomes/Goals Expected Outcomes/Goals Oral intake >75% of meals, weight stable or trend toward ideal body weight, nutrition related labs normalize
[2017-12-26] MEDS: INSULIN ASPART SLIDING SCALE 100 UNITS/ML UNIT SUBQ SCH ×4 (09:09→20:51)
[2017-12-26] MEDS: Multivitamin w/ Minerals Tab PO SCH (09:13)
[2017-12-26] MEDS: Insulin Detemir 100 units/mL 10mL Vial SUBQ SCH ×2 (09:13→20:51)
--- NOTE | 2017-12-26 11:24 | Progress Notes ---
DATE: The patient was seen and evaluated. The patient's chart reviewed. Overnight no acute events. Today on [id number] evaluation, the patient reports her mood is little bit stable, less depressed. MENTAL STATUS EXAMINATION: Stable from . ASSESSMENT AND PLAN: The patient is a 62-year-old female with a history of status post cerebrovascular accident, tolerating medications well with less residual disorganized thought process. We will continue monitoring and evaluating and continue with primary psychiatric treatment plan and goals. [facility]# [id number]
--- NOTE | 2017-12-26 18:29 | Progress Notes ---
DATE: 12/26/2017 SUBJECTIVE: The patient is currently in the hospital. Blood sugars remain pretty out of control. Nursing staff having a hard time controlling her blood sugars. His primary doctor is continuing to make adjustments to her insulin dosing. The patient remains pleasantly confused. She is aware of her blood sugar issues. Staff with ongoing concerns about her blood sugars given how erratic they are. Blood sugar this morning was at 33, the high was at 346. The patient is sleeping well, eating well. ASSESSMENT: The patient poorly oriented, depressed, withdrawn, but calm. PLAN: We will continue to monitor, continue to adjust Levemir and insulin dosing to try to better control blood sugar. I am concerned about her blood sugars. I am concerned about her medical therapy. JOB# [id number]
--- NOTE | 2017-12-26 19:41 | Internal Medicine Prog Note ---
Internal Medicine Subjective - Subjective Service Date: 12/26/17 Patient seen and examined:: with staff Patient is:: awake, verbal, arousable, in bed, talking, confused Per staff patient has:: no adverse event Internal Medicine Objective - Results Result Diagrams: 12/10/17 15:35 12/12/17 06:18 Recent Labs: Laboratory Last Values WBC 5.2 Th/cmm (4.8-10.8) 12/10/17 15:35 RBC 4.56 Mil/cmm (3.80-5.10) 12/10/17 15:35 Hgb 14.2 gm/dL (12-16) 12/10/17 15:35 Hct 42.4 % (41.0-60) 12/10/17 15:35 MCV 93.2 fl (81-100) 12/10/17 15:35 MCH 31.2 pg (27.0-31.0) H 12/10/17 15:35 MCHC Differential 33.5 pg (28.0-36.0) 12/10/17 15:35 RDW 12.5 % (11.5-20.0) 12/10/17 15:35 Plt Count 214 Th/cmm (150-400) 12/10/17 15:35 MPV 10.7 fl 12/10/17 15:35 Neutrophils % 66.2 % (40.0-80.0) 12/10/17 15:35 Lymphocytes % 27.0 % (20.0-50.0) 12/10/17 15:35 Monocytes % 4.4 % (2.0-10.0) 12/10/17 15:35 Eosinophils % 1.4 % (0.0-5.0) 12/10/17 15:35 Basophils % 1.0 % (0.0-2.0) 12/10/17 15:35 PT 10.2 SECONDS (9.5-11.5) 12/10/17 15:35 INR 0.98 (0.5-1.4) 12/10/17 15:35 PTT (Actin FS) 19.6 SECONDS (26.0-38.0) L 12/10/17 15:35 Sodium 140 mEq/L (136-145) 12/12/17 06:18 Potassium 3.6 mEq/L (3.5-5.1) 12/12/17 06:18 Chloride 106 mEq/L (98-107) 12/12/17 06:18 Carbon Dioxide 28.3 mEq/L (21.0-31.0) 12/12/17 06:18 Anion Gap 9.3 (7.0-16.0) 12/12/17 06:18 BUN 19 mg/dL (7-25) 12/12/17 06:18 Creatinine 0.5 mg/dL (0.6-1.2) L 12/12/17 06:18 Est GFR ( Amer) > 60.0 ml/min (>90) 12/12/17 06:18 Est GFR (Non-Af Amer) > 60.0 ml/min 12/12/17 06:18 BUN/Creatinine Ratio 38.0 12/12/17 06:18 Glucose 507 mg/dL (70-105) H* 12/24/17 12:03 POC Glucose 84 MG/DL (70 - 105) 12/26/17 06:36 Hemoglobin A1c % 9.4 % (4.0-6.0) H 12/10/17 15:35 Calcium 9.3 mg/dL (8.6-10.3) 12/12/17 06:18 Total Bilirubin 0.3 mg/dL (0.3-1.0) 12/10/17 15:35 AST 29 U/L (13-39) 12/10/17 15:35 ALT 29 U/L (7-52) 12/10/17 15:35 Alkaline Phosphatase 120 U/L (34-104) H 12/10/17 15:35 Troponin I 0.01 ng/mL (0.01-0.05) 12/10/17 15:35 Total Protein 6.3 gm/dL (6.0-8.3) 12/10/17 15:35 Albumin 3.6 gm/dL (3.7-5.3) L 12/10/17 15:35 Globulin 2.7 gm/dL 12/10/17 15:35 Albumin/Globulin Ratio 1.3 (1.0-1.8) 12/10/17 15:35 Triglycerides 148 mg/dL (<150) 12/16/17 07:38 Cholesterol 155 mg/dL (<200) 12/16/17 07:38 LDL Cholesterol Direct 91 mg/dL (75-193) 12/16/17 07:38 HDL Cholesterol 46 mg/dL (23-92) 12/16/17 07:38 TSH 1.11 uIU/ml (0.34-5.60) 12/10/17 15:35 Urine Source CLEAN C 12/10/17 17:55 Urine Color YELLOW 12/10/17 17:55 Urine Clarity CLOUDY (CLEAR) H 12/10/17 17:55 Urine pH 6.0 (4.6 - 8.0) 12/10/17 17:55 Ur Specific [place] <= 1.005 (1.005-1.030) 12/10/17 17:55 Urine Protein NEGATIVE mg/dL (NEGATIVE) 12/10/17 17:55 Urine Glucose (UA) >=1000 mg/dL (NEGATIVE) H 12/10/17 17:55 Urine Ketones TRACE mg/dL (NEGATIVE) 12/10/17 17:55 Urine Blood LARGE (NEGATIVE) H 12/10/17 17:55 Urine Nitrate NEGATIVE (NEGATIVE) 12/10/17 17:55 Urine Bilirubin NEGATIVE (NEGATIVE) 12/10/17 17:55 Urine Urobilinogen 0.2 E.U./dL (0.2 - 1.0) 12/10/17 17:55 Ur Leukocyte Esterase TRACE (NEGATIVE) H 12/10/17 17:55 Urine RBC 5-10 /hpf (0-5) H 12/10/17 17:55 Urine WBC 2-5 /hpf (0-5) 12/10/17 17:55 Ur Epithelial Cells OCCASIONAL /lpf (FEW) 12/10/17 17:55 Amorphous Sediment MODERATE URATES (NONE SEEN) 12/10/17 17:55 Urine Bacteria FEW /hpf (NONE SEEN) 12/10/17 17:55 RPR NONREACTIVE (NONREACTIVE) 12/10/17 15:35 - Physical Exam Vitals and I&O: Vital Signs Temp 98.6 F 12/26/17 17:47 Pulse 75 12/26/17 17:47 Resp 18 12/26/17 17:47 BP 99/56 12/26/17 17:47 Pulse Ox 98 12/26/17 17:47 Intake & Output 12/26/17 12/26/17 12/27/17 06:59 18:59 06:59 Intake Total 240 950 Balance 240 950 Intake: Oral 240 950 Other: # Voids 3 4 # Bowel Movements 0 1 Active Medications: Current Medications Acetaminophen (Tylenol) 650 mg PO Q4HR PRN PRN Reason: Mild Pain / Temp above 100 Stop: 02/08/18 19:18 Last Admin: 12/19/17 09:35 Dose: 650 mg Al Hydrox/Mg Hydrox/Simethicone (Maalox) 30 ml PO Q4HR PRN PRN Reason: GI DISTRESS Stop: 02/14/18 10:50 Atorvastatin Calcium (Lipitor) 40 mg PO HS [facility]; Protocol Stop: 02/08/18 20:59 Last Admin: 12/25/17 20:46 Dose: 40 mg Clopidogrel Bisulfate (Plavix) 75 mg PO DAILY [facility] Stop: 02/09/18 08:59 Last Admin: 12/26/17 09:12 Dose: 75 mg Docusate Sodium (Colace) 100 mg PO DAILY [facility] Stop: 02/09/18 08:59 Last Admin: 12/26/17 09:12 Dose: 100 mg Insulin Aspart (Novolog Insulin Sliding Scale) 0 units SUBQ ACHS [facility]; Protocol Stop: 01/22/18 07:29 Last Admin: 12/26/17 17:11 Dose: 3 units Insulin Detemir (Levemir Insulin) 30 units SUBQ HS [facility] Stop: 02/09/18 20:59 Last Admin: 12/25/17 21:27 Dose: 30 units Insulin Detemir (Levemir Insulin) 15 units SUBQ DAILY [facility]; Protocol Stop: 02/22/18 08:59 Last Admin: 12/26/17 09:13 Dose: 15 units Lorazepam (Ativan) 0.5 mg PO Q4HR PRN; Protocol PRN Reason: Anxiety Stop: 01/09/18 19:18 Last Admin: 12/25/17 01:41 Dose: 0.5 mg Magnesium Hydroxide (Milk Of Magnesia) 30 ml PO HS PRN PRN Reason: Constipation Metoprolol Tartrate (Lopressor) 25 mg PO BID [facility] Stop: 02/09/18 08:59 Last Admin: 12/26/17 17:08 Dose: Not Given Nitroglycerin (Nitrostat) 0.4 mg SL Q5MIN PRN PRN Reason: Chest Pain Stop: 02/08/18 18:09 Quetiapine Fumarate (Seroquel) 25 mg PO BID [facility]; Protocol Stop: 02/11/18 16:59 Last Admin: 12/26/17 17:10 Dose: 25 mg Zolpidem Tartrate (Ambien) 5 mg PO HS PRN PRN Reason: Insomnia Stop: 02/08/18 19:18 Last Admin: 12/25/17 20:47 Dose: 5 mg General: demented HEENT: NC/AT, PERRLA, EOMI, anicteric sclerae, throat clear Neck: No thyromegaly, +2 carotid pulse wo bruit, + JVD Lungs: CTAB Cardiovascular: RRR, Normal S1, Normal S2, without murmur Abdomen: soft, non-tender, non-distended Extremities: clear Neurological: no change Internal Medicine Assmt/Plan - Assessment Assessment: 1.DM. 2.HTN. 3.CVA. 4.CAD. 5.HYPERLIPIDEMIA. 6.DEMENTIA. - Plan Plan: CONTINUE ON CURRENT MEDICATION AND DIET. Nutritional Asmnt/Malnutr-PDOC - Dietary Evaluation Malnutrition Findings (Please click <Entered> for more info): Nutritional Asmnt/Malnutrition Start: 12/12/17 09: 52 Text: Status: Complete Freq: Protocol: Document 12/12/17 09:52 KARELY (Rec: 12/12/17 10:04 KARELY GONZALEZ- FNS1) Nutritional Asmnt/Malnutrition Patient General Information Nutritional Screening High Risk Consult Diagnosis Psychosis, cardiac disease Pertinent Medical Hx/Surgical Hx insulin-dependent diabetes, hypertension, CVA with left- sided weakness, coronary artery disease, hyperlipidemia , depression Subjective Information Consult received for cardiac diet. patient was admitted with BG 639. Patient in room at time of RD visit. Tolerating current diet order with adequate intake. Current Diet Order/ Nutrition Support Cardiac diet Patient / S.O Not Indicated Pertinent Medications maalox, lipitor, colace, novolog, levemir, MOM, Theragran Pertinent Labs Glucose 47-639, HGA1C 9.4, albumin 3.6 Nutritional Hx/Data Height 1.5 m Height (Calculated Centimeters) 149.9 Current Weight (lbs) 68.039 kg Weight (Calculated Kilograms) 68.0 Weight (Calculated Grams) 82071.9 [place] Body Weight 97.5 % [place] Body Weight 153 Body Mass Index (BMI) 30.2 Recent Weight Change No Weight Status Obese GI Symptoms GI Symptoms None Last BM none noted in EMR Difficult in: None Food Allergies No Cultural/Ethnic/Confucianism Belief none indicated Usual diet at home unknown Skin Integrity/Comment: Roberto 17, No symptoms, abdomen soft, non-tender, round Current %PO Good (75-100%) Estimated Nutritional Goals BEE in Kcals: Adj wt of IBW Calories/Kcals/Kg 25-30 kcal/kg (using Adj wt 50 .2kg ) Kcals Calculated 6678-6491 kcal/day Protein: Adj wt of IBW Protein g/k-1.2 gm/kg Protein Calculated 50-60gm/day Fluid: ml 8530-5200 ml/day Nutritional Problem 1. Problem Problem Altered nutrition related lab values Etiology related to uncontrolled blood sugar aeb Signs/Symptoms: Glucose 47-639, HGA1C 9.4 Intervention/Recommendation Comments 1. Consider modifying diet to 45gm CCHO, cardiac diet. 2. MD to continue to modify insulin regimen for optimal glycemic control. Expected Outcomes/Goals Expected Outcomes/Goals Oral intake >75% of meals, weight stable or trend toward ideal body weight, nutrition related labs normalize
[2017-12-27] MEDS: INSULIN ASPART SLIDING SCALE 100 UNITS/ML UNIT SUBQ SCH ×4 (06:31→20:17)
[2017-12-27] MEDS: Multivitamin w/ Minerals Tab PO SCH (08:24)
[2017-12-27] MEDS: Insulin Detemir 100 units/mL 10mL Vial SUBQ SCH ×2 (09:07→20:21)
--- NOTE | 2017-12-27 13:28 | Internal Medicine Prog Note ---
Internal Medicine Subjective - Subjective Service Date: 12/27/17 Patient is:: awake, verbal, arousable, in bed, talking, confused Per staff patient has:: no adverse event Internal Medicine Objective - Results Result Diagrams: 12/10/17 15:35 12/12/17 06:18 Recent Labs: Laboratory Last Values WBC 5.2 Th/cmm (4.8-10.8) 12/10/17 15:35 RBC 4.56 Mil/cmm (3.80-5.10) 12/10/17 15:35 Hgb 14.2 gm/dL (12-16) 12/10/17 15:35 Hct 42.4 % (41.0-60) 12/10/17 15:35 MCV 93.2 fl (81-100) 12/10/17 15:35 MCH 31.2 pg (27.0-31.0) H 12/10/17 15:35 MCHC Differential 33.5 pg (28.0-36.0) 12/10/17 15:35 RDW 12.5 % (11.5-20.0) 12/10/17 15:35 Plt Count 214 Th/cmm (150-400) 12/10/17 15:35 MPV 10.7 fl 12/10/17 15:35 Neutrophils % 66.2 % (40.0-80.0) 12/10/17 15:35 Lymphocytes % 27.0 % (20.0-50.0) 12/10/17 15:35 Monocytes % 4.4 % (2.0-10.0) 12/10/17 15:35 Eosinophils % 1.4 % (0.0-5.0) 12/10/17 15:35 Basophils % 1.0 % (0.0-2.0) 12/10/17 15:35 PT 10.2 SECONDS (9.5-11.5) 12/10/17 15:35 INR 0.98 (0.5-1.4) 12/10/17 15:35 PTT (Actin FS) 19.6 SECONDS (26.0-38.0) L 12/10/17 15:35 Sodium 140 mEq/L (136-145) 12/12/17 06:18 Potassium 3.6 mEq/L (3.5-5.1) 12/12/17 06:18 Chloride 106 mEq/L (98-107) 12/12/17 06:18 Carbon Dioxide 28.3 mEq/L (21.0-31.0) 12/12/17 06:18 Anion Gap 9.3 (7.0-16.0) 12/12/17 06:18 BUN 19 mg/dL (7-25) 12/12/17 06:18 Creatinine 0.5 mg/dL (0.6-1.2) L 12/12/17 06:18 Est GFR ( Amer) > 60.0 ml/min (>90) 12/12/17 06:18 Est GFR (Non-Af Amer) > 60.0 ml/min 12/12/17 06:18 BUN/Creatinine Ratio 38.0 12/12/17 06:18 Glucose 507 mg/dL (70-105) H* 12/24/17 12:03 POC Glucose 292 MG/DL (70 - 105) H 12/27/17 11:52 Hemoglobin A1c % 9.4 % (4.0-6.0) H 12/10/17 15:35 Calcium 9.3 mg/dL (8.6-10.3) 12/12/17 06:18 Total Bilirubin 0.3 mg/dL (0.3-1.0) 12/10/17 15:35 AST 29 U/L (13-39) 12/10/17 15:35 ALT 29 U/L (7-52) 12/10/17 15:35 Alkaline Phosphatase 120 U/L (34-104) H 12/10/17 15:35 Troponin I 0.01 ng/mL (0.01-0.05) 12/10/17 15:35 Total Protein 6.3 gm/dL (6.0-8.3) 12/10/17 15:35 Albumin 3.6 gm/dL (3.7-5.3) L 12/10/17 15:35 Globulin 2.7 gm/dL 12/10/17 15:35 Albumin/Globulin Ratio 1.3 (1.0-1.8) 12/10/17 15:35 Triglycerides 148 mg/dL (<150) 12/16/17 07:38 Cholesterol 155 mg/dL (<200) 12/16/17 07:38 LDL Cholesterol Direct 91 mg/dL (75-193) 12/16/17 07:38 HDL Cholesterol 46 mg/dL (23-92) 12/16/17 07:38 TSH 1.11 uIU/ml (0.34-5.60) 12/10/17 15:35 Urine Source CLEAN C 12/10/17 17:55 Urine Color YELLOW 12/10/17 17:55 Urine Clarity CLOUDY (CLEAR) H 12/10/17 17:55 Urine pH 6.0 (4.6 - 8.0) 12/10/17 17:55 Ur Specific [place] <= 1.005 (1.005-1.030) 12/10/17 17:55 Urine Protein NEGATIVE mg/dL (NEGATIVE) 12/10/17 17:55 Urine Glucose (UA) >=1000 mg/dL (NEGATIVE) H 12/10/17 17:55 Urine Ketones TRACE mg/dL (NEGATIVE) 12/10/17 17:55 Urine Blood LARGE (NEGATIVE) H 12/10/17 17:55 Urine Nitrate NEGATIVE (NEGATIVE) 12/10/17 17:55 Urine Bilirubin NEGATIVE (NEGATIVE) 12/10/17 17:55 Urine Urobilinogen 0.2 E.U./dL (0.2 - 1.0) 12/10/17 17:55 Ur Leukocyte Esterase TRACE (NEGATIVE) H 12/10/17 17:55 Urine RBC 5-10 /hpf (0-5) H 12/10/17 17:55 Urine WBC 2-5 /hpf (0-5) 12/10/17 17:55 Ur Epithelial Cells OCCASIONAL /lpf (FEW) 12/10/17 17:55 Amorphous Sediment MODERATE URATES (NONE SEEN) 12/10/17 17:55 Urine Bacteria FEW /hpf (NONE SEEN) 12/10/17 17:55 RPR NONREACTIVE (NONREACTIVE) 12/10/17 15:35 - Physical Exam Vitals and I&O: Vital Signs Temp 98.1 F 12/27/17 06:30 Pulse 75 12/27/17 08:24 Resp 18 12/27/17 06:30 BP 114/59 12/27/17 08:24 Pulse Ox 97 12/27/17 06:30 Intake & Output 12/26/17 12/27/17 12/27/17 18:59 06:59 18:59 Intake Total 950 120 Balance 950 120 Intake: Oral 950 120 Other: # Voids 4 3 # Bowel Movements 1 1 Active Medications: Current Medications Acetaminophen (Tylenol) 650 mg PO Q4HR PRN PRN Reason: Mild Pain / Temp above 100 Stop: 02/08/18 19:18 Last Admin: 12/19/17 09:35 Dose: 650 mg Al Hydrox/Mg Hydrox/Simethicone (Maalox) 30 ml PO Q4HR PRN PRN Reason: GI DISTRESS Stop: 02/14/18 10:50 Atorvastatin Calcium (Lipitor) 40 mg PO HS [facility]; Protocol Stop: 02/08/18 20:59 Last Admin: 12/26/17 20:52 Dose: 40 mg Clopidogrel Bisulfate (Plavix) 75 mg PO DAILY [facility] Stop: 02/09/18 08:59 Last Admin: 12/27/17 08:25 Dose: 75 mg Docusate Sodium (Colace) 100 mg PO DAILY [facility] Stop: 02/09/18 08:59 Last Admin: 12/27/17 08:24 Dose: 100 mg Insulin Aspart (Novolog Insulin Sliding Scale) 0 units SUBQ ACHS [facility]; Protocol Stop: 01/22/18 07:29 Last Admin: 12/27/17 12:47 Dose: 7 units Insulin Detemir (Levemir Insulin) 30 units SUBQ HS [facility] Stop: 02/09/18 20:59 Last Admin: 12/26/17 20:51 Dose: Not Given Insulin Detemir (Levemir Insulin) 15 units SUBQ DAILY [facility]; Protocol Stop: 02/22/18 08:59 Last Admin: 12/27/17 09:07 Dose: 15 units Lorazepam (Ativan) 0.5 mg PO Q4HR PRN; Protocol PRN Reason: Anxiety Stop: 01/09/18 19:18 Last Admin: 12/26/17 20:51 Dose: 0.5 mg Magnesium Hydroxide (Milk Of Magnesia) 30 ml PO HS PRN PRN Reason: Constipation Memantine (Namenda) 5 mg PO DAILY [facility] Stop: 02/26/18 08:59 Metoprolol Tartrate (Lopressor) 25 mg PO BID [facility] Stop: 02/09/18 08:59 Last Admin: 12/27/17 08:24 Dose: 25 mg Nitroglycerin (Nitrostat) 0.4 mg SL Q5MIN PRN PRN Reason: Chest Pain Stop: 02/08/18 18:09 Quetiapine Fumarate (Seroquel) 25 mg PO BID [facility]; Protocol Stop: 02/11/18 16:59 Last Admin: 12/27/17 08:24 Dose: 25 mg Zolpidem Tartrate (Ambien) 5 mg PO HS PRN PRN Reason: Insomnia Stop: 02/08/18 19:18 Last Admin: 12/26/17 20:51 Dose: 5 mg General: demented HEENT: NC/AT, PERRLA, EOMI, anicteric sclerae, throat clear Neck: No thyromegaly, +2 carotid pulse wo bruit, + JVD Lungs: CTAB Cardiovascular: RRR, Normal S1, Normal S2, without murmur Abdomen: soft, non-tender, non-distended Extremities: clear Neurological: no change Internal Medicine Assmt/Plan - Assessment Assessment: 1.DM. 2.HTN. 3.CVA. 4.CAD. 5.HYPERLIPIDEMIA. 6.DEMENTIA. - Plan Plan: CONTINUE ON CURRENT MEDICATION AND DIET. Nutritional Asmnt/Malnutr-PDOC - Dietary Evaluation Malnutrition Findings (Please click <Entered> for more info): Nutritional Asmnt/Malnutrition Start: 12/12/17 09: 52 Text: Status: Complete Freq: Protocol: Document 12/12/17 09:52 KARELY (Rec: 12/12/17 10:04 KARELY GONAZLEZ- [email or web address]) Nutritional Asmnt/Malnutrition Patient General Information Nutritional Screening High Risk Consult Diagnosis Psychosis, cardiac disease Pertinent Medical Hx/Surgical Hx insulin-dependent diabetes, hypertension, CVA with left- sided weakness, coronary artery disease, hyperlipidemia , depression Subjective Information Consult received for cardiac diet. patient was admitted with BG 639. Patient in room at time of RD visit. Tolerating current diet order with adequate intake. Current Diet Order/ Nutrition Support Cardiac diet Patient / S.O Not Indicated Pertinent Medications maalox, lipitor, colace, novolog, levemir, MOM, Theragran Pertinent Labs Glucose 47-639, HGA1C 9.4, albumin 3.6 Nutritional Hx/Data Height 1.5 m Height (Calculated Centimeters) 149.9 Current Weight (lbs) 68.039 kg Weight (Calculated Kilograms) 68.0 Weight (Calculated Grams) 61055.9 [place] Body Weight 97.5 % [place] Body Weight 153 Body Mass Index (BMI) 30.2 Recent Weight Change No Weight Status Obese GI Symptoms GI Symptoms None Last BM none noted in EMR Difficult in: None Food Allergies No Cultural/Ethnic/Pent[employer]ostalism Belief none indicated Usual diet at home unknown Skin Integrity/Comment: Roberto 17, No symptoms, abdomen soft, non-tender, round Current %PO Good (75-100%) Estimated Nutritional Goals BEE in Kcals: Adj wt of IBW Calories/Kcals/Kg 25-30 kcal/kg (using Adj wt 50 .2kg ) Kcals Calculated 9321-0431 kcal/day Protein: Adj wt of IBW Protein g/k-1.2 gm/kg Protein Calculated 50-60gm/day Fluid: ml 3122-7729 ml/day Nutritional Problem 1. Problem Problem Altered nutrition related lab values Etiology related to uncontrolled blood sugar aeb Signs/Symptoms: Glucose 47-639, HGA1C 9.4 Intervention/Recommendation Comments 1. Consider modifying diet to 45gm CCHO, cardiac diet. 2. MD to continue to modify insulin regimen for optimal glycemic control. Expected Outcomes/Goals Expected Outcomes/Goals Oral intake >75% of meals, weight stable or trend toward ideal body weight, nutrition related labs normalize
--- NOTE | 2017-12-28 02:39 | Progress Notes ---
DATE: SUBJECTIVE: The patient is currently in the hospital, still agitated, had been doing better, but seems to be impulsive, unpredictable, yelling, screaming toward peers, irritable, anxious, disorganized, no motivation for self-care, very confused, disoriented, only knows where she is, monitoring also her blood sugars. She has some pretty serious medical problems, out of control blood sugars, but seems to be stabilizing and normalizing in this regard. I am awaiting the patient to stabilize psychiatrically. She remains depressed, easily agitated. ASSESSMENT: The patient remains symptomatic, ongoing concerns about her behaviors. Consider Aricept or Namenda. PLAN: We will continue to monitor and follow up. Her blood sugars do seem to be stabilizing on some level. JOB# [id number]
[2017-12-28] MEDS: INSULIN ASPART SLIDING SCALE 100 UNITS/ML UNIT SUBQ SCH ×4 (06:31→20:28)
[2017-12-28] MEDS: Multivitamin w/ Minerals Tab PO SCH (08:12)
[2017-12-28] MEDS: Insulin Detemir 100 units/mL 10mL Vial SUBQ SCH ×2 (09:00→20:28)
--- NOTE | 2017-12-28 18:08 | Discharge Summary ---
DATE OF DISCHARGE: 12/28/2017 JUSTIFICATION FOR HOSPITALIZATION: Agitation and escalation of behaviors. HISTORY OF PRESENT ILLNESS: This is a 62-year-old female, aggressive, agitated, believing she was locked in the house, confused, disoriented, making nonsensical statements, combative, lashing out at staff, alert and oriented to name only, anxiety noted. PAST PSYCHIATRIC HISTORY: Behavioral disturbances in the past, seeming dementia. SOCIAL HISTORY: Born in [place], currently , 3 children. MEDICATIONS: Noted. MENTAL STATUS EXAMINATION: Please see full psych eval for details. PROVISIONAL DIAGNOSES: Psychosis, unspecified; mood, unspecified; anxiety, unspecified. Under medical please see full H and P. HOSPITAL COURSE: Initial assessment, the patient was restarted on medications, low dose Seroquel was initiated because the patient was so agitated and aggressive and combative and this calmed her down robustly. Her confusion persisted, her confusion remain but she was calmer, more cooperative, toward the latter end of her hospitalization, there were no further behavioral disturbances. She was having some fluctuations with her blood sugar, but this seems to normalize and on 12/28/2017, she was stepped down to a lower level of care. CONDITION UPON DISCHARGE: Improved. Fair ADLs, good eye contact. Mood "better." Affect constricted. Thought processes were confused, disoriented. No SI, no HI, no psychotic symptoms. Insight and judgment are still poor, impulse control, much better. The patient is calm, cooperative, no longer combative. DISCHARGE DIAGNOSES: Dementia, dementia with behaviors; psychosis, unspecified; mood, unspecified; anxiety, unspecified. Under medical please see full H and P. PROGNOSIS: The patient follows up with outpatient mental health services and remains compliant with treatment. Prognosis will improve, otherwise guarded. JOB# [id number]
--- NOTE | 2017-12-28 22:39 | Internal Medicine Prog Note ---
Internal Medicine Subjective - Subjective Service Date: 12/28/17 Patient seen and examined:: with staff Patient is:: awake, verbal, arousable, in bed, talking, confused Per staff patient has:: no adverse event Internal Medicine Objective - Results Result Diagrams: 12/10/17 15:35 12/12/17 06:18 Recent Labs: Laboratory Last Values WBC 5.2 Th/cmm (4.8-10.8) 12/10/17 15:35 RBC 4.56 Mil/cmm (3.80-5.10) 12/10/17 15:35 Hgb 14.2 gm/dL (12-16) 12/10/17 15:35 Hct 42.4 % (41.0-60) 12/10/17 15:35 MCV 93.2 fl (81-100) 12/10/17 15:35 MCH 31.2 pg (27.0-31.0) H 12/10/17 15:35 MCHC Differential 33.5 pg (28.0-36.0) 12/10/17 15:35 RDW 12.5 % (11.5-20.0) 12/10/17 15:35 Plt Count 214 Th/cmm (150-400) 12/10/17 15:35 MPV 10.7 fl 12/10/17 15:35 Neutrophils % 66.2 % (40.0-80.0) 12/10/17 15:35 Lymphocytes % 27.0 % (20.0-50.0) 12/10/17 15:35 Monocytes % 4.4 % (2.0-10.0) 12/10/17 15:35 Eosinophils % 1.4 % (0.0-5.0) 12/10/17 15:35 Basophils % 1.0 % (0.0-2.0) 12/10/17 15:35 PT 10.2 SECONDS (9.5-11.5) 12/10/17 15:35 INR 0.98 (0.5-1.4) 12/10/17 15:35 PTT (Actin FS) 19.6 SECONDS (26.0-38.0) L 12/10/17 15:35 Sodium 140 mEq/L (136-145) 12/12/17 06:18 Potassium 3.6 mEq/L (3.5-5.1) 12/12/17 06:18 Chloride 106 mEq/L (98-107) 12/12/17 06:18 Carbon Dioxide 28.3 mEq/L (21.0-31.0) 12/12/17 06:18 Anion Gap 9.3 (7.0-16.0) 12/12/17 06:18 BUN 19 mg/dL (7-25) 12/12/17 06:18 Creatinine 0.5 mg/dL (0.6-1.2) L 12/12/17 06:18 Est GFR ( Amer) > 60.0 ml/min (>90) 12/12/17 06:18 Est GFR (Non-Af Amer) > 60.0 ml/min 12/12/17 06:18 BUN/Creatinine Ratio 38.0 12/12/17 06:18 Glucose 507 mg/dL (70-105) H* 12/24/17 12:03 POC Glucose 169 MG/DL (70 - 105) H 12/28/17 16:19 Hemoglobin A1c % 9.4 % (4.0-6.0) H 12/10/17 15:35 Calcium 9.3 mg/dL (8.6-10.3) 12/12/17 06:18 Total Bilirubin 0.3 mg/dL (0.3-1.0) 12/10/17 15:35 AST 29 U/L (13-39) 12/10/17 15:35 ALT 29 U/L (7-52) 12/10/17 15:35 Alkaline Phosphatase 120 U/L (34-104) H 12/10/17 15:35 Troponin I 0.01 ng/mL (0.01-0.05) 12/10/17 15:35 Total Protein 6.3 gm/dL (6.0-8.3) 12/10/17 15:35 Albumin 3.6 gm/dL (3.7-5.3) L 12/10/17 15:35 Globulin 2.7 gm/dL 12/10/17 15:35 Albumin/Globulin Ratio 1.3 (1.0-1.8) 12/10/17 15:35 Triglycerides 148 mg/dL (<150) 12/16/17 07:38 Cholesterol 155 mg/dL (<200) 12/16/17 07:38 LDL Cholesterol Direct 91 mg/dL (75-193) 12/16/17 07:38 HDL Cholesterol 46 mg/dL (23-92) 12/16/17 07:38 TSH 1.11 uIU/ml (0.34-5.60) 12/10/17 15:35 Urine Source CLEAN C 12/10/17 17:55 Urine Color YELLOW 12/10/17 17:55 Urine Clarity CLOUDY (CLEAR) H 12/10/17 17:55 Urine pH 6.0 (4.6 - 8.0) 12/10/17 17:55 Ur Specific [place] <= 1.005 (1.005-1.030) 12/10/17 17:55 Urine Protein NEGATIVE mg/dL (NEGATIVE) 12/10/17 17:55 Urine Glucose (UA) >=1000 mg/dL (NEGATIVE) H 12/10/17 17:55 Urine Ketones TRACE mg/dL (NEGATIVE) 12/10/17 17:55 Urine Blood LARGE (NEGATIVE) H 12/10/17 17:55 Urine Nitrate NEGATIVE (NEGATIVE) 12/10/17 17:55 Urine Bilirubin NEGATIVE (NEGATIVE) 12/10/17 17:55 Urine Urobilinogen 0.2 E.U./dL (0.2 - 1.0) 12/10/17 17:55 Ur Leukocyte Esterase TRACE (NEGATIVE) H 12/10/17 17:55 Urine RBC 5-10 /hpf (0-5) H 12/10/17 17:55 Urine WBC 2-5 /hpf (0-5) 12/10/17 17:55 Ur Epithelial Cells OCCASIONAL /lpf (FEW) 12/10/17 17:55 Amorphous Sediment MODERATE URATES (NONE SEEN) 12/10/17 17:55 Urine Bacteria FEW /hpf (NONE SEEN) 12/10/17 17:55 RPR NONREACTIVE (NONREACTIVE) 12/10/17 15:35 - Physical Exam Vitals and I&O: Vital Signs Temp 97.5 F 12/28/17 20:00 Pulse 76 12/28/17 20:00 Resp 18 12/28/17 20:00 BP 106/59 12/28/17 20:00 Pulse Ox 97 12/28/17 20:00 Intake & Output 12/28/17 12/28/17 12/29/17 06:59 18:59 06:59 Intake Total 120 1200 Balance 120 1200 Intake: Oral 120 1200 Other: # Voids 3 Active Medications: Current Medications Acetaminophen (Tylenol) 650 mg PO Q4HR PRN PRN Reason: Mild Pain / Temp above 100 Stop: 02/08/18 19:18 Last Admin: 12/19/17 09:35 Dose: 650 mg Al Hydrox/Mg Hydrox/Simethicone (Maalox) 30 ml PO Q4HR PRN PRN Reason: GI DISTRESS Stop: 02/14/18 10:50 Atorvastatin Calcium (Lipitor) 40 mg PO HS [facility]; Protocol Stop: 02/08/18 20:59 Last Admin: 12/28/17 20:27 Dose: 40 mg Clopidogrel Bisulfate (Plavix) 75 mg PO DAILY [facility] Stop: 02/09/18 08:59 Last Admin: 12/28/17 08:12 Dose: 75 mg Docusate Sodium (Colace) 100 mg PO DAILY [facility] Stop: 02/09/18 08:59 Last Admin: 12/28/17 08:13 Dose: 100 mg Insulin Aspart (Novolog Insulin Sliding Scale) 0 units SUBQ ACHS [facility]; Protocol Stop: 01/22/18 07:29 Last Admin: 12/28/17 20:28 Dose: 13 units Insulin Detemir (Levemir Insulin) 30 units SUBQ HS [facility] Stop: 02/09/18 20:59 Last Admin: 12/28/17 20:28 Dose: 30 units Insulin Detemir (Levemir Insulin) 15 units SUBQ DAILY [facility]; Protocol Stop: 02/22/18 08:59 Last Admin: 12/28/17 09:00 Dose: 15 units Lorazepam (Ativan) 0.5 mg PO Q4HR PRN; Protocol PRN Reason: Anxiety Stop: 01/09/18 19:18 Last Admin: 12/28/17 12:44 Dose: 0.5 mg Magnesium Hydroxide (Milk Of Magnesia) 30 ml PO HS PRN PRN Reason: Constipation Memantine (Namenda) 5 mg PO DAILY [facility] Stop: 02/26/18 08:59 Last Admin: 12/28/17 08:12 Dose: 5 mg Metoprolol Tartrate (Lopressor) 25 mg PO BID [facility] Stop: 02/09/18 08:59 Last Admin: 12/28/17 17:07 Dose: 25 mg Nitroglycerin (Nitrostat) 0.4 mg SL Q5MIN PRN PRN Reason: Chest Pain Stop: 02/08/18 18:09 Quetiapine Fumarate (Seroquel) 25 mg PO BID [facility]; Protocol Stop: 02/11/18 16:59 Last Admin: 12/28/17 17:07 Dose: 25 mg Zolpidem Tartrate (Ambien) 5 mg PO HS PRN PRN Reason: Insomnia Stop: 02/08/18 19:18 Last Admin: 12/26/17 20:51 Dose: 5 mg General: demented HEENT: NC/AT, PERRLA, EOMI, anicteric sclerae, throat clear Neck: No thyromegaly, +2 carotid pulse wo bruit, + JVD Lungs: CTAB Cardiovascular: RRR, Normal S1, Normal S2, without murmur Abdomen: soft, non-tender, non-distended Extremities: clear Neurological: no change Internal Medicine Assmt/Plan - Assessment Assessment: 1.DM. 2.HTN. 3.CVA. 4.CAD. 5.HYPERLIPIDEMIA. 6.DEMENTIA. - Plan Plan: CONTINUE ON CURRENT MEDICATION AND DIET. Nutritional Asmnt/Malnutr-PDOC - Dietary Evaluation Malnutrition Findings (Please click <Entered> for more info): Nutritional Asmnt/Malnutrition Start: 12/12/17 09: 52 Text: Status: Complete Freq: Protocol: Document 12/12/17 09:52 KARELY (Rec: 12/12/17 10:04 KARELY GONZALEZ- FNS1) Nutritional Asmnt/Malnutrition Patient General Information Nutritional Screening High Risk Consult Diagnosis Psychosis, cardiac disease Pertinent Medical Hx/Surgical Hx insulin-dependent diabetes, hypertension, CVA with left- sided weakness, coronary artery disease, hyperlipidemia , depression Subjective Information Consult received for cardiac diet. patient was admitted with BG 639. Patient in room at time of RD visit. Tolerating current diet order with adequate intake. Current Diet Order/ Nutrition Support Cardiac diet Patient / S.O Not Indicated Pertinent Medications maalox, lipitor, colace, novolog, levemir, MOM, Theragran Pertinent Labs Glucose 47-639, HGA1C 9.4, albumin 3.6 Nutritional Hx/Data Height 1.5 m Height (Calculated Centimeters) 149.9 Current Weight (lbs) 68.039 kg Weight (Calculated Kilograms) 68.0 Weight (Calculated Grams) 79669.9 [place] Body Weight 97.5 % [place] Body Weight 153 Body Mass Index (BMI) 30.2 Recent Weight Change No Weight Status Obese GI Symptoms GI Symptoms None Last BM none noted in EMR Difficult in: None Food Allergies No Cultural/Ethnic/Rastafarian Belief none indicated Usual diet at home unknown Skin Integrity/Comment: Roberto 17, No symptoms, abdomen soft, non-tender, round Current %PO Good (75-100%) Estimated Nutritional Goals BEE in Kcals: Adj wt of IBW Calories/Kcals/Kg 25-30 kcal/kg (using Adj wt 50 .2kg ) Kcals Calculated 2456-0177 kcal/day Protein: Adj wt of IBW Protein g/k-1.2 gm/kg Protein Calculated 50-60gm/day Fluid: ml 7329-5546 ml/day Nutritional Problem 1. Problem Problem Altered nutrition related lab values Etiology related to uncontrolled blood sugar aeb Signs/Symptoms: Glucose 47-639, HGA1C 9.4 Intervention/Recommendation Comments 1. Consider modifying diet to 45gm CCHO, cardiac diet. 2. MD to continue to modify insulin regimen for optimal glycemic control. Expected Outcomes/Goals Expected Outcomes/Goals Oral intake >75% of meals, weight stable or trend toward ideal body weight, nutrition related labs normalize
[2017-12-29] MEDS: INSULIN ASPART SLIDING SCALE 100 UNITS/ML UNIT SUBQ SCH ×3 (06:35→16:36)
[2017-12-29] MEDS: Multivitamin w/ Minerals Tab PO SCH (08:52)
[2017-12-29] MEDS: Insulin Detemir 100 units/mL 10mL Vial SUBQ SCH (09:38)
--- NOTE | 2017-12-29 16:04 | Progress Notes ---
DATE: 12/29/2017 The patient was to have left yesterday, delay in discharge. The patient leaves today. No SI, no HI, no psychosis, no aggressive behaviors. Better control of her blood sugar. MEDICATIONS: Reviewed. DICTATIONS ENDS HERE JOB# [id number]
== END 2017-12-29 17:15 | DRG 885 ==
LOC: ER 15:05 → GERO 17:30
PROVIDERS: ADMIT Psychiatry & Neurology Psychiatry; ATTEND Psychiatry & Neurology Psychiatry
DX: F29 Unspecified psychosis not due to a substance or known physiological condition (principal); I69.354 Hemiplegia and hemiparesis following cerebral infarction affecting left non-dominant side; F03.91 Unspecified dementia, unspecified severity, with behavioral disturbance; F39 Unspecified mood [affective] disorder; F41.9 Anxiety disorder, unspecified; E11.9 Type 2 diabetes mellitus without complications; I10 Essential (primary) hypertension; I25.10 Atherosclerotic heart disease of native coronary artery without angina pectoris; E78.5 Hyperlipidemia, unspecified; F32.9 Major depressive disorder, single episode, unspecified; Z95.5 Presence of coronary angioplasty implant and graft; Z88.6 Allergy status to analgesic agent; Z79.4 Long term (current) use of insulin
CPT/HCPCS: 36415-UA; 71045-TC; 80048-TC; 80053-TC; 80061-TC; 81001-TC; 82947-TC; 82948-90; 83036-90; 84443-TC; 84484-TC; 85025-TC; 85610-TC; 85730-TC; 86592-TC; 87086-90; 90899; 93005; 97530; G0410; J1815; X3904; Z7610